=== PATIENT | female | born 1965 | race Caucasian/White ===

== ENCOUNTER → 2019-10-09 08:44 | Outpatient (BNVA) | payer MEDICAID, SELFPAY | PROVIDERS: PCP Family Medicine; Referring Provider Internal Medicine Rheumatology; Visit Provider Internal Medicine Rheumatology | DX: M05.9 Rheumatoid arthritis with rheumatoid factor, unspecified (principal); Z79.899 Other long term (current) drug therapy; Z11.59 Encounter for screening for other viral diseases; M81.0 Age-related osteoporosis without current pathological fracture; D49.519 Neoplasm of unspecified behavior of unspecified kidney; Z79.52 Long term (current) use of systemic steroids; Z72.89 Other problems related to lifestyle | CPT/HCPCS: 36415; 80076; 82306; 82565; 85651; 86140; 86704; 99214 ==

== ENCOUNTER → 2019-10-09 09:50 | Outpatient (BNVA) | payer MEDICAID, SELFPAY | PROVIDERS: PCP Family Medicine; Referring Provider Internal Medicine Rheumatology; Visit Provider Internal Medicine Rheumatology | DX: M05.9 Rheumatoid arthritis with rheumatoid factor, unspecified (principal); Z79.899 Other long term (current) drug therapy; Z11.59 Encounter for screening for other viral diseases; M81.0 Age-related osteoporosis without current pathological fracture; D49.519 Neoplasm of unspecified behavior of unspecified kidney; Z79.52 Long term (current) use of systemic steroids | CPT/HCPCS: 85025 ==

== ENCOUNTER → 2020-01-01 10:32 | Outpatient (BNVA) | payer MEDICAID, SELFPAY | PROVIDERS: PCP Family Medicine; Visit Provider Family Medicine | DX: Z90.5 Acquired absence of kidney (principal); M19.90 Unspecified osteoarthritis, unspecified site | CPT/HCPCS: 80053; 81000; 85025 ==

== ENCOUNTER → 2020-03-19 08:44 | Outpatient (BNVA) | payer MEDICAID, SELFPAY | PROVIDERS: PCP Family Medicine; Visit Provider Internal Medicine Rheumatology | DX: M05.79 Rheumatoid arthritis with rheumatoid factor of multiple sites without organ or systems involvement (principal); Z79.899 Other long term (current) drug therapy; R79.89 Other specified abnormal findings of blood chemistry; Z79.52 Long term (current) use of systemic steroids; Z85.528 Personal history of other malignant neoplasm of kidney; Z90.5 Acquired absence of kidney; Z87.891 Personal history of nicotine dependence | CPT/HCPCS: 36415; 82565; 84520; 99214 ==

== ENCOUNTER 2020-06-06 10:34 | Emergency (ER) | payer MEDICAID, SELFPAY ==
[2020-06-06 10:55] VITALS: BP 134/83; PULSE 78; RESP 18; TEMP 36.8; O2SAT 99; BMI 27.1
--- NOTE | 2020-06-06 11:09 | W.ED.NEUROSD ---
HPI - Neuro Symptoms/Deficit General: Chief Complaint: Neuro Symptoms/Deficit Stated Complaint: pain on the left side of head Time Seen by Provider: 06/06/20 11:04 Source: patient Mode of arrival: ambulatory Limitations: no limitations History of Present Illness: HPI Narrative: 54-year-old female who has a history of trigeminal neuralgia. Patient states she is scheduled for surgery next week for trigeminal neuralgia but is had a flare this week. She is unable to take carbamazepine due to allergic reactions to it. She is only been taken Tylenol. States pain is sharp in nature and rates it a 8 out of 10. Denies any fevers. Has no rash. Associated symptoms: Deny chest pain, headache(s), nausea or vomiting Review of Systems Const: Denies: fever(s), chills, body aches or change in appetite Eyes: Denies: blurry vision or eye discomfort ENMT: Reports: sinus pain Card: Denies: chest pain Resp: Denies: dyspnea GI: Denies: abdominal pain, nausea, vomiting or diarrhea : Denies: dysuria Musc: Denies: neck pain or back pain Skin/Breast: Denies: rash Neuro: Denies: headache(s) Psych: Denies: depression Luigi/Lymph: Denies: easy bruising All/Imm: Denies: urticaria PFSH ED PFSH: Medical History Current chronic use of systemic steroids GERD (gastroesophageal reflux disease) High risk medication use History of kidney cancer Immunization counseling Neoplasm of kidney Osteoporosis 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 Single kidney Surgical History Hx of tonsillectomy Family History Mother Cancer Diabetes Hypertension CAD (coronary artery disease) Rheumatoid arthritis Father Hypertension CAD (coronary artery disease) Myocardial infarction Other Heart disease Lupus Denies family history of Chronic kidney disease (CKD) Systemic lupus erythematosus (SLE) in adult Stroke Social History Smoking and tobacco status: former smoker Quit status (tobacco): has quit using tobacco Alcohol intake: never Desire information about alcohol rehabilitation?: No Desire information about substance/drug rehabilitation?: No History of recent travel: No Current gender identity: Female Physical Exam Const: COMMON NORMALS: no acute distress, patient oriented x3 and healthy appearing HENMT: COMMON NORMALS: normocephalic and atraumatic HEAD & SCALP: normocephalic and atraumatic Eye: COMMON NORMALS: Equal, round and reactive pupils present and EOMs intact bilaterally PUPIL: Yes Equal, round and reactive pupils present Neck/C-Spine: COMMON NORMALS: full ROM and supple Chest: COMMONS NORMALS: normal inspection of the chest and normal palpation of entire chest wall Resp: COMMON NORMALS: normal respiratory effort, No retractions, No use of accessory muscles and clear to auscultation bilaterally AUSCULTATION: clear to auscultation bilaterally Cardio: COMMON NORMALS: regular rate, regular rhythm and No murmurs present (Cardio) RATE: regular rate RHYTHM: regular rhythm GI: COMMON NORMALS: Normal to inspection, nondistended, normoactive bowel sounds present, Soft to palpation, non-tender and no masses PALPATION: Yes Soft to palpation Extremity: COMMON NORMALS: normal to inspection and full ROM Neuro: COMMON NORMALS: patient oriented x3, moves all extremities and no focal motor deficits Psych: COMMON NORMALS: mental status grossly normal, Normal thought process present and cooperative THOUGHT PROCESS: Normal thought process present Skin: COMMON NORMALS: no rashes or lesions noted and no wounds GENERAL SKIN EXAM: no rashes or lesions noted Course Vital Signs: Vital signs: Vital Signs Temperature 98.2 F 06/06/20 10:55 Pulse Rate 78 06/06/20 10:55 Respiratory Rate 18 06/06/20 10:55 Blood Pressure 134/83 06/06/20 10:55 Pulse Oximetry 99 06/06/20 10:55 MDM - Neuro Symptoms/Deficit MDM Narrative: Medical decision making narrative: Patient presents here with pain from trigeminal neuralgia. We will place her on hydrocodone at this time and she is to follow-up with her surgeon. She is to return if worsening. She has no signs of shingles or any other infection. Discharge Plan Discharge Patient Disposition: Home Clinical Impression: Trigeminal neuralgia Condition: Stable Prescriptions: [place] 5-325 mg tablet 1 tab PO Q6H PRN (Reason: pain) Qty: 14 RF: 0 No Action albuterol sulfate [Ventolin HFA] 90 mcg/actuation HFA aerosol inhaler 1 inh INHALATION QID PRN (Reason: shortness of breath or wheezing) Qty: 6.7 RF: 1 aspirin [Adult Low Dose Aspirin] 81 mg tablet,delayed release (DR/EC) 81 mg PO DAILY RF: 0 verapamil 40 mg tablet 40 mg PO DAILY RF: 0 omeprazole 40 mg capsule,delayed release(DR/EC) 40 mg PO DAILY Qty: 30 RF: 3 prednisone 2.5 mg tablet See Rx Instructions PO .COMPLEX Qty: 60 RF: 3 folic acid 1 mg tablet 1 mg PO DAILY Qty: 90 RF: 3 tizanidine 2 mg tablet See Rx Instructions .ROUTE .COMPLEX Qty: 30 RF: 2 bupropion HCl 150 mg tablet extended release 24 hr See Rx Instructions .ROUTE .COMPLEX Qty: 90 RF: 0 gabapentin 600 mg tablet See Rx Instructions .ROUTE .COMPLEX Qty: 90 RF: 3 diclofenac sodium 1 % gel See Rx Instructions .ROUTE .COMPLEX Qty: 100 RF: 1 lidocaine 5 % ointment See Rx Instructions .ROUTE .COMPLEX Qty: 35.44 RF: 1 Discharge Orders: Discharge Order (Routine); Ordered 06/06/20 Ordered By: Sabina Morris Referrals: Jesenia Guardado MD [Primary Care Provider] - 1-3 days Discharge Diet: Advance as tolerated Discharge Activity: Resume usual activity Patient Instructions: Trigeminal Neuralgia (ED) Coding Level of Care Code ED Educational Diagnostician for Celine Tompkins
== END 2020-06-06 11:18 | disposition home or self-care (01) ==
PROVIDERS: Emergency Provider Emergency Medicine; PCP Family Medicine
DX: G50.0 Trigeminal neuralgia (principal); Z79.82 Long term (current) use of aspirin; Z85.528 Personal history of other malignant neoplasm of kidney; Z90.5 Acquired absence of kidney; Z87.891 Personal history of nicotine dependence
CPT/HCPCS: 12345; 99281; 99282

== ENCOUNTER → 2020-07-15 14:34 | Outpatient (BNVA) | payer MEDICAID, SELFPAY | PROVIDERS: PCP Family Medicine; Visit Provider Internal Medicine Rheumatology | DX: M05.79 Rheumatoid arthritis with rheumatoid factor of multiple sites without organ or systems involvement (principal); L40.9 Psoriasis, unspecified; Z85.528 Personal history of other malignant neoplasm of kidney; Z87.891 Personal history of nicotine dependence; Z79.899 Other long term (current) drug therapy; Z79.52 Long term (current) use of systemic steroids | CPT/HCPCS: 36415; 80076; 82306; 82565; 85025; 85651; 86140; 99213 ==

== ENCOUNTER → 2020-08-05 16:46 | Outpatient (BNVA) | payer MEDICAID, SELFPAY | PROVIDERS: PCP Family Medicine; Visit Provider Family Medicine | DX: J02.9 Acute pharyngitis, unspecified (principal) | CPT/HCPCS: 87071; 87880 ==

== ENCOUNTER 2020-10-21 12:34 | Emergency (ER) | payer MEDICAID, SELFPAY ==
[2020-10-21 12:56] VITALS: BP 114/76; PULSE 79; RESP 14; TEMP 36.8; O2SAT 98; BMI 27.4
--- NOTE | 2020-10-21 13:47 | ECG_ITS ---
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 Measurements Intervals [place] Rate: 74 P: 66 MT: 186 QRS: 53 QRSD: 98 T: 59 QT: 396 QTc: 440 Interpretive Statements SINUS RHYTHM Compared to ECG 07/13/2019 00:54:57 No significant changes Electronically Signed On 10-22-2020 5:57:31 FILM NUMBERER by Bonnie Hanks M.D. [email or web address]
[2020-10-21 13:53] LABS: Basophils # 0.1 10^3/uL (0.0-0.1); Basophils % 0.6 %; Eosinophils % 0.4 %; Hematocrit 41.8 % (37.0-47.0); Hemoglobin 13.2 g/dL (11.5-15.3); Lymphocytes # 1.8 10^3/uL (0.8-4.8); Lymphocytes % 19.6 %; Mean Corpuscular HGB Conc 31.6 g/dL (30.0-36.0); Mean Corpuscular Hemoglobin 26.6 pg (28.0-34.0); Mean Corpuscular Volume 84.3 fL (81-99); Mean Platelet Volume 9.4 fL (7.4-10.4); Monocytes # 0.6 10^3/uL (0.2-0.9); Monocytes % 6.7 %; Neutrophils # 6.55 10^3/uL (1.8-7.7); Nucleated Red Blood Cells % 0 %; Platelet Count 302 10^3/cmm (130-400); Red Blood Count 4.96 10^6/uL (4.1-5.3); White Blood Count 9.1 10^3/uL (4.0-10.0)
--- NOTE | 2020-10-21 14:20 | ED_ITS ---
HPI - Abdominal Pain General: Chief Complaint: Abdominal Pain Stated Complaint: Bad lower abdominal pain Time Seen by Provider: 10/21/20 13:22 History of Present Illness: HPI narrative: 55-year-old female presents to the emergency room with complaints of abdominal pain she localizes it to the left lower quadrant radiating from the flank down into her groin. Pain is worse with movement better with rest is very positional. Is also exacerbated by palpation. She is not have any rash. Denies dysuria urgency or frequency she is previously had a nephrectomy on that left side. In addition she has had a previous salpingectomy but the ovary is intact on the left side. MD elicited complaint: abdominal pain Pertinent past history: none Onset (ago): day(s) Pain Consistency: constant Location: L flank Severity: moderate Quality: sharp Radiation: other (Left groin) Exacerbating factors: movement Relieving factors: rest Associated Symptoms: Denies anorexia, belching, bloating, change in bowel habits, change in stool character, chills, coffee ground emesis, constipation, GI cramping, diarrhea, dyspepsia, dysuria, excessive flatus, fever(s), heartburn, hematochezia, hematuria, hematemesis, fecal incontinence, loose stools, melena, nausea, poor appetite, syncope and vomiting Review of Systems Const: Denies: fever(s) or chills ENMT: Denies: throat pain, ear or mastoid pain, nasal discharge or nasal congestion Card: Denies: syncope Resp: Denies: dyspnea, productive cough or non-productive cough GI: Denies: nausea, vomiting, hematemesis, coffee ground emesis, heartburn, diarrhea, constipation, GI cramping, belching, excessive flatus, fecal incontinence, change in bowel habits, change in stool character, hematochezia or melena : Denies: dysuria Skin/Breast: Denies: rash or pruritus PFSH ED PFSH: Medical History Current chronic use of systemic steroids GERD (gastroesophageal reflux disease) High risk medication use History of kidney cancer Immunization counseling Neoplasm of kidney Osteoporosis 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 Single kidney Surgical History Hx of tonsillectomy Family History Mother Cancer Diabetes Hypertension CAD (coronary artery disease) Rheumatoid arthritis Father Hypertension CAD (coronary artery disease) Myocardial infarction Other Heart disease Lupus Denies family history of Chronic kidney disease (CKD) Systemic lupus erythematosus (SLE) in adult Stroke Social History Smoking and tobacco status: former smoker Quit status (tobacco): has quit using tobacco Alcohol intake: never Desire information about alcohol rehabilitation?: No Desire information about substance/drug rehabilitation?: No History of recent travel: No Current gender identity: Female Physical Exam Const: COMMON NORMALS: no acute distress GENERAL APPEARANCE: cooperative and comfortable ORIENTATION/CONSCIOUSNESS: Yes awake, Yes oriented to person, Yes oriented to place and Yes oriented to time HENMT: COMMON NORMALS: normocephalic, atraumatic and hearing grossly normal bilaterally HEAD & SCALP: normocephalic and atraumatic Neck/C-Spine: COMMON NORMALS: no JVD Resp: COMMON NORMALS: normal respiratory effort, No retractions, No use of accessory muscles and clear to auscultation bilaterally AUSCULTATION: clear to auscultation bilaterally Cardio: COMMON NORMALS: no JVD, regular rate, regular rhythm and No murmurs present (Cardio) RATE: regular rate RHYTHM: regular rhythm GI: COMMON NORMALS: Soft to palpation and No hepatosplenomegaly present AUSCULTATION: Yes normoactive bowel sounds PALPATION: Yes Soft to palpation, No Tenderness to palpation present (GI), No Guarding due to palpation present (GI) and Yes No hepatosplenomegaly present Extremity: COMMON NORMALS: normal to inspection, capillary refill normal, no clubbing, cyanosis or edema, no calf tenderness and no pedal edema Neuro: SENSORIUM/ORIENTATION: Yes oriented to person, Yes oriented to place and Yes oriented to time Skin: COMMON NORMALS: no rashes or lesions noted GENERAL SKIN EXAM: no rashes or lesions noted Course Vital Signs: Vital signs: Vital Signs Temperature 98.2 F 10/21/20 12:56 Pulse Rate 72 10/21/20 16:21 Respiratory Rate 20 H 10/21/20 16:21 Blood Pressure 112/79 10/21/20 16:21 Pulse Oximetry 98 10/21/20 16:21 MDM - Abdominal Pain MDM Narrative: Medical decision making narrative: Pain reproducible with movement and palpation in the paraspinal muscles at the level of the lumbar spine. Labs reviewed. She has no trauma history. We will discharge her home on diclofenac tizanidine if worsens or change recheck. She did improve with m edications given in the ER. Lab Data: Labs: Lab Results 10/21/20 10/21/20 10/21/20 Range/Units 13:39 13:39 14:10 WBC 9.1 (4.0-10.0) 10^3/ uL RBC 4.96 (4.1-5.3) 10^6/u L Hgb 13.2 (11.5-15.3) g/dL Hct 41.8 (37.0-47.0) % MCV 84.3 (81-99) fL MCH 26.6 L (28.0-34.0) pg MCHC 31.6 (30.0-36.0) g/dL RDW 15.0 (12.1-15.1) % Plt Count 302 (130-400) 10^3/c mm MPV 9.4 (7.4-10.4) fL Neut % (Auto) 72.0 % Lymph % (Auto) 19.6 % Esmeralda % (Auto) 6.7 % Eos % (Auto) 0.4 % Baso % (Auto) 0.6 % Neut # (Auto) 6.55 (1.8-7.7) 10^3/u L Lymph # (Auto) 1.8 (0.8-4.8) 10^3/u L Esmeralda # (Auto) 0.6 (0.2-0.9) 10^3/u L Eos # (Auto) 0.0 (0.0-0.8) 10^3/u L Baso # (Auto) 0.1 (0.0-0.1) 10^3/u L Nucleated RBC % (a uto) 0 % Nucleated RBCs # 0.0 /100WBC Sodium Cancelled Potassium Cancelled Chloride Cancelled Carbon Dioxide Cancelled Anion Gap Cancelled BUN Cancelled Creatinine Cancelled GFR Calculation Cancelled Glucose Cancelled Calculated Osmolal ity Cancelled Calcium Cancelled Total Bilirubin Cancelled AST Cancelled ALT Cancelled Alkaline Phosphata se Cancelled Total Protein Cancelled Albumin Cancelled Globulin Cancelled Urine Color Straw (Yellow) Urine Appearance Clear (CLEAR) Urine pH 6 (5-7) Ur Specific Gravit y 1.015 (1.005-1.030) Urine Protein Neg (Negative) Urine Glucose (UA) Norm (Normal) Urine Ketones Negative (Negative) Urine Blood 2+ H (Negative) Urine Nitrate Negative (Negative) Urine Bilirubin Neg (Negative) Urine Urobilinogen Norm (Negative) mg/dL Ur Leukocyte Jacqui ase Negative (Negative) Urine RBC 0-4 H (0-2) /hpf Urine WBC None (0-5) /hpf Ur Squamous Epith Cells 0-4 H (0-5) /hpf Amorphous Sediment Not Reportable Urine Bacteria Trace (NONE) /hpf 10/21/20 Range/Units 14:12 WBC (4.0-10.0) 10^3/ uL RBC (4.1-5.3) 10^6/u L Hgb (11.5-15.3) g/dL Hct (37.0-47.0) % MCV (81-99) fL MCH (28.0-34.0) pg MCHC (30.0-36.0) g/dL RDW (12.1-15.1) % Plt Count (130-400) 10^3/c mm MPV (7.4-10.4) fL Neut % (Auto) % Lymph % (Auto) % Esmeralda % (Auto) % Eos % (Auto) % Baso % (Auto) % Neut # (Auto) (1.8-7.7) 10^3/u L Lymph # (Auto) (0.8-4.8) 10^3/u L Esmeralda # (Auto) (0.2-0.9) 10^3/u L Eos # (Auto) (0.0-0.8) 10^3/u L Baso # (Auto) (0.0-0.1) 10^3/u L Nucleated RBC % (a uto) % Nucleated RBCs # /100WBC Sodium 138 Potassium 4.2 Chloride 102 Carbon Dioxide 27 Anion Gap 13.2 BUN 13 Creatinine 1.3 H GFR Calculation 42.2 L Glucose 99 Calculated Osmolal ity 286 Calcium 9.2 Total Bilirubin 0.2 AST 14 ALT 7 Alkaline Phosphata se 91 Total Protein 7.3 Albumin 4.5 Globulin 2.8 Urine Color (Yellow) Urine Appearance (CLEAR) Urine pH (5-7) Ur Specific Gravit y (1.005-1.030) Urine Protein (Negative) Urine Glucose (UA) (Normal) Urine Ketones (Negative) Urine Blood (Negative) Urine Nitrate (Negative) Urine Bilirubin (Negative) Urine Urobilinogen (Negative) mg/dL Ur Leukocyte Jacqui ase (Negative) Urine RBC (0-2) /hpf Urine WBC (0-5) /hpf Ur Squamous Epith Cells (0-5) /hpf Amorphous Sediment Urine Bacteria (NONE) /hpf Discharge Plan Discharge Patient Disposition: Home Clinical Impression: Acute lumbar myofascial strain Condition: Stable Prescriptions: New diclofenac sodium 75 mg tablet,delayed release (DR/EC) 75 mg PO Q12H PRN (Reason: pain) Qty: 20 RF: 0 tizanidine 4 mg capsule 4 mg PO Q6H PRN (Reason: muscle spasticity) Qty: 30 RF: 0 Held diclofenac sodium 1 % gel See Rx Instructions .ROUTE .COMPLEX Qty: 100 RF: 1 Hold Instructions: Resume on 10/31/20. No Action albuterol sulfate [Ventolin HFA] 90 mcg/actuation HFA aerosol inhaler 1 inh INHALATION QID PRN (Reason: shortness of breath or wheezing) Qty: 6.7 RF: 1 lidocaine 5 % ointment See Rx Instructions .ROUTE .COMPLEX Qty: 35.44 RF: 2 gabapentin 600 mg tablet 600 mg PO TID@,, RF: 0 tizanidine 2 mg tablet 2 mg PO BEDTIME@1999 RF: 0 verapamil 40 mg tablet 40 mg PO DAILY@08 RF: 0 omeprazole 40 mg capsule,delayed release(DR/EC) 40 mg PO DAILY@08 RF: 0 prednisone 2.5 mg tablet 2.5 mg PO DAILY@08 RF: 0 dexamethasone 0.1 % drops,suspension 1 drp ophthalmic (eye) BID@, RF: 0 folic acid 1 mg tablet 1 mg PO DAILY@08 RF: 0 bupropion HCl 150 mg tablet extended release 24 hr 150 mg PO DAILY@08 RF: 0 Discharge Orders: Discharge ED (Routine); Ordered 10/21/20 Ordered By: Royer Hernadez Referrals: Jesenia Guardado MD [Primary Care Provider] - Discharge Diet: Usual diet Discharge Activity: Increase activity as tolerated Patient Instructions: Opioid Safety Coding Level of Care Code ED Cornice Maker for Celine Tompkins
[2020-10-21 14:31] LABS: Glucose Urine UA Norm (Normal); Ketones Urine Negative (Negative); Protein Urine Neg (Negative); Specific Gravity, Urine 1.015 (1.005-1.030); Urine Appearance Clear (CLEAR); Urine Color Straw (Yellow); pH Urine 6 (5-7)
[2020-10-21 14:32] LABS: Add Urine Culture? No; Add Urine Microscopic? YES; Bacteria Urine TRACE /hpf; Bilirubin Urine Neg (Negative); Blood Urine 2+ (Negative); Leukocyte Esterase Urine Negative (Negative); Nitrate Urine Negative (Negative); RBC Urine 0-4 /hpf (0-2); Squamous Epithelial Cell Urine 0-4 /hpf (0-5); Urobilinogen Urine Norm (Negative)
[2020-10-21 14:42] LABS: Alanine Aminotransferase 7 U/L (0-33); Albumin Level 4.5 g/dL (3.5-5.2); Alkaline Phosphatase 91 IU/L (35-105); Anion Gap 13.2 (5-19); Aspartate Amino Transferase 14 U/L (0-32); Blood Urea Nitrogen 13 mg/dL (6-20); Calcium 9.2 mg/dL (8.5-10.5); Carbon Dioxide 27 mmol/L (22-29); Chloride 102 mmol/L (98-107); Globulin 2.8 g/dL (1.3-4.6); Glomerular Filtration Rate 42.2 mL/min (90-130); Glucose 99 mg/dL (65-115); Osmolality Calculated 286 mOsm/kg (285-295); Potassium 4.2 mmol/L (3.5-5.1); Sodium 138 mmol/L (136-145); Total Bilirubin 0.2 mg/dL (0.15-1.2); Total Protein 7.3 g/dL (6.6-8.7)
[2020-10-21] MEDS: ketorolac 30 mg/mL INJ IM (15:56)
[2020-10-21] MEDS: orphenadrine 30 mg/mL Inj 2 mL 60 MG IM (15:57)
[2020-10-21 16:21] VITALS: BP 112/79; PULSE 72; RESP 20; O2SAT 98
== END 2020-10-21 16:15 | disposition home or self-care (01) ==
PROVIDERS: Physician Assistant; Emergency Provider Family Medicine; PCP Family Medicine
DX: S39.012A Strain of muscle, fascia and tendon of lower back, initial encounter (principal); Z85.528 Personal history of other malignant neoplasm of kidney; Z90.5 Acquired absence of kidney; Z87.891 Personal history of nicotine dependence; X58.XXXA Exposure to other specified factors, initial encounter
CPT/HCPCS: 36415; 80053; 81001; 85025; 93005; 96372; 99283; J1885; J2360

== ENCOUNTER 2020-11-05 08:00 | Outpatient (CLI) | payer MEDICAID, SELFPAY ==
[2020-11-05] MEDS: iodixanol 320 mg/mL 100mL Btl IV (09:05)
--- NOTE | 2020-11-05 09:30 | CT_ITS ---
WS: [id number] CT ABDOMEN AND PELVIS WITH CONTRAST HISTORY: R10.9 - Unspecified abdominal pain TECHNIQUE: Imaging performed of the abdomen and pelvis with IV contrast. Single phase imaging of the abdomen. Coronal and sagittal reformats are submitted. All CT scans at [facility] use at least one of these dose optimization techniques: automated exposure control; mA and/or kV adjustment per patient size (includes targeted exams where dose is matched to clinical indication); or iterativ e reconstruction. IV CONTRAST: Visipaque 320; 95 mL IV. Oral contrast: Yes. DLP: 1061.85 mGycm COMPARISON: 07/13/2019 Lower thorax: Benign stable granulomatous and subcentimeter nodules at the lung bases. Heart is oneida l size. Small hiatal hernia. Liver/biliary system: Liver is normal size. There are numerous low-attenuation lesions throughout the liver consistent with cysts. The largest subhepatic at the junction between the RIGHT and LEFT hepat ic lobes measures 3.2 x 3.6 cm. There are numerous additional cysts. Some of these are too small to c ompletely characterize. No bile duct dilatation. Gallbladder: Slightly contracted gallbladder. Numerous stones are present without evidence for acute cholecystitis. Pancreas: Normal. Spleen: Normal. Adrenal glands: Normal. Right kidney: Normal size RIGHT kidney. Focal cortical defect containing a cyst and calcification in the upper pole. There is new mild dilatation of the central pelvis. This is new pelvic dilatation. Ur eter tapers normally. No obstruction is identified. Left kidney: Prior nephrectomy. No recurrent mass at the renal bed. Aorta: Mild atherosclerosis with no aneurysm. Lymphadenopathy: None. Free fluid: None. GI tract: The appendix is not definitely identified but there are no inflammatory changes. Mild const ipation throughout the colon. No GI tract obstruction. Abdominal wall: Unremarkable abdominal wall. No hernia. Area of palpable nodularity along the LEFT ab domen is negative for underlying mass or adenopathy. Pelvis: Urinary bladder is normally distended. Normal size anteverted uterus. Bones: No osteoblastic or osteolytic bone disease. Sclerosis involving the superior RIGHT femoral hea d is probably an area of developing osteonecrosis. Also noted on the prior study. No significant prog ression. CT/CT abdomen pelvis w con* [id number] IMPRESSION: 1. Status post LEFT nephrectomy. No recurrent mass or adenopathy in the renal bed. 2. Very minimal dilatation of the central RIGHT renal pelvis is new. This may be a small extrarenal pelvis. At this time there is no calyceal dilatation. 3. Cholelithiasis without acute cholecystitis. 4. Numerous hepatic cysts. 5. No adenopathy or acute abdominal or pelvic findings are identified. No abno rmality seen along the LEFT abdominal wall.
== END 2020-11-05 08:01 | disposition home or self-care (01) ==
LOC: RADWPI 08:02
PROVIDERS: PCP Family Medicine; Visit Provider Nurse Practitioner Family
DX: R10.9 Unspecified abdominal pain (principal); Z90.5 Acquired absence of kidney; K80.20 Calculus of gallbladder without cholecystitis without obstruction; K76.89 Other specified diseases of liver
CPT/HCPCS: 74177; Q9967

== ENCOUNTER 2020-11-13 13:29 | Outpatient (CLI) | payer MEDICAID, SELFPAY ==
--- NOTE | 2020-11-13 13:41 | XR_ITS ---
WS: [id number] Lumbar spine, 3 views, 11/13/2020 Clinical Data: M54.9 - Dorsalgia, unspecified Comparison: Lumbar spine, 08/13/2010. Findings: No compression fractures or subluxation is seen. No disc space narrowing is seen. The transverse proc esses and SI joints are normal. There is a calcification over the upper pole of the right kidney. There are phleboliths in the true p gabino. XR/XR lumbar spine 2-3V* [id number] Impression: Negative lumbar spine.
--- NOTE | 2020-11-13 13:41 | XR_ITS ---
WS: [id number] Thoracic spine, 3 views, 11/13/2020 Clinical Data: M54.9 - Dorsalgia, unspecified Comparison: None. Findings: No compression fractures are seen. The disc heights are normal. The paravertebral regions are normal. Minimal anterior osteoarthritic spurring is seen in the mid tho racic vertebral bodies. XR/XR thoracic spine 3V* [id number] Impression: Minimal anterior osteoarthritic spurs of the mid thoracic vertebral bodies.
== END 2020-11-13 13:30 | disposition home or self-care (01) ==
PROVIDERS: PCP Family Medicine; Visit Provider Nurse Practitioner
DX: M54.5 Low back pain (principal); M54.6 Pain in thoracic spine
CPT/HCPCS: 72072; 72100; 82607

== ENCOUNTER 2021-01-01 07:59 | Outpatient (CLI) | payer MEDICAID, SELFPAY ==
--- NOTE | 2021-01-01 08:00 | MR_ITS ---
WS: [id number] MRI THORACIC SPINE WITHOUT CONTRAST TECHNIQUE: Sagittal T1, T2 and STIR imaging. Axial T2 imaging. Noncontrast imaging obtained. CLINICAL INFORMATION: M47.814 - Spondylosis without myelopathy or radiculopathy, thoracic region COMPARISON: None. FINDINGS: Mild thoracic curve. Mild thoracic kyphosis. No acute compression. Normal bone marrow signal. A few i ncidental hemangiomas. A few tiny foci of T2 hyperintensity in the thoracic cord more prominent at T 10 and T11 likely due to remote inflammatory or ischemic insult. This is of doubtful current clinical significance. Thoracic cord signal is otherwise normal. No high-grade central canal stenosis. Small central disc protrusions more prominent at T7-T8 and T8-T9 with slight effacement of the ventra l thecal sac. Mild facet arthropathy in the lower thoracic spine. No disc extrusions. Normal caliber thoracic aorta. Left nephrectomy. Partially visualized hepatic and renal cysts. MR/MR thoracic spin wo con* [id number] IMPRESSION: 1. Mild thoracic kyphosis. No acute compression. No high-grade central canal n arrowing. 2. Small central protrusions T7-T8 and T8-9 with slight effacement of ventral thecal sac. Spinal canal is patent. 3. A few tiny foci of chronic appearing T2 hyperintensity in the thoracic cord more prominent at T10 and T11 appears chronic and likely incidental. 4. Mild facet arthropathy lower thoracic spine. 5. Prior left nephrectomy.
== END 2021-01-01 08:00 | disposition home or self-care (01) ==
LOC: RADSHAW 08:03
PROVIDERS: PCP Nurse Practitioner; Visit Provider Nurse Practitioner
DX: M47.814 Spondylosis without myelopathy or radiculopathy, thoracic region (principal); M40.204 Unspecified kyphosis, thoracic region; M51.24 Other intervertebral disc displacement, thoracic region; Z90.5 Acquired absence of kidney
CPT/HCPCS: 72146

== ENCOUNTER → 2021-01-06 08:26 | Outpatient (BNVA) | payer MEDICAID, SELFPAY | PROVIDERS: PCP Nurse Practitioner; Visit Provider Internal Medicine Rheumatology | DX: M05.79 Rheumatoid arthritis with rheumatoid factor of multiple sites without organ or systems involvement (principal); Z79.899 Other long term (current) drug therapy; Z79.52 Long term (current) use of systemic steroids; R79.89 Other specified abnormal findings of blood chemistry; L40.9 Psoriasis, unspecified; Z90.5 Acquired absence of kidney; Z87.891 Personal history of nicotine dependence | CPT/HCPCS: 99214 ==

== ENCOUNTER → 2021-06-17 14:46 | Outpatient (BNVA) | payer MEDICAID, SELFPAY | PROVIDERS: PCP Nurse Practitioner; Visit Provider Nurse Practitioner | DX: I10 Essential (primary) hypertension (principal) | CPT/HCPCS: 80053; 80061; 81003; 85025; 86140 ==

== ENCOUNTER → 2021-09-03 08:24 | Outpatient (BNVA) | payer MEDICAID, SELFPAY | PROVIDERS: PCP Nurse Practitioner; Visit Provider Nurse Practitioner | DX: K21.9 Gastro-esophageal reflux disease without esophagitis (principal) | CPT/HCPCS: 80053; 81003; 84443; 85025 ==

== ENCOUNTER → 2021-12-16 11:01 | Outpatient (BNVA) | payer MEDICAID, SELFPAY | PROVIDERS: PCP Nurse Practitioner; Visit Provider Nurse Practitioner | DX: K21.9 Gastro-esophageal reflux disease without esophagitis (principal); H04.122 Dry eye syndrome of left lacrimal gland; G50.0 Trigeminal neuralgia; M05.79 Rheumatoid arthritis with rheumatoid factor of multiple sites without organ or systems involvement; Z12.39 Encounter for other screening for malignant neoplasm of breast; E55.9 Vitamin D deficiency, unspecified; I10 Essential (primary) hypertension | CPT/HCPCS: 80053; 80061; 82306; 82607; 85025 ==

== ENCOUNTER → 2021-12-31 15:24 | Outpatient (BNVA) | payer MEDICAID, SELFPAY | PROVIDERS: PCP Nurse Practitioner; Visit Provider Internal Medicine | DX: R00.2 Palpitations (principal); Z87.891 Personal history of nicotine dependence | CPT/HCPCS: 99213 ==

== ENCOUNTER 2022-01-01 15:15 | Outpatient (CLI) | payer MEDICAID, SELFPAY ==
--- NOTE | 2022-01-01 15:21 | US_ITS ---
WS: [id number] THYROID ULTRASOUND HISTORY: NONTOXIC GOITER COMPARISON: None available. Right lobe: 1.3 cm x 1.7 cm x 4.6 cm (w x ap x l). Volume: 5.4 cm3. Normal size gland. There is a very mildly hypoechoic nodule in the superior pole measuring 0.9 x 0.7 x 1.1 cm. Mild increased vascularity. No echogenic foci or calcifications. The remaining gland is selvin y mildly heterogeneous. There is probably an additional nodule in the posterior mid to superior gland which is smaller. Left lobe: 1.3 cm x 1.0 cm x 4.2 cm (w x ap x l). Volume: 3.0 cm3. Normal size and echotexture. No significant or dominant nodules are present. Isthmus: 0.6 cm. US/US thyroid [id number] IMPRESSION: 1. There are 2 nodules in the RIGHT thyroid which contains benign features. Th ere are no suspicious masses. Yearly thyroid evaluation could be obtained to do cument stability. 2. No increased vascularity.
== END 2022-01-01 15:16 | disposition home or self-care (01) ==
LOC: RAD 15:17
PROVIDERS: PCP Nurse Practitioner; Visit Provider Nurse Practitioner
DX: E04.9 Nontoxic goiter, unspecified (principal); E04.1 Nontoxic single thyroid nodule
CPT/HCPCS: 76536

== ENCOUNTER 2022-01-29 08:30 | Outpatient (CLI) | payer MEDICAID, SELFPAY ==
--- NOTE | 2022-01-29 08:39 | MM_ITS ---
WS: [id number] BILATERAL 3D TOMOSYNTHESIS DIGITAL SCREENING MAMMOGRAPHY WITH CAD CLINICAL INFORMATION: Z12.39 - Encounter for other screening for malignant neop... HISTORY: Screening mammogram. No current complaints. COMPARISON: [id number] TECHNIQUE: Bilateral CC and MLO views. FINDINGS: The breasts are composed of heterogeneous fibroglandular density tissue, which can limit the detectio n of small underlying mass lesions. Stable intramammary lymph nodes upper outer RIGHT breast. A few i ncidental punctate calcifications. No suspicious mass, asymmetry, calcifications, or architectural di stortion. No evidence of malignancy. MM/[place] [id number] IMPRESSION: BI-RADS: 2-Benign FOLLOW UP: 1 Year Follow-up Recommend return to annual screening mammography.
== END 2022-01-29 08:31 | disposition home or self-care (01) ==
LOC: RAD 08:32
PROVIDERS: PCP Nurse Practitioner; Visit Provider Nurse Practitioner
DX: Z12.31 Encounter for screening mammogram for malignant neoplasm of breast (principal)
CPT/HCPCS: 77063; 77067

== ENCOUNTER → 2022-03-20 08:40 | Outpatient (BNVA) | payer MEDICAID, SELFPAY | PROVIDERS: PCP Nurse Practitioner; Visit Provider Nurse Practitioner | DX: E55.9 Vitamin D deficiency, unspecified (principal); R06.02 Shortness of breath; H04.122 Dry eye syndrome of left lacrimal gland; K21.9 Gastro-esophageal reflux disease without esophagitis; G50.0 Trigeminal neuralgia; M05.79 Rheumatoid arthritis with rheumatoid factor of multiple sites without organ or systems involvement; E78.2 Mixed hyperlipidemia; E04.1 Nontoxic single thyroid nodule; Z78.0 Asymptomatic menopausal state | CPT/HCPCS: 80053; 85025 ==

== ENCOUNTER → 2022-04-17 10:08 | Outpatient (BNVA) | payer MEDICAID, SELFPAY | PROVIDERS: PCP Nurse Practitioner; Visit Provider Internal Medicine | DX: R00.2 Palpitations (principal); R06.02 Shortness of breath | CPT/HCPCS: 93270; 99214 ==

== ENCOUNTER 2022-05-06 13:32 | Outpatient (CLI) | payer MEDICAID, SELFPAY ==
--- NOTE | 2022-05-06 15:00 | XR_ITS ---
WS: [id number] SCREENING DEXA SCAN [employer] CLINICAL INFORMATION: Z78.0 - Asymptomatic menopausal state COMPARISON: 2019 FINDINGS: The L1-L4 bone mineral density measures 0.964 g/cm2. This corresponds to a T score score of -1.8 and Z score of -0.6. Left femoral neck bone mineral density measures 0.932 g/cm2. This corresponds to a T score of -0.6 an d Z score of 0.3. Right femoral neck bone mineral density measures 0.819 g/cm2. This corresponds to a T score -1.5of an d Z score of -0.5. Mean femoral neck bone mineral density measures 0.876 g/cm2. This corresponds to a T score of -1.0 an d Z score of -0.1. XR/XR DEXA axial skeleton* [id number] IMPRESSION: Osteopenia Patient's FRAX calculated 10 year probability for major osteoporotic fracture i s 10.9 % and osteoporotic hip fracture is 1.3%. Bone mineral density of the lumbar spine has decreased -2.4% since 2019. Bone mineral density femoral necks has decreased -4.1% since 2019.
== END 2022-05-06 13:33 | disposition home or self-care (01) ==
PROVIDERS: PCP Nurse Practitioner; Visit Provider Nurse Practitioner
DX: Z78.0 Asymptomatic menopausal state (principal); M85.80 Other specified disorders of bone density and structure, unspecified site
CPT/HCPCS: 77080

== ENCOUNTER 2022-06-19 14:13 | Outpatient (CLI) | payer MEDICAID, SELFPAY ==
--- NOTE | 2022-06-19 14:18 | US_ITS ---
WS: [id number] THYROID ULTRASOUND HISTORY: E04.1 - Nontoxic single thyroid nodule COMPARISON: 01/01/2022 Right lobe: 1.6 cm x 1.7 cm x 5.1 cm (w x ap x l). Volume: 7.4 cm3. Normal size gland. Hypoechoic nodules within the gland. These are complex cystic nodules with the lar gest in the mid gland measuring 1.2 x 0.6 x 1.4 cm with no increase in size. Smaller nodule in the po sterior gland measures 1.1 x 0.7 x 1.3 cm. No increase in size. No echogenic foci. Left lobe: 1.3 cm x 1.1 cm x 4.4 cm (w x ap x l). Volume: 3.3 cm3. Normal size and echotexture. No significant or dominant nodules are present. Isthmus: 0.3 cm. US/US thyroid [id number] IMPRESSION: 1. Stable RIGHT thyroid nodules. No increase in size since 01/01/2022. Yearly ul trasound evaluation can be obtained to document stability over care home. 2. Negative LEFT thyroid.
--- NOTE | 2022-06-19 14:30 | USCV_ITS ---
Noemi Quick Age: 56 Gender: F : 1965 Exam Date: 06/19/2022 14:28 Ordering Phys: Jarad Jacob M.D ([email or web address]) Technologist: MINDA Exam Location: [facility] [place] Indication: SHORTNESS OF BREATH BP: 120 / 60 HR: 58 Rhythm: Sinus Technical Quality: Good MEASUREMENTS (Male / Female) Normal Values 2D ECHO LVOT Diameter 2.0 cm LV Ejection Fraction MOD 2C 73.0 % LV Ejection Fraction 2C AL 74.8 % LA Diameter 3.0 cm LA Width 3.4 cm LA Height 3.7 cm RA Width 3.3 cm RA Height 3.5 cm Aorta at Sinotubular Diameter 2.1 cm IVC Diameter 1.7 cm M-MODE Aortic Annulus Diameter 2.5 cm LA Ao Ratio MM 1.1 MV E Point Septal Separation 0.4 cm DOPPLER AV Peak Velocity 122.3 cm/s LVOT Peak Velocity 111.0 cm/s AV Area Cont Eq vti 3.1 cm squared AV Area Cont Eq pk 2.8 cm squared MV Peak Velocity 92.0 cm/s MV Area PHT 3.5 cm squared Mitral E to A Ratio 0.9 MV E' Velocity 45.0 cm/s Mitral E to MV E' Ratio 6.6 Mitral E to LV E' Lateral Ratio 7.3 Mitral E to LV E' Septal Ratio 6.0 TR Peak Velocity 221.2 cm/s TR Peak Gradient 19.6 mmHg TR Mean Velocity 184.7 cm/s TR Mean Gradient 14.1 mmHg TR Velocity Time Integral 71.3 cm TV Peak E Velocity 52.0 cm/s Right Atrial Pressure 3.0 mmHg Pulmonary Artery Systolic Pressu 22.6 mmHg PV Peak Velocity 101.0 cm/s RV Acceleration Time 0.1 s RV Ejection Time 0.4 s RV AcT/ET 0.4 FINDINGS Left Ventricle Normal left ventricular size, systolic function and wall thickness, with no regional wall motion abnormalities. Left ventricular ejection fraction is estimated at 70 %. Normal diastolic function. Right Ventricle Normal right ventricular size and systolic function. RVSP could not be calculated due to incomplete tricuspid regurgitation velocity profile. Right Atrium Normal right atrial size. Left Atrium Normal left atrial size. Mitral Valve Structurally normal mitral valve. No mitral valve stenosis. Trace mitral valve regurgitation. Aortic Valve Structurally normal trileaflet aortic valve. No aortic valve stenosis. Trace aortic valve regurgitation. Tricuspid Valve Structurally normal tricuspid valve. No tricuspid valve stenosis. Trace tricuspid valve regurgitation. Pulmonic Valve Pulmonic valve not well visualized. Pericardium No pericardial effusion. Aorta Normal size aortic root and proximal ascending aorta. IVC Normal IVC dimension with >50% respiratory change of the inferior vena cava. CONCLUSIONS 1. Normal left ventricular size, systolic function and wall thickness, with no regional wall motion abnormalities. Left ventricular ejection fraction is estimated at 70 %. Normal diastolic function. 2. Trace aortic valve regurgitation. 3. When compared to study dated 12/21/2013, there has been no significant change. Bonnie Hanks MD (Electronically Signed) Final Date: 24 June 2022 08:44 S
== END 2022-06-19 14:14 | disposition home or self-care (01) ==
LOC: RAD 14:14
PROVIDERS: PCP Nurse Practitioner; Visit Provider Internal Medicine
DX: R06.02 Shortness of breath (principal); E04.2 Nontoxic multinodular goiter; I35.1 Nonrheumatic aortic (valve) insufficiency
CPT/HCPCS: 76536; 93306

== ENCOUNTER → 2022-07-07 08:44 | Outpatient (BNVA) | payer MEDICAID, SELFPAY | PROVIDERS: PCP Nurse Practitioner; Visit Provider Nurse Practitioner | DX: I10 Essential (primary) hypertension (principal); E55.9 Vitamin D deficiency, unspecified | CPT/HCPCS: 80053; 80061; 82306; 84443; 85025 ==

== ENCOUNTER → 2022-09-15 13:50 | Outpatient (BNVA) | payer MEDICAID, SELFPAY | PROVIDERS: PCP Nurse Practitioner; Visit Provider Nurse Practitioner | DX: I10 Essential (primary) hypertension (principal) | CPT/HCPCS: 80053; 81000; 85025 ==

== ENCOUNTER → 2022-12-08 14:01 | Outpatient (BNVA) | payer MEDICAID, SELFPAY | PROVIDERS: PCP Nurse Practitioner; Visit Provider Nurse Practitioner | DX: M05.79 Rheumatoid arthritis with rheumatoid factor of multiple sites without organ or systems involvement (principal) | CPT/HCPCS: 80048; 85025 ==

== ENCOUNTER 2022-12-24 12:50 | Outpatient (CLI) | payer MEDICAID, SELFPAY ==
--- NOTE | 2022-12-24 13:00 | CT_ITS ---
WS: [id number] LDCT LUNG CANCER SCREENING HISTORY: Z87.891 - Personal history of nicotine dependence TECHNIQUE: Axial imaging performed from the apices to 1 cm below the costophrenic angles. Coronal and sagittal reformats are submitted with axial MIP series. All CT scans at [facility] use at least one of these dose optimization techniques: automated exposure control; mA and/or kV adjustment per patient size (includes targeted exams where dose is matched to clinical indication); or iterativ e reconstruction. DLP: 44.89 mGy.cm DIvol: Mean CTDIvol: 0.70 (mGy) COMPARISON: CT abdomen 11/05/2020 and 07/13/2019 Diagnostic quality: Satisfactory Lungs: Nodule LEFT apex measures 1.0 cm. Benign calcified granulomata. Additional noncalcified nodule in the lingula measures 4 mm. This lingular nodule was present in 2019. Heart: Normal size heart with no pericardial effusion.. Other findings: Very mild atherosclerosis aorta. No adenopathy. Normal size pulmonary artery. Multipl e low-attenuation masses within the liver. Hepatic cysts have been previously described by CT. The la rgest cyst towards the anterior superior liver measures 4.2 cm. No adrenal mass. T11 hemangioma. CT/CT lung screening [id number] IMPRESSION: LUNG-RADS: 2-Benign Appearance or Behavior FOLLOW UP: 12 Month: Continue annual screening with LDCT OTHER FINDINGS (S MODIFIER): None.
== END 2022-12-24 12:51 | disposition home or self-care (01) ==
LOC: RAD 12:53
PROVIDERS: PCP Nurse Practitioner; Visit Provider Nurse Practitioner
DX: Z12.2 Encounter for screening for malignant neoplasm of respiratory organs (principal); Z87.891 Personal history of nicotine dependence
CPT/HCPCS: 71271

== ENCOUNTER → 2023-03-12 09:34 | Outpatient (BNVA) | payer MEDICAID, SELFPAY | PROVIDERS: PCP Nurse Practitioner; Visit Provider Nurse Practitioner | DX: E78.2 Mixed hyperlipidemia (principal) | CPT/HCPCS: 80053; 80061; 84443; 85025 ==

== ENCOUNTER → 2023-06-08 11:27 | Outpatient (BNVA) | payer MEDICAID, SELFPAY | PROVIDERS: PCP Nurse Practitioner; Visit Provider Nurse Practitioner | DX: Z85.528 Personal history of other malignant neoplasm of kidney (principal); G50.0 Trigeminal neuralgia; M05.79 Rheumatoid arthritis with rheumatoid factor of multiple sites without organ or systems involvement; R00.2 Palpitations; K21.9 Gastro-esophageal reflux disease without esophagitis | CPT/HCPCS: 80048 ==

== ENCOUNTER 2023-06-18 08:11 | Outpatient (CLI) | payer MEDICAID, SELFPAY ==
--- NOTE | 2023-06-18 08:15 | US_ITS ---
WS: [id number] ULTRASOUND THYROID TECHNIQUE: Ultrasound of the thyroid. CLINICAL INFORMATION: E04.1 - Nontoxic single thyroid nodule COMPARISON: 06/19/2022 and 01/01/2022 FINDINGS: Thyroid: Right and left thyroid lobes are normal in size and echotexture. Right thyroid lobe: 5.2 cm x 1.6 cm x 1.8 cm Isoechoic RIGHT superior thyroid nodule measuring 1.1 x 0.6 x 1.5 cm Isoechoic RIGHT superior posterior thyroid nodule measuring 0.6 0.5 x 1.3 cm Left thyroid lobe: 4.5 cm x 1.3 cm x 1.1 cm. Isthmus: 0.2 mm. Cervical lymphadenopathy: None. IMPRESSION: 1. No significant change compared to previous. 2. Stable RIGHT thyroid nodules unchanged since 06/19/2022. 3. Recommend continued surveillance. 4. No suspicious LEFT thyroid nodules.
== END 2023-06-18 08:12 | disposition home or self-care (01) ==
PROVIDERS: PCP Nurse Practitioner; Visit Provider Nurse Practitioner
DX: E04.1 Nontoxic single thyroid nodule (principal)
CPT/HCPCS: 76536

== ENCOUNTER → 2023-09-01 10:54 | Outpatient (BNVA) | payer MEDICAID, SELFPAY | PROVIDERS: PCP Nurse Practitioner; Visit Provider Nurse Practitioner | DX: K21.9 Gastro-esophageal reflux disease without esophagitis (principal); G50.0 Trigeminal neuralgia; R00.2 Palpitations; M05.79 Rheumatoid arthritis with rheumatoid factor of multiple sites without organ or systems involvement; Z12.83 Encounter for screening for malignant neoplasm of skin; I10 Essential (primary) hypertension; E78.2 Mixed hyperlipidemia | CPT/HCPCS: 80053; 80061; 82607; 85025 ==

== ENCOUNTER 2023-10-25 18:07 | Emergency (ER) | payer MEDICAID, SELFPAY ==
[2023-10-25 18:14] VITALS: BP 163/96; PULSE 83; RESP 18; TEMP 36.7; O2SAT 98; BMI 24.7
--- NOTE | 2023-10-25 18:26 | XRR_ITS ---
PROCEDURE INFORMATION: Exam: XR Left Shoulder Exam date and time: 10/25/2023 6:30 PM Age: 58 years old Clinical indication: Pain; Shoulder; Left; Additional info: Pain with movement TECHNIQUE: Imaging protocol: Radiologic exam of the left shoulder. Views: 2 or more views. COMPARISON: CT lung screening [id number] 12/24/2022 1:00 PM FINDINGS: Bones/joints: No acute fracture or dislocation. No AC joint widening or offset. The acromiohumeral distance is maintained. Mild narrowing of the glenohumeral joint. Soft tissues: Normal. XR/XR shoulder LT min 2V* [id number] IMPRESSION: No acute plain radiographic abnormality.
--- NOTE | 2023-10-25 18:27 | W.ED.EXTPRO ---
HPI - Extremity Problem General: Chief complaint: Extremity Injury, Upper Stated complaint: Left shoulder/Arm pain Time Seen by Provider: 10/25/23 18:17 History of Present Illness: 58yo female with a history of RA And osteoporosis presents with nontraumatic left shoulder pain that started yesterday morning when she woke up. Patient reports that she does not remember any injury to the area nor has she ever had any pain like this previously. States that it is a burning sensation to the front of the shoulder that goes down to her elbow. She states increased pain with movement. Keeping the arm stabilized reduce the pain, but does not make it go away completely. Patient states she has been taking extra strength Tylenol without improvement in her symptoms. She reports she is right-hand dominant. Denies any known previous injury to the left shoulder, fever, chills, body aches, fall/trauma/lifting heavy objects, difficulty moving her left fingers, any other concern at this time. Associated symptoms: Deny chest pain or fever(s) Review of Systems Const: Denies: fever(s), chills or body aches Card: Denies: chest pain Resp: Denies: dyspnea Musc: Reports: joint pain (left shoulder) PFSH ED PFSH: Medical History Noncompliance with medication regimen Seropositive rheumatoid arthritis of multiple sites Palpitations Immunization counseling History of kidney cancer Single kidney S/p nephrectomy GERD (gastroesophageal reflux disease) Osteoporosis High risk medication use Rheumatoid arthritis with rheumatoid factor Current chronic use of systemic steroids Neoplasm of kidney Surgical History Hx of tonsillectomy Family History Mother Cancer Diabetes Hypertension CAD (coronary artery disease) Rheumatoid arthritis Father Hypertension CAD (coronary artery disease) Myocardial infarction Other Heart disease Lupus Denies family history of Chronic kidney disease (CKD) Systemic lupus erythematosus (SLE) in adult Stroke Social History Smoking and tobacco/nicotine status: former use of tobacco/nicotine Quit status (tobacco/nicotine): has quit using Second hand smoke exposure: No Alcohol intake: never Substance/Drug Use: never Adopted: No Caregiver/support person: No Lives independently: Yes Household members: spouse Housing: House Marital status: Number of children: 3 service: No Current occupational status: unemployed Pets and animals: Yes Pets & animals: dog(s) Do you think of yourself as: Straight/Heterosexual Current gender identity: Female Physical Exam Const: COMMON NORMALS: no acute distress, patient oriented x3 and alert GENERAL APPEARANCE: cooperative ORIENTATION/CONSCIOUSNESS: Yes awake OTHER: Patient is sitting upright on the side of the stretcher in no acute distress. She is noted to be holding her left arm as if in pain. She is able to give history with no difficulty. Family is at bedside HENMT: COMMON NORMALS: normocephalic HEAD & SCALP: normocephalic Neck/C-Spine: COMMON NORMALS: full ROM CERVICAL SPINE: No Cervical spine tenderness Chest: CHEST: Yes Symmetrical chest wall rise Resp: COMMON NORMALS: normal respiratory effort Extremity: LEFT UPPER EXTREMITY: Yes shoulder joint Left shoulder joint: No inspection, Yes palpation and Yes ROM (no pain with slight extension/flexion. 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) Neuro: COMMON NORMALS: patient oriented x3 SENSORIUM/ORIENTATION: Yes alert Psych: COMMON NORMALS: cooperative ATTITUDE: Yes calm Skin: COMMON NORMALS: no rashes or lesions noted GENERAL SKIN EXAM: no rashes or lesions noted Course Vital Signs: Vital signs: Vital Signs Temperature 98.0 F 10/25/23 18:14 Pulse Rate 83 10/25/23 18:14 Respiratory Rate 18 10/25/23 18:14 Blood Pressure 163/96 10/25/23 18:14 Pulse Oximetry 98 10/25/23 18:14 Oxygen Delivery Me thod Room Air 10/25/23 18:14 MDM - Extremity (Nontraumatic) Medical Decision Making 58yo female here with family for evaluation of nontraumatic left shoulder pain that she woke up with yesterday morning. Reports increased pain with any abduction, but is able to slightly flex and extend the left shoulder with no pain. She has been using [id number] extra strength Tylenol without improvement. [id number]. Denies fall, trauma, known injury, previous injury, fever, chills, body aches, any other concern at this time. Patient is nontoxic in appearance. Vital signs are stable. Differential dx include but are not limited to: Fracture, subluxation, sprain, rotator cuff injury No acute abnormalities were noted on the left shoulder x-ray today. Discussed these findings with patient. Patient was evaluated approximately 30 minutes after medication administration and reported that the pain had eased some. Discussed with patient that the medication would continue to work and it has just started helping with her pain. Advised patient that we do not have any bony injury and no apparent joint space abnormalities. Advised that we would proceed with a sling to use for the next 1 to 2 days, medications to help with the discomfort, and follow-up with her doctor later this week for recheck. Discussed importance of moving the arm, even a little at a time. Recommend she return to the emergency department if any rapid worsening symptoms, onset of fever associated with worsening, and as needed. Patient and family state understanding and have no further questions or concerns at this time. Medical Records I reviewed the patient's medical records. XR interpretation done by ED provider, pending radiology final review ED provider radiology interpretation(s): No acute bony abnormalities noted Discharge Plan Discharge Patient Disposition: Home Clinical Impression: Acute pain of left shoulder Condition: Stable Prescriptions: New ketorolac 10 mg tablet 10 mg PO Q8H PRN (Reason: pain) 5 Days Qty: 20 0RF tizanidine 2 mg tablet 2 mg PO Q8H PRN (Reason: muscle spasticity) Qty: 20 0RF No Action albuterol sulfate [Ventolin HFA] 90 mcg/actuation HFA aerosol inhaler 1 inh INHALATION QID PRN (Reason: shortness of breath or wheezing) Qty: 6.7 1RF famotidine [Pepcid] 40 mg tablet 40 mg PO DAILY Qty: 30 5RF gabapentin 800 mg tablet 800 mg PO TID Qty: 90 5RF metoprolol succinate 25 mg tablet extended release 24 hr 25 mg PO .at night Qty: 30 5RF prednisone 2.5 mg tablet 2.5 mg PO DAILY@08 Qty: 30 5RF tizanidine 2 mg tablet 2 mg PO Q12H Qty: 60 5RF lidocaine 5 % ointment See Rx Instructions .ROUTE .COMPLEX Qty: 35.44 2RF Dose Instruction: APPLY TOPICALLY THREE TIMES DAILY NEEDED FOR PAIN TO NECK AND HANDS Rx Instructions: APPLY TOPICALLY THREE TIMES DAILY NEEDED FOR PAIN TO NECK AND HANDS Discharge Orders: Discharge ED (Routine); Ordered 10/25/23 Ordered By: Paul Dumont Referrals: Destin Manzano, SOPHIA [Primary Care Provider] - Discharge Diet: Usual diet Discharge Activity: Increase activity as tolerated Patient Instructions: Shoulder Pain (ED), Rotator Cuff Injury Exercises (DC) Activity Restrictions/Additional Instructions: Use the provided sling for 1 to 2 days to support the left shoulder Ketorolac has been sent to your pharmacy to help with inflammation. Increase tizanidine to 3 times a day as needed for discomfort See provided handout with range of motion exercises that you can begin in 2 to 3 days to help with the discomfort Try to avoid heavy lifting for the next several days Follow-up with your doctor, call in the next few days with an update of symptoms and to discuss a recheck Return to the emergency department if any rapid worsening symptoms and as needed Coding Level of Care Code ED Vp Software Support for Celine Tompkins
[2023-10-25] MEDS: tizanidine 4 mg Tablet 2 MG PO (19:34)
[2023-10-25] MEDS: ketorolac 30 mg/mL INJ 15 MG IM (19:35)
[2023-10-25 20:16] VITALS: PULSE 80; RESP 16; O2SAT 96
== END 2023-10-25 20:17 | disposition home or self-care (01) ==
PROVIDERS: Emergency Provider Nurse Practitioner; PCP Nurse Practitioner
DX: M25.512 Pain in left shoulder (principal); Z87.891 Personal history of nicotine dependence; Z85.528 Personal history of other malignant neoplasm of kidney
CPT/HCPCS: 73030; 96372; 99284; J1885

== ENCOUNTER → 2023-11-23 15:33 | Outpatient (BNVA) | payer MEDICAID, SELFPAY | PROVIDERS: PCP Nurse Practitioner; Visit Provider Nurse Practitioner | DX: M05.79 Rheumatoid arthritis with rheumatoid factor of multiple sites without organ or systems involvement (principal) | CPT/HCPCS: 80053; 85025; 85651; 86140 ==

== ENCOUNTER → 2024-02-28 09:50 | Outpatient (BNVA) | payer MEDICAID, SELFPAY | PROVIDERS: PCP Nurse Practitioner; Visit Provider Nurse Practitioner | DX: M05.79 Rheumatoid arthritis with rheumatoid factor of multiple sites without organ or systems involvement (principal); R00.2 Palpitations; E55.9 Vitamin D deficiency, unspecified | CPT/HCPCS: 80053; 82306; 84443; 85025; 85651; 86140 ==

== ENCOUNTER → 2024-04-25 09:37 | Outpatient (BNVA) | payer MEDICAID, SELFPAY | PROVIDERS: PCP Nurse Practitioner; Visit Provider Nurse Practitioner Family | DX: M19.041 Primary osteoarthritis, right hand (principal); M06.9 Rheumatoid arthritis, unspecified; R22.31 Localized swelling, mass and lump, right upper limb | CPT/HCPCS: 73110 ==

== ENCOUNTER → 2024-05-15 09:04 | Outpatient (BNVA) | payer MEDICAID, SELFPAY | PROVIDERS: PCP Nurse Practitioner; Visit Provider Nurse Practitioner | DX: E78.2 Mixed hyperlipidemia (principal); E55.9 Vitamin D deficiency, unspecified | CPT/HCPCS: 80053; 82306; 85025; 85651; 86140 ==

== ENCOUNTER 2024-05-30 14:44 | Outpatient (CLI) | payer MEDICAID, SELFPAY ==
--- NOTE | 2024-05-30 14:46 | CT_ITS ---
WS: [id number] CT ABDOMEN AND PELVIS NONCONTRAST HISTORY: PERSONAL HX OF OTHER MALIGNANT NEOPLASM-RENAL CA TECHNIQUE: Imaging performed through the abdomen and pelvis. Coronal and sagittal reformats are submi tted. All CT scans at [facility] use at least one of these dose optimization techniques: auto mated exposure control; mA and/or kV adjustment per patient size (includes targeted exams where dose is matched to clinical indication); or iterative reconstruction. DLP: 350.57 mGy.cm COMPARISON: 11/05/2020 Lower thorax: Lung bases are clear. Visualized heart is normal. No hiatal hernia. Liver: Liver is slightly enlarged. There may be a Gwendolyn's lobe as the liver extends over the iliac c rest. Multiple scattered low-attenuation masses are reidentified. These have been previously describe d consistent with cysts. The largest is 4.0 x 3.8 cm in the superior liver towards the diaphragm. No bile duct dilatation. Gallbladder: Contracted gallbladder with stones. No adjacent inflammation. Pancreas: Similar configuration as the prior exam. Spleen: Normal. Adrenal glands: Normal. No mass. Right kidney: RIGHT kidney is slightly enlarged measuring 12.1 cm in length. This may be compensatory hypertrophy as there is an absent LEFT kidney. There is no perinephric stranding. Cortical scar with calcification in the superior pole. The kidney appears larger than on 11/05/2020 but without contrast cannot further characterize. No definite mass is identified although there is cortical thickening. No hydronephrosis. Benign nonobstructing calcifications. Left kidney: Absent. Prior nephrectomy. Aorta: Moderate to severe atherosclerosis abdominal aorta. No aneurysm. Atherosclerosis continues int o the common iliac arteries. No free fluid, intraperitoneal air or significant lymphadenopathy. GI tract: Nondistended stomach. No small bowel obstruction. Normal appendix. Mild diffuse constipatio n. Mild diverticular disease. No acute diverticulitis or colitis. Abdominal wall: Negative. No hernia. Pelvis: No free fluid. Uterus and ovaries are both noted and present. Urinary bladder is well distend ed. Osseous structures: Increased sclerosis superior RIGHT humeral head may indicate developing osteonecr osis. CT/CT abdomen pelvis wo con [id number] IMPRESSION: 1. Status post LEFT nephrectomy. No recurrent mass at the renal bed. 2. RIGHT kidney is slightly enlarged as compared to the prior study which may be compensatory hypertrophy. There is focal scarring with calcification. The co rtex appears thickened but there is no discrete mass or perinephric stranding o r obstruction identified. 3. Cholelithiasis without acute cholecystitis. 4. Numerous low-attenuation masses within the liver. Noted to be cysts on the prior CT with contrast from 11/05/2020.
== END 2024-05-30 14:45 | disposition home or self-care (01) ==
LOC: RAD 14:44
PROVIDERS: PCP Nurse Practitioner; Visit Provider Nurse Practitioner
DX: Z85.528 Personal history of other malignant neoplasm of kidney (principal); Q44.6 Cystic disease of liver; N20.0 Calculus of kidney; Z90.5 Acquired absence of kidney; K80.20 Calculus of gallbladder without cholecystitis without obstruction
CPT/HCPCS: 74176; 80053; 82306; 85025; 85651; 86140

== ENCOUNTER 2024-06-08 07:50 | Emergency (ER) | payer MEDICAID, SELFPAY ==
[2024-06-08 07:57] VITALS: BP 139/90; PULSE 73; RESP 16; TEMP 36.9; O2SAT 98; BMI 26.5
[2024-06-08 08:19] LABS: Basophils # 0.1 10^3/uL (0.0-0.1); Basophils % 0.3 %; Eosinophils # 0.1 10^3/uL (0.0-0.8); Eosinophils % 0.3 %; Hematocrit 40.1 % (36-47); Lymphocytes # 1.6 10^3/uL (0.8-4.8); Lymphocytes % 10.6 %; Mean Corpuscular HGB Conc 30.9 g/dL (30-55); Mean Corpuscular Hemoglobin 26.4 pg (27-33); Mean Corpuscular Volume 85.3 fl (85-98); Mean Platelet Volume 8.8 fL (7.4-10.4); Monocytes % 6.4 %; Neutrophils # 12.31 10^3/uL (1.8-7.7); Neutrophils % 80.9 %; Nucleated Red Blood Cells % 0 %; Platelet Count 362 10^3/cmm (157-399); Red Cell Distribution Width 14.9 % (12.1-15.1); White Blood Count 15.23 10^3/uL (3.29-11.43)
[2024-06-08 08:39] LABS: Alanine Aminotransferase 17 U/L (0-33); Albumin Level 3.7 g/dL (3.5-5.2); Alkaline Phosphatase 82 U/L (35-105); Anion Gap 17.8 (5-19); Aspartate Amino Transferase 21 U/L (0-32); Blood Urea Nitrogen 9 mg/dL (8-23); Calcium 8.5 mg/dL (8.5-10.5); Carbon Dioxide 24 mmol/L (22-29); Chloride 102 mmol/L (98-107); Creatinine Clr Calc Pharmacy 61.5522; Globulin 3.3 g/dL (1.3-4.6); Glomerular Filtration Rate 63.9 mL/min (90-130); Glucose 162 mg/dL (65-115); Osmolality Calculated 292 mOsm/kg (285-295); Potassium 3.8 mmol/L (3.5-5.1); Sodium 140 mmol/L (136-145); Total Bilirubin 0.3 mg/dL (0.15-1.2)
[2024-06-08 08:45] LABS: Bilirubin Urine Negative (Negative); Blood Urine 1+ (Negative); Glucose Urine UA Negative (Normal); Ketones Urine Negative (Negative); Leukocyte Esterase Urine Negative (Negative); Nitrate Urine Negative (Negative); Protein Urine Negative (Negative); Specific Gravity, Urine 1.005 (1.005-1.030); Urine Appearance Clear (CLEAR); Urine Color Yellow (Yellow); Urobilinogen Urine 0.2 mg/dL (Negative); pH Urine 6.5 (5-7)
[2024-06-08 08:47] VITALS: BP 130/87; PULSE 106; RESP 16; O2SAT 96
[2024-06-08 08:47] LABS: Add Urine Microscopic? YES; Bacteria Urine None Seen /hpf; Hyaline Casts Urine 0-4 /lpf; RBC Urine 0-2 /hpf (0-2); Squamous Epithelial Cell Urine 0-5 /hpf (0-5); WBC Urine 0-5 /hpf (0-5)
--- NOTE | 2024-06-08 08:52 | ED_ITS ---
HPI - Back Pain/Injury 2 General: Chief Complaint: Back Pain/Injury Stated Complaint: body pains Time Seen by Provider: 06/08/24 07:54 History of Present Illness: 58-year-old female who presents to the e mergency room complaining of generalized bodyaches and pain joint pains. She states she hurts all over. She has a history of rheumatoid arthritis she was seeing To call if she tried several different medications according to his office notes she did not tolerate though had his last office note she was on 2 and half milligrams of prednisone daily. She and her primary care doctor recently and I started her on 10 mg daily said despite that she continues to have aches and pains she is also taking Tylenol with that she reports a low-grade fever at home. No fever on arrival here no chest pain or abdominal pain no dysuria urgency or frequency vomiting or diarrhea Associated symptoms: Deny abdominal pain, chills, dysuria, fever(s) or urinary urgency Related Data Previous Rx's Medication Instructions Recorded albuterol sulfate 90 mcg/actuation 1 inh inhalation QID PRN shortness 01/04/24 aerosol inhaler (Ventolin HFA) of breath or wheezing #6.7 grams cholecalciferol (vitamin D3) 50 50 mcg PO DAILY #30 caps 02/29/24 mcg (2,000 unit) capsule famotidine 40 mg tablet (Pepcid) 40 mg PO DAILY #30 tabs 05/15/24 gabapentin 800 mg tablet 800 mg PO TID #90 tabs 05/15/24 metoprolol succinate 25 mg 25 mg PO .at night #30 tabs 05/15/24 tablet,extended release 24 hr prednisone 10 mg tablet 10 mg PO DAILY@08 #30 tabs 05/15/24 tizanidine 2 mg tablet 2 mg PO Q12H #60 tabs 05/15/24 diclofenac sodium 75 mg 75 mg PO Q12H PRN pain #20 tabs 06/08/24 tablet,delayed release prednisone 20 mg tablet 20 mg PO TID #15 tabs 06/08/24 Allergies Allergy/AdvReac Type Severity Reaction Status Date / Time latex Allergy Mild Rash Verified 06/01/24 10:17 mepivacaine [From Carbocaine] Allergy rash, Verified 06/01/24 10:17 swelling methotrexate Allergy ADR-Diarrhe Verified 06/08/24 08:07 a Sulfa (Sulfonamide Allergy unknown Verified 06/01/24 10:17 Antibiotics) Review of Systems 2 Const: Denies: fever(s) or chills Card: Denies: chest pain Resp: Denies: dyspnea GI: Denies: abdominal pain : Denies: dysuria, urinary frequency or urinary urgency Musc: Reports: joint pain and joint swelling; Denies: neck pain or back pain Skin/Breast: Denies: rash PFSH ED 2 PFSH: Medical History Noncompliance with medication regimen Seropositive rheumatoid arthritis of multiple sites Palpitations Immunization counseling History of kidney cancer Single kidney S/p nephrectomy GERD (gastroesophageal reflux disease) Osteoporosis High risk medication use Rheumatoid arthritis with rheumatoid factor Current chronic use of systemic steroids Neoplasm of kidney Surgical History History of nephrectomy, left Due to renal cancer Hx of tonsillectomy Family History Mother Cancer Diabetes Hypertension CAD (coronary artery disease) Rheumatoid arthritis Father Hypertension CAD (coronary artery disease) Myocardial infarction Other Heart disease Lupus Denies family history of Chronic kidney disease (CKD) Systemic lupus erythematosus (SLE) in adult Stroke Social History Smoking and tobacco/nicotine status: former use of tobacco/nicotine Quit status (tobacco/nicotine): has quit using Second hand smoke exposure: No Alcohol intake: never Substance/Drug Use: never Adopted: No Caregiver/support person: No Lives independently: Yes Household members: spouse Housing: House Marital status: Number of children: 3 service: No Current occupational status: unemployed Pets and animals: Yes Pets & animals: dog(s) Do you think of yourself as: Straight/Heterosexual Current gender identity: Female Physical Exam 2 Const: GENERAL APPEARANCE: cooperative ORIENTATION/CONSCIOUSNESS: Yes awake, Yes oriented to person, Yes oriented to place and Yes oriented to time HENMT: COMMON NORMALS: normocephalic, atraumatic and hearing grossly normal bilaterally HEAD & SCALP: normocephalic and atraumatic Resp: COMMON NORMALS: normal respiratory effort, No retractions, No use of accessory muscles and clear to auscultation bilaterally AUSCULTATION: clear to auscultation bilaterally Cardio: COMMON NORMALS: regular rate, regular rhythm and No murmurs present (Cardio) RATE: regular rate RHYTHM: regular rhythm GI: COMMON NORMALS: Soft to palpation and No hepatosplenomegaly present A USCULTATION: Yes normoactive bowel sounds PALPATION: Yes Soft to palpation, No Tenderness to palpation present (GI), No Guarding due to palpation present (GI) and Yes No hepatosplenomegaly present Extremity: COMMON NORMALS: normal to inspection, capillary refill normal, no clubbing, cyanosis or edema, no calf tenderness and no pedal edema OTHER: Check effusions and interphalangeal joints the MP joints of the carpal joints wrist and elbow. Pain at the elbow with flexion extension as well. No redness no erythema no induration no skin abrasion breakdown ulceration or laceration Neuro: SENSORIUM/ORIENTATION: Yes oriented to person, Yes oriented to place and Yes oriented to time Skin: COMMON NORMALS: no rashes or lesions noted GENERAL SKIN EXAM: no rashes or lesions noted Course 2 Vital Signs: Vital signs: Vital Signs Temperature 98.4 F 06/08/24 07:57 Pulse Rate 71 06/08/24 11:19 Respiratory Rate 16 06/08/24 10:46 Blood Pressure 141/92 06/08/24 11:19 Pulse Oximetry 96 06/08/24 11:19 Oxygen Delivery Me thod Room Air 06/08/24 10:46 MDM - Back Pain/Injury Medical Decision Making Patient has known rheumatoid. Recent flareup sed rate mildly elevated white count elevated I believe that secondary to the steroid she is already on we will put her on a higher dose of steroids and taper then back down to 10 mg daily have her follow-up with her primary care doctor also use diclofenac as needed return if has further problems Labs 06/08/24 08:04 06/08/24 08:04 Laboratory Results WBC 15.23 10^3/uL (3.29-11.43) H 06/08/24 08:04 RBC 4.70 10^6/uL (3.85-5.65) 06/08/24 08:04 Hgb 12.40 g/dL (11.27-16.99) 06/08/24 08:04 Hct 40.1 % (36-47) 06/08/24 08:04 MCV 85.3 fl (85-98) 06/08/24 08:04 MCH 26.4 pg (27-33) L 06/08/24 08:04 MCHC 30.9 g/dL (30-55) 06/08/24 08:04 RDW 14.9 % (12.1-15.1) 06/08/24 08:04 Plt Count 362 10^3/cmm (157-399) 06/08/24 08:04 MPV 8.8 fL (7.4-10.4) 06/08/24 08:04 Neut % (Auto) 80.9 % 06/08/24 08:04 Lymph % (Auto) 10.6 % 06/08/24 08:04 Garland % (Auto) 6.4 % 06/08/24 08:04 Eos % (Auto) 0.3 % 06/08/24 08:04 Baso % (Auto) 0.3 % 06/08/24 08:04 Neut # (Auto) 12.31 10^3/uL (1.8-7.7) H 06/08/24 08:04 Lymph # (Auto) 1.6 10^3/uL (0.8-4.8) 06/08/24 08:04 Garland # (Auto) 1.0 10^3/uL (0.2-0.9) H 06/08/24 08:04 Eos # (Auto) 0.1 10^3/uL (0.0-0.8) 06/08/24 08:04 Baso # (Auto) 0.1 10^3/uL (0.0-0.1) 06/08/24 08:04 Nucleated RBC % (auto) 0 % 06/08/24 08:04 Nucleated RBCs # 0.0 /100WBC 06/08/24 08:04 ESR 59 mm/hr (0-15) H 06/08/24 08:04 Sodium 140 mmol/L (136-145) 06/08/24 08:04 Potassium 3.8 mmol/L (3.5-5.1) 06/08/24 08:04 Chloride 102 mmol/L (98-107) 06/08/24 08:04 Carbon Dioxide 24 mmol/L (22-29) 06/08/24 08:04 Anion Gap 17.8 (5-19) 06/08/24 08:04 BUN 9 mg/dL (8-23) 06/08/24 08:04 Creatinine 0.9 mg/dL (0.5-0.9) 06/08/24 08:04 GFR Calculation 63.9 mL/min (90-130) L 06/08/24 08:04 Glucose 162 mg/dL (65-115) H 06/08/24 08:04 Calculated Osmolality 292 mOsm/kg (285-295) 06/08/24 08:04 Calcium 8.5 mg/dL (8.5-10.5) 06/08/24 08:04 Total Bilirubin 0.3 mg/dL (0.15-1.2) 06/08/24 08:04 AST 21 U/L (0-32) 06/08/24 08:04 ALT 17 U/L (0-33) 06/08/24 08:04 Alkaline Phosphatase 82 U/L (35-105) 06/08/24 08:04 C-Reactive Protein 66.0 mg/L (0.0-4.9) H 06/08/24 08:04 Total Protein 7.0 g/dL (6.6-8.7) 06/08/24 08:04 Albumin 3.7 g/dL (3.5-5.2) 06/08/24 08:04 Globulin 3.3 g/dL (1.3-4.6) 06/08/24 08:04 Urine Color Yellow (Yellow) 06/08/24 08:10 Urine Appearance Clear (CLEAR) 06/08/24 08:10 Urine pH 6.5 (5-7) 06/08/24 08:10 Ur Specific Pinon 1.005 (1.005-1.030) 06/08/24 08:10 Urine Protein Negative (Negative) 06/08/24 08:10 Urine Glucose (UA) Negative (Normal) 06/08/24 08:10 Urine Ketones Negative (Negative) 06/08/24 08:10 Urine Blood 1+ (Negative) A 06/08/24 08:10 Urine Nitrate Negative (Negative) 06/08/24 08:10 Urine Bilirubin Negative (Negative) 06/08/24 08:10 Urine Urobilinogen 0.2 mg/dL (Negative) 06/08/24 08:10 Ur Leukocyte Esterase Negative (Negative) 06/08/24 08:10 Urine RBC 0-2 /hpf (0-2) 06/08/24 08:10 Urine WBC 0-5 /hpf (0-5) 06/08/24 08:10 Ur Squamous Epith Cells 0-5 /hpf (0-5) 06/08/24 08:10 Amorphous Sediment Not Reportable 06/08/24 08:10 Urine Bacteria None seen /hpf (NONE) 06/08/24 08:10 Hyaline Casts 0-4 /lpf H 06/08/24 08:10 No radiology studies performed this visit Discharge Plan Discharge Patient Disposition: Home Clinical Impression: Seropositive rheumatoid arthritis of multiple sites Condition: Stable Prescriptions: New prednisone 20 mg tablet 20 mg PO TID Qty: 15 0RF Rx Instructions: 1 p.o. 3 times daily x3 days, 1 p.o. twice daily x2 days, 1 p.o. daily x2 days diclofenac sodium 75 mg tablet,delayed release (DR/EC) 75 mg PO Q12H PRN (Reason: pain) Qty: 20 0RF No Action albuterol sulfate [Ventolin HFA] 90 mcg/actuation HFA aerosol inhaler 1 inh INHALATION QID PRN (Reason: shortness of breath or wheezing) Qty: 6.7 1RF cholecalciferol (vitamin D3) 50 mcg (2,000 unit) capsule 50 mcg PO DAILY Qty: 30 2RF prednisone 10 mg tablet 10 mg PO DAILY@08 Qty: 30 2RF tizanidine 2 mg tablet 2 mg PO Q12H Qty: 60 5RF metoprolol succinate 25 mg tablet extended release 24 hr 25 mg PO .at night Qty: 30 5RF gabapentin 800 mg tablet 800 mg PO TID Qty: 90 5RF famotidine [Pepcid] 40 mg tablet 40 mg PO DAILY Qty: 30 5RF Discharge Orders: Discharge ED (Routine); Ordered 06/08/24 Ordered By: Royer Hernadez Referrals: Destin Manzano, [employer] [Primary Care Provider] - Discharge Diet: Usual diet Discharge Activity: Increase activity as tolerated Patient Instructions: Opioid Safety, Pain Management Activity Restrictions/Additional Instructions: Thank you for choosing [facility] for your healthcare needs today. It is very important that you follow up as instructed or that you return to the Emergency Department should you have concerns or if your condition changes or worsens in any way. You were seen today for complaints of generalized aches and pains in joints. Laboratory test showed a mild elevation in your white count which is likely due to the steroid you are currently taking. Sed rate is also elevated at the believe this is due to your rheumatoid arthritis. Strongly recommend you follow-up with rheumatology as soon as you are able. For your immediate symptoms you were given a prednisone burst and taper recommend holding the prednisone you were previously given use of prednisone taper given today when you reach the end of the taper resume the 10 mg daily of prednisone. Additionally he can use diclofenac 1 every 12 hours as needed. Coding Level of Care Code ED Aerodynamics Teacher for Celine Tompkins
[2024-06-08 09:14] LABS: Add Urine Culture? No
[2024-06-08 09:27] LABS: Erythrocyte Sedimentation Rate 59 mm/hr (0-15)
[2024-06-08 10:09] VITALS: BP 130/75; PULSE 64; RESP 16; O2SAT 98
[2024-06-08 10:46] VITALS: BP 153/91; PULSE 69; RESP 16; O2SAT 96
[2024-06-08] MEDS: dexamethasone 10 mg/mL INJ IVP (10:47)
[2024-06-08 11:19] VITALS: BP 141/92; PULSE 71; O2SAT 96
== END 2024-06-08 11:22 | disposition home or self-care (01) ==
PROVIDERS: Emergency Provider Family Medicine; PCP Nurse Practitioner
DX: M05.9 Rheumatoid arthritis with rheumatoid factor, unspecified (principal); Z87.891 Personal history of nicotine dependence; Z85.528 Personal history of other malignant neoplasm of kidney; Z79.52 Long term (current) use of systemic steroids
CPT/HCPCS: 36415; 80053; 81001; 85025; 85651; 86140; 96374; 99284; J1100

== ENCOUNTER → 2024-06-29 13:32 | Outpatient (BNVA) | payer MEDICAID, SELFPAY | PROVIDERS: PCP Nurse Practitioner; Visit Provider Nurse Practitioner | DX: M05.79 Rheumatoid arthritis with rheumatoid factor of multiple sites without organ or systems involvement (principal); Q25.46 Tortuous aortic arch; I70.90 Unspecified atherosclerosis; J98.4 Other disorders of lung | CPT/HCPCS: 71046 ==

== ENCOUNTER 2024-06-30 12:45 | Outpatient (CLI) | payer MEDICAID, SELFPAY ==
[2024-06-30 13:26] LABS: Basophils # 0.1 10^3/uL (0.0-0.1); Basophils % 0.5 %; Eosinophils % 0.2 %; Hematocrit 38.3 % (36-47); Lymphocytes # 1.6 10^3/uL (0.8-4.8); Lymphocytes % 15.4 %; Mean Corpuscular HGB Conc 30.3 g/dL (30-55); Mean Corpuscular Hemoglobin 26.3 pg (27-33); Mean Corpuscular Volume 86.8 fl (85-98); Mean Platelet Volume 9.2 fL (7.4-10.4); Monocytes # 0.8 10^3/uL (0.2-0.9); Monocytes % 7.9 %; Neutrophils # 7.62 10^3/uL (1.8-7.7); Neutrophils % 74.7 %; Nucleated Red Blood Cells % 0 %; Platelet Count 360 10^3/cmm (157-399); Red Blood Count 4.41 10^6/uL (3.85-5.65); Red Cell Distribution Width 14.7 % (12.1-15.1); White Blood Count 10.19 10^3/uL (3.29-11.43)
--- NOTE | 2024-06-30 13:30 | USCV_ITS ---
Noemi Quick Age: 58 Gender: F : 1965 Exam Date: 06/30/2024 13:32 Ordering Phys: Destin Manzano Technologist: Dustin Moseley Exam Location: [facility] [place] Indication: athersclerosis BP: 120 / 80 HR: 58 Rhythm: Sinus Technical Quality: Adequate MEASUREMENTS (Male / Female) Normal Values 2D ECHO LV Diastolic Diameter PLAX 4.7 cm 4.2 - 5.9 / 3.9 - 5.3 cm IVS Diastolic Thickness 1.3 cm 0.6 - 1.0 / 0.6 - 0.9 cm IVS Systolic Thickness 1.7 cm LVPW Diastolic Thickness 1.7 cm 0.6 - 1.0 / 0.6 - 0.9 cm LVPW Systolic Thickness 2.1 cm LVOT Diameter 2.0 cm LV Ejection Fraction 2D Teich 71.6 % LV Ejection Fraction MOD 4C 65.0 % LV Ejection Fraction MOD 2C 63.3 % LV Ejection Fraction 2C AL 63.3 % LA Diameter 3.1 cm RA Systolic Volume 4C AL 31.7 ml RA Systolic Volume 4C MOD 31.7 ml LA Sys Volume AL 34.6 cm cubed LA Sys Volume Index AL 19.1 cm cubed/m squared Aorta at Sinotubular Diameter 2.5 cm IVC Diameter 1.7 cm M-MODE LA Ao Ratio MM 1.4 AV Cusp Separation MM 1.8 cm DOPPLER AV Peak Velocity 116.3 cm/s LVOT Peak Velocity 101.0 cm/s AV Area Cont Eq vti 2.3 cm squared AV Area Cont Eq pk 2.8 cm squared MV Area PHT 4.7 cm squared Mitral E to A Ratio 1.3 TV Peak Velocity 267.3 cm/s TR Peak Velocity 371.0 cm/s TR Peak Gradient 55.1 mmHg TR Mean Velocity 286.0 cm/s TR Mean Gradient 35.7 mmHg TR Velocity Time Integral 115.4 cm PV Peak Velocity 87.0 cm/s RV Ejection Time 0.4 s FINDINGS Left Ventricle Normal left ventricular size, systolic function and wall thickness, with no regional wall motion abnormalities. Estimated LVEF normal 65%. Right Ventricle Normal right ventricular size and systolic function. Right Atrium Normal right atrial size. Left Atrium Normal left atrial size. Mitral Valve Structurally normal mitral valve. Mild mitral valve regurgitation. Aortic Valve Structurally normal trileaflet aortic valve. No aortic valve stenosis. Tricuspid Valve Structurally normal tricuspid valve. Mild tricuspid valve regurgitation. Pulmonic Valve Structurally normal pulmonic valve. Trace pulmonary valve regurgitation. Pericardium No pericardial effusion. Aorta Normal size aortic root and proximal ascending aorta. IVC Normal inferior vena cava. CONCLUSIONS Normal LV systolic function. LVEF normal 65%. Normal chamber sizes. Mild mitral and tricuspid regurgitation. Right heart and pulmonary pressure could not be assessed accurately. However pulmonary artery systolic pressure appears to be normal. Toan Tom MD (Electronically Signed) Final Date: 30 June 2024 15:48 S
[2024-06-30 13:50] LABS: HIV 1 & 2 Antibody Non-Reactive (Non-Reactiv); HIV 1 & 2 Antigen Non-Reactive (Non-Reactiv)
[2024-06-30 14:14] LABS: Hepatitis A Antibody IgM Non-Reactive (Nonreactive); Hepatitis B Core AB, Total Non-Reactive (Nonreactive); Hepatitis B Surface AB < 3.5 (11.5-1000); Hepatitis B Surface Antigen Non-Reactive (Nonreactive); Hepatitis C Virus Antibody Non-Reactive (Nonreactive)
== END 2024-06-30 12:46 | disposition home or self-care (01) ==
LOC: RAD 12:46
PROVIDERS: PCP Nurse Practitioner; Visit Provider Nurse Practitioner
DX: I70.90 Unspecified atherosclerosis (principal); R00.2 Palpitations; M05.79 Rheumatoid arthritis with rheumatoid factor of multiple sites without organ or systems involvement; Z11.59 Encounter for screening for other viral diseases; Z11.4 Encounter for screening for human immunodeficiency virus [HIV]
CPT/HCPCS: 36415; 85025; 86480; 86705; 86706; 86709; 86803; 87340; 87806; 93306

== ENCOUNTER 2024-07-26 13:13 | Outpatient (CLI) | payer MEDICAID, SELFPAY ==
--- NOTE | 2024-07-26 15:45 | USCV_ITS ---
Noemi Quick Age: 58 Gender: F : 1965 Exam Date: 07/26/2024 13:28 Ordering Phys: Destin Manzano Technologist: [place] [facility] [place]: lt leg pain and swelling PROCEDURES: Venous duplex imaging was performed in only the left lower extremity. The following venous structures were evaluated: common femoral vein, profunda vein, proximal portion of the greater saphenous vein, superficial femoral vein, and the popliteal vein. In addition, the posterior tibial and peroneal trunk were evaluated. FINDINGS: Normal 2-D Doppler and augmentation and compressibility throughout the lower extremity venous structures. Additional imaging through the proximal calf veins also reveals no thrombus. Limited evaluation of the greater saphenous vein is patent with no thrombus. CONCLUSIONS No evidence of left lower extremity DVT. Left popliteal cyst 4.5 x 1.4 x 2.3cm Kayden Yanez MD (Electronically Signed) Final Date: 26 July 2024 15:53 S
== END 2024-07-26 13:14 | disposition home or self-care (01) ==
LOC: RAD 13:14
PROVIDERS: PCP Nurse Practitioner; Visit Provider Nurse Practitioner
DX: M71.22 Synovial cyst of popliteal space [Baker], left knee (principal)
CPT/HCPCS: 93971

== ENCOUNTER 2024-10-09 09:02 | Emergency (ER) | payer MEDICAID, SELFPAY ==
[2024-10-09 09:04] VITALS: BP 155/98; PULSE 98; RESP 17; O2SAT 96; BMI 25.7
--- NOTE | 2024-10-09 09:05 | XR_ITS ---
WS: [id number] XR chest 1V portable [id number] REASON FOR EXAM: dyspnea/cough FINDINGS: Mild tortuosity and ectasia of the thoracic aorta. Normal heart size. Calcified granulomas disease in both hemithoraces. No acute pulmonary parenchymal or pleural abnormality. Moderate degenerative spondylosis in the thoracic spine. Chest is unchanged compared to 06/29/2024. XR/XR chest 1V portable [id number] IMPRESSION: Stable chest without acute abnormality.
--- NOTE | 2024-10-09 09:05 | ECG_ITS ---
[facility] Test Date: 2024-10-09 Pat Name: Noemi Quick Department: Room: Gender: Female Sales Support Coordinator: : 1965 Requested By: Royer Nice Order Number: [id number] Austin MD: Deon Davis M.D. Measurements Intervals [place] Rate: 92 P: 73 OR: 159 QRS: 67 QRSD: 86 T: 52 QT: 344 QTc: 427 Interpretive Statements SINUS RHYTHM POSSIBLE ANTERIOR MYOCARDIAL INFARCTION , OF INDETERMINATE AGE [30 ms Q WAVE IN V3/V4, OR R < 0.2 mV IN V4] Compared to ECG 10/21/2020 14:05:20 Myocardial infarct finding now present Electronically Signed On 10-11-2024 17:21:41 SIGNALS INTELLIGENCE ANALYSIS MANAGER by Deon Davis M.D. [email or web address]
--- NOTE | 2024-10-09 09:19 | ED_ITS ---
HPI - Weakness 2 General: Chief complaint: Weakness Stated complaint: weakness Time Seen by Provider: 10/09/24 09:05 History of Present Illness: 59-year-old female who presents to the e mergency room with complaints of generalized weakness nausea diarrhea. Her symptoms initially began Wednesday. No hematochezia or melena. Patient has a history of a solitary kidney previously had a nephrectomy for colon cancer. She received a liter of fluids and route from the EMS service. She denies any dysuria urgency or frequency or hematuria. Generalized myalgias and headache. Associated symptoms: Denies chest pain, chills, dysuria or fever(s) Review of Systems 2 Const: Denies: fever(s) or chills Card: Denies: chest pain Resp: Denies: dyspnea GI: Denies: abdominal pain : Denies: dysuria, urinary frequency or urinary urgency Musc: Denies: neck pain or back pain Skin/Breast: Denies: rash PFSH ED 2 PFSH: Medical History Noncompliance with medication regimen Seropositive rheumatoid arthritis of multiple sites Palpitations Immunization counseling History of kidney cancer Single kidney S/p nephrectomy GERD (gastroesophageal reflux disease) Osteoporosis High risk medication use Rheumatoid arthritis with rheumatoid factor Current chronic use of systemic steroids Neoplasm of kidney Surgical History History of nephrectomy, left Due to renal cancer Hx of tonsillectomy Family History Mother Cancer Diabetes Hypertension CAD (coronary artery disease) Rheumatoid arthritis Father Hypertension CAD (coronary artery disease) Myocardial infarction Other Heart disease Lupus Denies family history of Chronic kidney disease (CKD) Systemic lupus erythematosus (SLE) in adult Stroke Social History Smoking and tobacco/nicotine status: former use of tobacco/nicotine Quit status (tobacco/nicotine): has quit using Second hand smoke exposure: No Alcohol intake: never Substance/Drug Use: never Adopted: No Caregiver/support person: No Lives independently: Yes Household members: spouse Housing: House Marital status: Number of children: 3 service: No Current occupational status: unemployed Pets and animals: Yes Pets & animals: dog(s) Do you think of yourself as: Straight/Heterosexual Current gender identity: Female Physical Exam 2 Const: GENERAL APPEARANCE: cooperative ORIENTATION/CONSCIOUSNESS: Yes awake, Yes oriented to person, Yes oriented to place and Yes oriented to time HENMT: COMMON NORMALS: normocephalic, atraumatic and hearing grossly normal bilaterally HEAD & SCALP: normocephalic and atraumatic Resp: COMMON NORMALS: normal respiratory effort, No retractions, No use of accessory muscles and clear to auscultation bilaterally AUSCULTATION: clear to auscultation bilaterally Cardio: COMMON NORMALS: regular rate, regular rhythm and No murmurs present (Cardio) RATE: regular rate RHYTHM: regular rhythm GI: COMMON NORMALS: Soft to palpation and No hepatosplenomegaly present A USCULTATION: Yes normoactive bowel sounds PALPATION: Yes Soft to palpation, No Tenderness to palpation present (GI), No Guarding due to palpation present (GI) and Yes No hepatosplenomegaly present Extremity: COMMON NORMALS: normal to inspection, capillary refill normal, no clubbing, cyanosis or edema, no calf tenderness and no pedal edema Neuro: SENSORIUM/ORIENTATION: Yes oriented to person, Yes oriented to place and Yes oriented to time Skin: COMMON NORMALS: no rashes or lesions noted GENERAL SKIN EXAM: no rashes or lesions noted Course 2 Vital Signs: Vital signs: Vital Signs Temperature 99.2 F 10/09/24 09:29 Pulse Rate 101 H 10/09/24 10:54 Respiratory Rate 17 10/09/24 09:04 Blood Pressure 125/87 10/09/24 10:54 Pulse Oximetry 96 10/09/24 10:54 Oxygen Delivery Me thod Room Air 10/09/24 09:04 MDM - Weakness Medical Decision Making Influenza A on lab testing today. Discharge home she is outside the window of opportunity for treatment with antivirals. Antiemetics as needed liquid diet advance as tolerated Medical Records I reviewed the patient's medical records. Lab Data I reviewed the patient's lab results. 10/09/24 09:43 10/09/24 09:43 Radiology Impressions Chest X-Ray 10/09/24 09:05 IMPRESSION: Stable chest without acute abnormality. Laboratory Results WBC 8.07 10^3/uL (3.29-11.43) 10/09/24 09:43 RBC 5.03 10^6/uL (3.85-5.65) 10/09/24 09:43 Hgb 13.70 g/dL (11.27-16.99) 10/09/24 09:43 Hct 44.2 % (36-47) 10/09/24 09:43 MCV 87.9 fl (85-98) 10/09/24 09:43 MCH 27.2 pg (27-33) 10/09/24 09:43 MCHC 31.0 g/dL (30-55) 10/09/24 09:43 RDW 17.6 % (12.1-15.1) H 10/09/24 09:43 Plt Count 183 10^3/cmm (157-399) 10/09/24 09:43 MPV 9.6 fL (7.4-10.4) 10/09/24 09:43 Neut % (Auto) 57.4 % 10/09/24 09:43 Lymph % (Auto) 30.6 % 10/09/24 09:43 [place] % (Auto) 8.1 % 10/09/24 09:43 Eos % (Auto) 0.0 % 10/09/24 09:43 Baso % (Auto) 0.4 % 10/09/24 09:43 Neut # (Auto) 4.64 10^3/uL (1.8-7.7) 10/09/24 09:43 Lymph # (Auto) 2.5 10^3/uL (0.8-4.8) 10/09/24 09:43 [place] # (Auto) 0.7 10^3/uL (0.2-0.9) 10/09/24 09:43 Eos # (Auto) 0.0 10^3/uL (0.0-0.8) 10/09/24 09:43 Baso # (Auto) 0.0 10^3/uL (0.0-0.1) 10/09/24 09:43 Nucleated RBC % (auto) 0 % 10/09/24 09:43 Nucleated RBCs # 0.0 /100WBC 10/09/24 09:43 Sodium 135 mmol/L (136-145) L 10/09/24 09:43 Potassium 3.2 mmol/L (3.5-5.1) L 10/09/24 09:43 Chloride 98 mmol/L (98-107) 10/09/24 09:43 Carbon Dioxide 22 mmol/L (22-29) 10/09/24 09:43 Anion Gap 18.2 (5-19) 10/09/24 09:43 BUN 6 mg/dL (8-23) L 10/09/24 09:43 Creatinine 1.0 mg/dL (0.5-0.9) H 10/09/24 09:43 GFR Calculation 56.4 mL/min (90-130) L 10/09/24 09:43 Glucose 86 mg/dL (65-115) 10/09/24 09:43 Calculated Osmolality 277 mOsm/kg (285-295) L 10/09/24 09:43 Calcium 7.8 mg/dL (8.5-10.5) L 10/09/24 09:43 Total Bilirubin 0.2 mg/dL (0.15-1.2) 10/09/24 09:43 AST 39 U/L (0-32) H 10/09/24 09:43 ALT 22 U/L (0-33) 10/09/24 09:43 Alkaline Phosphatase 50 U/L (35-105) 10/09/24 09:43 Total Protein 6.1 g/dL (6.6-8.7) L 10/09/24 09:43 Albumin 3.2 g/dL (3.5-5.2) L 10/09/24 09:43 Globulin 2.9 g/dL (1.3-4.6) 10/09/24 09:43 Urine Color Yellow (Yellow) 10/09/24 10:18 Urine Appearance Clear (CLEAR) 10/09/24 10:18 Urine pH 6.5 (5-7) 10/09/24 10:18 Ur Specific [place] 1.009 (1.005-1.030) 10/09/24 10:18 Urine Protein Negative (Negative) 10/09/24 10:18 Urine Glucose (UA) Negative (Normal) 10/09/24 10:18 Urine Ketones Trace (Negative) 10/09/24 10:18 Urine Blood 2+ (Negative) A 10/09/24 10:18 Urine Nitrate Negative (Negative) 10/09/24 10:18 Urine Bilirubin Negative (Negative) 10/09/24 10:18 Urine Urobilinogen 0.2 mg/dL (Negative) 10/09/24 10:18 Ur Leukocyte Esterase Negative (Negative) 10/09/24 10:18 Urine RBC 6-10 /hpf (0-2) 10/09/24 10:18 Urine WBC 0-5 /hpf (0-5) 10/09/24 10:18 Ur Squamous Epith Cells 0-5 /hpf (0-5) 10/09/24 10:18 Amorphous Sediment Not Reportable 10/09/24 10:18 Urine Bacteria None seen /hpf (NONE) 10/09/24 10:18 Hyaline Casts 0-4 /lpf H 10/09/24 10:18 Coronavirus (PCR) Negative (Negative) 10/09/24 09:29 Influenza A (PCR) Positive (Negative) 10/09/24 09:29 Influenza Type B (PCR) Negative (Negative) 10/09/24 09:29 RSV (PCR) Negative (Negative) 10/09/24 09:29 All radiology interpretation(s) finalized by discharge Discharge Plan Discharge Patient Disposition: Home Clinical Impression: Influenza A, Single kidney, Nausea & vomiting Condition: Stable Prescriptions: New ondansetron HCl 4 mg tablet 4 mg PO Q6H PRN (Reason: nausea and vomiting) Qty: 20 0RF No Action albuterol sulfate [Ventolin HFA] 90 mcg/actuation HFA aerosol inhaler 1 inh INHALATION QID PRN (Reason: shortness of breath or wheezing) Qty: 6.7 1RF gabapentin 800 mg tablet 800 mg PO TID Qty: 90 5RF famotidine [Pepcid] 40 mg tablet 40 mg PO DAILY Qty: 30 5RF cholecalciferol (vitamin D3) 50 mcg (2,000 unit) capsule 50 mcg PO DAILY Qty: 30 2RF prednisone 10 mg tablet 10 mg PO DAILY tizanidine 2 mg tablet 2 mg PO Q12H PRN (Reason: muscle spasms) metoprolol succinate 25 mg tablet extended release 24 hr 25 mg PO QPM Discharge Orders: Discharge ED (Routine); Ordered 10/09/24 Ordered By: Royer Hernadez Referrals: Destin Manzano, ASSISTANT PROFESSOR OF GERMAN-C [Primary Care Provider] - Discharge Diet: Full LIquid Discharge Activity: Increase activity as tolerated Patient Instructions: Influenza (ED), Opioid Safety, Pain Management Activity Restrictions/Additional Instructions: Thank you for choosing [facility] for your healthcare needs today. It is very important that you follow up as instructed or that you return to the Emergency Department should you have concerns or if your condition changes or worsens in any way. Print Language: Gabonese Coding Level of Care Code ED Loss Prevention Specialist for Chg Fwd Related Data Home Medications ?Medication ?Instructions ?Recorded ?Confirmed metoprolol succinate 25 mg 25 mg PO QPM 10/09/2410/09 tablet,extended release 24 hr prednisone 10 mg tablet 10 mg PO DAILY 10/09/2409/30 tizanidine 2 mg tablet 2 mg PO Q12H PRN muscle spas ms 10/09/24 10/09/24 Previous Rx's ?Medication ?Instructions ?Recorded albuterol sulfate 90 mcg/actuation 1 inh inhalation QI D PRN shortness 01/04/24 aerosol inhaler (Ventolin HFA) of breath or wheezing # 6.7 grams famotidine 40 mg tablet (Pepcid) 40 mg PO DAILY #30 ta bs 05/15/24 gabapentin 800 mg tablet 800 mg PO TID #90 tabs 05/15 cholecalciferol (vitamin D3) 50 50 mcg PO DAILY #30 ca ps 07/26/24 mcg (2,000 unit) capsule ondansetron HCl 4 mg tablet 4 mg PO Q6H PRN nausea and 10/09/24 vomiting #20 tabs Allergies Allergy/AdvReac Type Severity Reaction Status Date / Time latex Allergy Mild Rash Verified 07/31/24 10:16 mepivacaine (From Carbocaine) Allergy rash, Verified 07/31/24 10:16 swelling methotrexate Allergy ADR-Diarrhe Verified 07/31/24 10:16 a Sulfa (Sulfonamide Allergy unknown Verified 07/31/24 10:16 Antibiotics)
[2024-10-09 09:29] VITALS: TEMP 37.3
[2024-10-09 09:59] LABS: Basophils % 0.4 %; Hematocrit 44.2 % (36-47); Lymphocytes # 2.5 10^3/uL (0.8-4.8); Lymphocytes % 30.6 %; Mean Corpuscular Hemoglobin 27.2 pg (27-33); Mean Corpuscular Volume 87.9 fl (85-98); Mean Platelet Volume 9.6 fL (7.4-10.4); Monocytes # 0.7 10^3/uL (0.2-0.9); Monocytes % 8.1 %; Neutrophils # 4.64 10^3/uL (1.8-7.7); Neutrophils % 57.4 %; Nucleated Red Blood Cells % 0 %; Platelet Count 183 10^3/cmm (157-399); Red Blood Count 5.03 10^6/uL (3.85-5.65); Red Cell Distribution Width 17.6 % (12.1-15.1); White Blood Count 8.07 10^3/uL (3.29-11.43)
[2024-10-09 10:09] LABS: Covid PCR NEGATIVE (Negative); Influenza A POSITIVE (Negative); Influenza B NEGATIVE (Negative); Respiratory Syncytial Virus Ce NEGATIVE (Negative)
[2024-10-09 10:22] LABS: Alanine Aminotransferase 22 U/L (0-33); Albumin Level 3.2 g/dL (3.5-5.2); Alkaline Phosphatase 50 U/L (35-105); Anion Gap 18.2 (5-19); Aspartate Amino Transferase 39 U/L (0-32); Blood Urea Nitrogen 6 mg/dL (8-23); Calcium 7.8 mg/dL (8.5-10.5); Carbon Dioxide 22 mmol/L (22-29); Chloride 98 mmol/L (98-107); Creatinine Clr Calc Pharmacy 53.8584; Globulin 2.9 g/dL (1.3-4.6); Glomerular Filtration Rate 56.4 mL/min (90-130); Glucose 86 mg/dL (65-115); Osmolality Calculated 277 mOsm/kg (285-295); Potassium 3.2 mmol/L (3.5-5.1); Sodium 135 mmol/L (136-145); Total Bilirubin 0.2 mg/dL (0.15-1.2); Total Protein 6.1 g/dL (6.6-8.7)
[2024-10-09 10:25] LABS: Bilirubin Urine Negative (Negative); Blood Urine 2+ (Negative); Glucose Urine UA Negative (Normal); Ketones Urine Trace (Negative); Leukocyte Esterase Urine Negative (Negative); Nitrate Urine Negative (Negative); Protein Urine Negative (Negative); Specific Gravity, Urine 1.009 (1.005-1.030); Urine Appearance Clear (CLEAR); Urine Color Yellow (Yellow); Urobilinogen Urine 0.2 mg/dL (Negative); pH Urine 6.5 (5-7)
[2024-10-09 10:29] LABS: Add Urine Microscopic? YES; Bacteria Urine None Seen /hpf; Hyaline Casts Urine 0-4 /lpf; Squamous Epithelial Cell Urine 0-5 /hpf (0-5); WBC Urine 0-5 /hpf (0-5)
[2024-10-09 10:54] VITALS: BP 125/87; PULSE 101; O2SAT 96
== END 2024-10-09 10:57 | disposition home or self-care (01) ==
PROVIDERS: Emergency Provider Family Medicine; PCP Nurse Practitioner
DX: J10.1 Influenza due to other identified influenza virus with other respiratory manifestations (principal); R11.2 Nausea with vomiting, unspecified; Z90.5 Acquired absence of kidney; Z11.52 Encounter for screening for COVID-19; Z87.891 Personal history of nicotine dependence
CPT/HCPCS: 36415; 71045; 80053; 81001; 85025; 87637; 93005; 99285

== ENCOUNTER → 2024-10-16 14:09 | Outpatient (BNVA) | payer MEDICAID, SELFPAY | PROVIDERS: PCP Nurse Practitioner; Visit Provider Nurse Practitioner | DX: E87.1 Hypo-osmolality and hyponatremia (principal) | CPT/HCPCS: 80053 ==

== ENCOUNTER → 2024-11-13 11:44 | Outpatient (BNVA) | payer MEDICAID, SELFPAY | PROVIDERS: PCP Nurse Practitioner; Visit Provider Nurse Practitioner | DX: E04.1 Nontoxic single thyroid nodule (principal) | CPT/HCPCS: 80053; 84439; 84443; 84481 ==

== ENCOUNTER 2024-11-22 07:04 | Outpatient (CLI) | payer MEDICAID, SELFPAY ==
--- NOTE | 2024-11-22 07:00 | US_ITS ---
WS: [id number] RIGHT UPPER QUADRANT ULTRASOUND HISTORY: E04.1 - Nontoxic single thyroid nodule COMPARISON: None available. Liver: 11.2 cm in length. Normal size liver. Numerous low-attenuation masses noted on the prior CT from 05/30/2024 are not visualized or identified by ultrasound. There is a small cyst in the central liver measuring 1.1 cm. The larger more peripheral cysts are not visualized. No intrahepatic duct dilata tion. Portal Vein: Normal hepatopetal flow with monophasic waveform. Gallbladder: Normally distended gallbladder with several stones. Largest stone measuring 1.8 cm in diameter. CBD: 0.3 cm Pancreas: Normal size and echogenicity. Right kidney: 11.3 cm in length. Normal size and echogenicity. No hydronephrosis or mass. Aorta and IVC: Unremarkable abdominal aorta and IVC. No ascites. US/US liver [id number] IMPRESSION: 1. Cholelithiasis without acute cholecystitis. 2. No intrahepatic duct dilatation. 3. Small central hepatic cyst. The larger previously noted low-attenuation mas ses on CT are not evident. These may have resolved. No solid mass identified.
--- NOTE | 2024-11-22 07:30 | USR_ITS ---
PROCEDURE INFORMATION: Exam: US Soft Tissue Head and Neck, TI-RADS Exam date and time: 11/22/2024 7:26 AM Age: 59 years old Clinical indication: Condition or disease; Thyroid disorder; Other: Nodule; Additional info: E04.1 - nontoxic single thyroid nodule TECHNIQUE: Imaging protocol: Real-time ultrasound scan of the neck with image documentation. Exam focused on the thyroid. COMPARISON: US thyroid [id number] 18/06/2023 08:30 FINDINGS: Right thyroid lobe: Not enlarged. Left thyroid lobe: Not enlarged. 0.4 cm cyst noted. Isthmus: Not thickened. Thyroid nodule 1 Size: 1.9 cm Thyroid nodule 1 Location: Anteromedial right thyroid lobe Thyroid nodule 1 Composition: Mixed cystic and solid Thyroid nodule 1 Echogenicity: Isoechoic Thyroid nodule 1 Shape: Wider than taller Thyroid nodule 1 Margins: Smooth Thyroid nodule 1 Echogenic foci: No Thyroid nodule 1 Points: 2 Thyroid nodule 2 Size: 1.1 cm Thyroid nodule 2 Location: Mid posterior right thyroid lobe Thyroid nodule 2 Composition: Mixed cystic and solid Thyroid nodule 2 Echogenicity: Hypoechoic Thyroid nodule 2 Shape: Wider than taller Thyroid nodule 2 Margins: Smooth Thyroid nodule 2 Echogenic foci: No Thyroid nodule 2 Points: 3 Lymph nodes: No enlarged nodes. US/US thyroid [id number] IMPRESSION: 1. Anterior medial right thyroid lobe nodule measuring 1.9 cm, with TI-RADS 2 imaging characteristics. No FNA or follow-up recommended. 2. Mid posterior right thyroid lobe nodule measuring 1.1 cm, with TI-RADS 3 imaging characteristics. No FNA or follow-up recommended.
== END 2024-11-22 07:05 | disposition home or self-care (01) ==
PROVIDERS: PCP Nurse Practitioner; Visit Provider Nurse Practitioner
DX: E04.2 Nontoxic multinodular goiter (principal); R10.811 Right upper quadrant abdominal tenderness; K80.20 Calculus of gallbladder without cholecystitis without obstruction; K76.89 Other specified diseases of liver
CPT/HCPCS: 76536; 76705

== ENCOUNTER → 2024-12-13 10:08 | Outpatient (BNVA) | payer MEDICAID, SELFPAY | PROVIDERS: PCP Nurse Practitioner; Visit Provider Nurse Practitioner Family | DX: Z12.83 Encounter for screening for malignant neoplasm of skin (principal) | CPT/HCPCS: 17000; 17110; 99203 ==

== ENCOUNTER → 2025-02-26 13:44 | Outpatient (BNVA) | payer MEDICAID, SELFPAY | PROVIDERS: PCP Nurse Practitioner; Visit Provider Nurse Practitioner | DX: E04.1 Nontoxic single thyroid nodule (principal); Z79.899 Other long term (current) drug therapy; R73.9 Hyperglycemia, unspecified | CPT/HCPCS: 80053; 83036; 84443; 85025 ==

== ENCOUNTER 2025-03-19 07:02 | Emergency (ER) | payer MEDICAID, SELFPAY ==
--- OUTSIDE RECORDS SUMMARY | 2018-11-04 04:53 | XMS_ITS | Continuity of Care Document ---
Author Organization [facility] Address [address] [facility] [place] [address] Phone Care Team Providers Care Counter Help Name Role Phone Jose L Rooney DO [...] take with food as directed - Active sertraline 50 mg tablet take 1 tablet by oral route every day 50 MG - Active Vascepa 1 gram capsule take 2 capsule by oral route 2 times every day with food swallowing whole. Do not chew, open, dissolve and/or crush. 2 G - Active Victoza 3-Mart 0.6 mg/0.1 mL (18 mg/3 mL) subcutaneous pen injector inject (1.2MG) by subcutaneous route every day 1.2 MG - Active Vitamin D3 5,000 unit tablet take 1 tablet by oral route every day 1 tablet - Active Procedures Procedure Date OFFICE/OUTPATIENT VISIT EST Advance Directives Directive Yes / No Effective Date File Name No Information Encounters Encounter Description Practice Location Reason(s) For Visit Diagnoses Date Provider Providers Copied on Encounter [facility], [address] [facility] [address] , [place], [place], [id number], tel:[phone] [facility] No Information 9 Nevin Domingo. [address], [place], [place], [address], [place]. tel:[phone] [facility], [address] [facility] , [place], [place], [address], [place] tel:[phone] [facility] No Information 8 Nevin Domingo. [address], [place], [place], [address], [place]. tel:[phone] OFFICE/OUTPA TIENT VISIT EST [facility], [address] [facility] [place], [place], [address], tel:[phone] [facility] cough (chief complaint) dyspnea (chief complaint) diabetes (chief complaint) hyperlipid emia (chief complaint) Body mass index (BMI) 32.0-32.9, adultAcute bronchitisFatigue Type 2 diabetes mellitus without complicationsVita min D deficiency, unspecifiedHyperl ipidemia, unspecified 8 Alonzo Janey. [address] [place] [address], [id number], . tel:[phone] [facility], [address] [facility] [address] [place], [place], [address], tel:[phone] [facility] No Information 8 Alonzo Janey. [address] [place] [address], [id number], [place]. tel:[phone] Family History Family Member Type Diagnosis Age At Onset No Information Payers Payer name Insurance type Covered republican ID Authoriza tion(s) [facility] [id number] Social History Type Description Quantity Date Captured Comments Alcohol Use Details Unknown Caffeine Use Details Unknown Tobacco Use Status Smoking Status No Information Sex Female Sexual Orientation Straight or heterosexual Gender Identity Female Chief Complaint And Reason [...] Pneumococcal vac cine. Due on due Goal Dilated eye exam. Due on Oct due Goal GFR. Due on due Goal Foot exam. Due on 9 due Goal Dental exam. Due on 019 due Goal Urine microalbumin. Due on due Goal Influenza vaccine. Due [...] Goal Influenza vaccine. Due on due Goal Mammogram. Due on 8 due Goal Td vaccine. Due on 18 due Goal Lipid panel. Due on due Goal Depression scree anabel. Due on due Goal FOBT. Due on due Goal Tdap. Due on due Goal Sigmoidoscopy. Due on due Goal Colonoscopy. Due on due Goal Pap/HPV testing. Due on due Goal Dietary manageme nt education, guidance, and counseling completed Future Order: Lab Order CBC (INC LUDES DIFF/PLT) ([id number]), Scheduled for: Ordered Future Order: Lab Order COMPREHE NSIVE METABOLIC PANEL ([id number]), Scheduled for: Ordered Future Order: Lab Order HEMOGLOB IN A1C (496), Scheduled for: Ordered Future Order: Lab Order LIPID PA BRIJESH ([id number]), Scheduled for: Ordered Future Order: Lab Order TSH, 3RD GENERATION ([id number]), Scheduled for: Ordered Future Order: Lab Order VITAMIN D,25-OH,TOTAL,IA ([id number]), Scheduled for: Ordered History Of Present Illness Encounter Date Complaint History Of Prese nt Illness diabetes The problem is s table. Risk [...] getting worse and her chest feels tight. cough Onset: 5 days ag o. The patient describes the cough as productive (of yellow sputum). There are no aggravating factors. Relieving factors include air borne and hot tea. Associated symptoms include chills, cough, fatigue, fever, nasal congestion, post-nasal drainage and sinus pressure. Additional information: Pt had some left over albuterol nebulizer solution and this did help pt get up and around today. Functional Status Date Functional Assessmen t No Information Instructions Date Instruction Additional Infor mation Get labs in 1 month and f/u in 1 week after. Related to Type 2 diabetes mellitus without complications Maintain adequate rest. Related to Fatigue Maintain adequate cl ear fluid intake. Consider use of witm-jdo-prradpi mucolytic such as guaifenesin. Will give Symbicort [...]
--- OUTSIDE RECORDS SUMMARY | 2019-02-21 09:23 | XMS_ITS | Continuity of Care Document ---
Author Organization [facility] Address [address] [place] [address] Phone Care Team Providers Care Penology Teacher Name Role Phone Greg HAN, Flash Unavailable Unavailabl e Advance Directives Directive Yes / No Effective Date File Name No Information Encounters Encounter Description Practice Location Reason(s) For Visit Diagnoses Date Provider Providers Copied on Encounter [facility], [address], [place], [place], [address], [place] tel:[phone] [facility] No Information Greg Vidales. [address], [place], [place], [address], [place]. tel:[phone] Family History Family Member Type Diagnosis Age At Onset No Information Payers Payer name Insurance type Covered green party ID Authoriza tion(s) No Information Social History Type Description Quantity Date Captured Comments Sex Female Smoking Status No Information Chief Complaint And Reason For Visit No Information Reason For Referral Reason For Referral No Information History Of Present Illness Encounter Date Complaint History Of Prese nt Illness No Information Functional Status Date Functional Assessmen t No Information Instructions Date Instruction Additional Infor mation No Information Assessments Type Assessment Date No Information Patient Care Teams Name Effective Dates (start - stop) Status Members No Information
[2025-03-19] VITALS (38 sets, daily range): BP systolic 124–165; BP diastolic 81–115; PULSE 60–95; RESP 10–29; TEMP 36.4; O2SAT 94–100
--- NOTE | 2025-03-19 07:07 | ECG_ITS ---
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 Measurements Intervals [place] Rate: 71 P: 66 AL: 179 QRS: 66 QRSD: 90 T: 58 QT: 429 QTc: 469 Interpretive Statements SINUS RHYTHM INTERPRETATION BASED ON A DEFAULT AGE OF 40 YEARS Poor R wave progression Compared to ECG 10/09/2024 09:24:32 Myocardial infarct finding no longer present Electronically Signed On 03-19-2025 17:00:33 CDT by Deon Davis M.D. [email or web address]
--- NOTE | 2025-03-19 07:09 | XRR_ITS ---
PROCEDURE INFORMATION: Exam: XR Chest Exam date and time: 03/19/2025 7:38 AM Age: 59 years old Clinical indication: Pain; Angina pectoris; Additional info: Chest pain TECHNIQUE: Imaging protocol: Radiologic exam of the chest. Views: 1 view. COMPARISON: CR XR chest 1V portable [id number] 10/09/2024 9:13 AM FINDINGS: Lungs: No focal consolidation. Small calcified granulomas in the right lower lung. Pleural spaces: No pleural effusion. No pneumothorax. Heart/Mediastinum: No cardiomegaly. Bones/joints: No acute abnormality. XR/XR chest 1V portable [id number] IMPRESSION: No acute pulmonary process.
--- NOTE | 2025-03-19 07:09 | ED_ITS ---
HPI - Chest Pain 2 General: Chief Complaint: Chest Pain Stated Complaint: cp Time Seen by Provider: 03/19/25 07:03 History of Present Illness: 59-year-old female presents emergency ro om complaining of chest pain she has had for the last 3 days she describes it as a pressure on the right side of her upper chest she does not notice anything that aggravates or relieves it. She denies any history of DVT or heart disease or pulmonary embolism. She has not had any fever sweats chills or productive cough. She has not noticed anything that exacerbates or relieves that she has had palpitations at times as her blood pressures been running high. She states that many years ago she had a stress test that was negative. She is not diabetic and she does not smoke. Associated symptoms: Reports palpitations; Deny abdominal pain, dyspnea or fever(s) Related Data Home Medications ?Medication ?Instructions ?Recorded ?Confirmed abatacept 125 mg/mL subcutaneous 125 mg SUBCUT .week 0 10/12/24 03/19/25 syringe (Orencia) leflunomide 20 mg tablet 20 mg PO QDAY 01/08/2503/19 prednisone 10 mg tablet 5 mg PO DAILY 03/19/2503/19 triamcinolone acetonide 0.1 % See Rx Instructions .Rou te .COMPLEX 03/19/25 03/19/25 topical cream Previous Rx's ?Medication ?Instructions ?Recorded albuterol sulfate 90 mcg/actuation 1 inh inhalation QI D PRN shortness 01/08/25 aerosol inhaler (Ventolin HFA) of breath or wheezing # 6.7 grams famotidine 40 mg tablet (Pepcid) 40 mg PO DAILY #30 ta bs 01/08/25 gabapentin 800 mg tablet 800 mg PO TID #90 tabs 01/08 metoprolol succinate 25 mg 25 mg PO QPM #30 tabs 01/08 tablet,extended release 24 hr tizanidine 2 mg tablet 2 mg PO Q12H PRN muscle spas ms #60 01/08/25 tabs umeclidinium 62.5 mcg-vilanterol 1 inh inhalation ALEKS Y #60 ea 01/08/25 25 mcg/actuation powdr for inhalation (Anoro Ellipta) levothyroxine 25 mcg tablet 12.5 mcg (1/2 x 25 mcg) PO DAILY 02/28/25 (Levo-T) #30 tabs loperamide 2 mg capsule (Imodium 2 mg PO Q6H PRN loose stool #8 caps 02/28/25 A-D) Allergies Allergy/AdvReac Type Severity Reaction Status Date / Time latex Allergy Mild Rash Verified 02/28/25 13:01 adalimumab (From Humira) Allergy Unknown Verified 03/19/25 07:11 mepivacaine (From Carbocaine) Allergy rash, Verified 02/28/25 13:01 swelling methotrexate Allergy ADR-Diarrhe Verified 02/28/25 13:01 a Sulfa (Sulfonamide Allergy unknown Verified 02/28/25 13:01 Antibiotics) Review of Systems 2 Const: Denies: fever(s) or chills Card: Reports: chest pain and palpitations; Denies: edema, dyspnea on exertion or orthopnea Resp: Denies: dyspnea GI: Denies: abdominal pain : Denies: dysuria, urinary frequency or urinary urgency Musc: Denies: neck pain or back pain Skin/Breast: Denies: rash PFSH ED 2 PFSH: Medical History Chronic bronchitis Noncompliance with medication regimen Seropositive rheumatoid arthritis of multiple sites Palpitations Immunization counseling History of kidney cancer Single kidney S/p nephrectomy GERD (gastroesophageal reflux disease) Osteoporosis High risk medication use Rheumatoid arthritis with rheumatoid factor Current chronic use of systemic steroids Neoplasm of kidney Surgical History History of nephrectomy, left Due to renal cancer Hx of tonsillectomy Family History Mother Cancer Diabetes Hypertension CAD (coronary artery disease) Rheumatoid arthritis Father Hypertension CAD (coronary artery disease) Myocardial infarction Other Heart disease Lupus Denies family history of Chronic kidney disease (CKD) Systemic lupus erythematosus (SLE) in adult Stroke Social History Smoking and tobacco/nicotine status: former use of tobacco/nicotine Quit status (tobacco/nicotine): has quit using Second hand smoke exposure: No Alcohol intake: never Substance/Drug Use: never Adopted: No Caregiver/support person: No Lives independently: Yes Household members: spouse Housing: House Marital status: Number of children: 3 service: No Current occupational status: unemployed Pets and animals: Yes Pets & animals: dog(s) Do you think of yourself as: Straight/Heterosexual Current gender identity: Female Physical Exam 2 Const: COMMON NORMALS: no acute distress GENERAL APPEARANCE: cooperative and comfortable ORIENTATION/CONSCIOUSNESS: Yes awake, Yes oriented to person, Yes oriented to place and Yes oriented to time HENMT: COMMON NORMALS: normocephalic, atraumatic and hearing grossly normal bilaterally HEAD & SCALP: normocephalic and atraumatic Resp: COMMON NORMALS: normal respiratory effort, No retractions, No use of accessory muscles and clear to auscultation bilaterally AUSCULTATION: clear to auscultation bilaterally Cardio: COMMON NORMALS: regular rate, regular rhythm and No murmurs present (Cardio) RATE: regular rate RHYTHM: regular rhythm GI: COMMON NORMALS: Soft to palpation and No hepatosplenomegaly present A USCULTATION: Yes normoactive bowel sounds PALPATION: Yes Soft to palpation, No Tenderness to palpation present (GI), No Guarding due to palpation present (GI) and Yes No hepatosplenomegaly present Extremity: COMMON NORMALS: normal to inspection, capillary refill normal, no clubbing, cyanosis or edema, no calf tenderness and no pedal edema Neuro: SENSORIUM/ORIENTATION: Yes oriented to person, Yes oriented to place and Yes oriented to time Skin: COMMON NORMALS: no rashes or lesions noted GENERAL SKIN EXAM: no rashes or lesions noted Course 2 Vital Signs: Vital signs: Vital Signs Temperature 97.5 F L 03/19/25 07:11 Pulse Rate 68 03/19/25 11:07 Respiratory Rate 29 H 03/19/25 10:40 Blood Pressure 142/94 03/19/25 11:07 Pulse Oximetry 100 03/19/25 11:07 Oxygen Delivery Me thod Room Air 03/19/25 07:49 MDM - Chest Pain Medical Decision Making Patient has a history of A-fib is in normal sinus rhythm now. She had some atypical chest discomfort earlier but has no further symptoms at this time. She is feeling much better will discharge home have her follow-up with her primary care doctor. Lab Data 03/19/25 07:39 03/19/25 07:39 Radiology Impressions Chest X-Ray 03/19/25 07:09 IMPRESSION: No acute pulmonary process. Laboratory Results WBC 6.22 10^3/uL (3.29-11.43) 03/19/25 07:39 RBC 5.38 10^6/uL (3.85-5.65) 03/19/25 07:39 Hgb 14.10 g/dL (11.27-16.99) 03/19/25 07:39 Hct 45.3 % (36-47) 03/19/25 07:39 MCV 84.2 fl (85-98) L 03/19/25 07:39 MCH 26.2 pg (27-33) L 03/19/25 07:39 MCHC 31.1 g/dL (30-55) 03/19/25 07:39 RDW 16.4 % (12.1-15.1) H 03/19/25 07:39 Plt Count 197 10^3/cmm (157-399) 03/19/25 07:39 MPV 10.8 fL (7.4-10.4) H 03/19/25 07:39 Neut % (Auto) 33.7 % 03/19/25 07:39 Lymph % (Auto) 50.5 % 03/19/25 07:39 [place] % (Auto) 14.1 % 03/19/25 07:39 Eos % (Auto) 0.8 % 03/19/25 07:39 Baso % (Auto) 0.6 % 03/19/25 07:39 Neut # (Auto) 2.09 10^3/uL (1.8-7.7) 03/19/25 07:39 Lymph # (Auto) 3.1 10^3/uL (0.8-4.8) 03/19/25 07:39 [place] # (Auto) 0.9 10^3/uL (0.2-0.9) 03/19/25 07:39 Eos # (Auto) 0.1 10^3/uL (0.0-0.8) 03/19/25 07:39 Baso # (Auto) 0.0 10^3/uL (0.0-0.1) 03/19/25 07:39 Nucleated RBC % (auto) 0 % 03/19/25 07:39 Nucleated RBCs # 0.0 /100WBC 03/19/25 07:39 Sodium 142 mmol/L (136-145) 03/19/25 07:39 Potassium 3.0 mmol/L (3.5-5.1) L 03/19/25 07:39 Chloride 102 mmol/L (98-107) 03/19/25 07:39 Carbon Dioxide 23 mmol/L (22-29) 03/19/25 07:39 Anion Gap 20.0 (5-19) H 03/19/25 07:39 BUN 6 mg/dL (8-23) L 03/19/25 07:39 Creatinine 1.0 mg/dL (0.5-0.9) H 03/19/25 07:39 GFR Calculation 56.4 mL/min (90-130) L 03/19/25 07:39 Glucose 93 mg/dL (65-115) 03/19/25 07:39 Calculated Osmolality 291 mOsm/kg (285-295) 03/19/25 07:39 Calcium 9.3 mg/dL (8.5-10.5) 03/19/25 07:39 Total Bilirubin 0.5 mg/dL (0.15-1.2) 03/19/25 07:39 AST 32 U/L (0-32) 03/19/25 07:39 ALT 17 U/L (0-33) 03/19/25 07:39 Alkaline Phosphatase 94 U/L (35-105) 03/19/25 07:39 Troponin T Baseline 13 ng/L (0-10) H 03/19/25 07:39 Troponin T 120 Minute 9.52 ng/L (0-10) 03/19/25 09:27 Delta Troponin T -3.48 ABS# (0-10) L 03/19/25 09:27 Total Protein 7.1 g/dL (6.6-8.7) 03/19/25 07:39 Albumin 4.4 g/dL (3.5-5.2) 03/19/25 07:39 Globulin 2.7 g/dL (1.3-4.6) 03/19/25 07:39 All radiology interpretation(s) finalized by discharge EKG Data EKG 1: Interpretation: EKG March 19, 2025 7:07 AM normal sinus rhythm with a rate of 71 NV interval 179 [address]Tc [address] acute [address] changes noted. No significant changes from October 09, 2024 EKG 2: Interpretation: EKG 03/19/2025 sinus rhythm rate of 60 parable 186 QTc [address] changes noted compared to her EKG done earlier same day no changes Discharge Plan Discharge Patient Disposition: Home Clinical Impression: Atrial fibrillation with controlled ventricular response, Atypical chest pain Condition: Stable Prescriptions: No Action Orencia 125 mg/mL syringe 125 mg SUBCUT .week leflunomide 20 mg tablet 20 mg PO QDAY Anoro Ellipta 62.5-25 mcg/actuation blister with device 1 inh inhalation DAILY Qty: 60 5RF gabapentin 800 mg tablet 800 mg PO TID Qty: 90 5RF famotidine [Pepcid] 40 mg tablet 40 mg PO DAILY Qty: 30 5RF albuterol sulfate [Ventolin HFA] 90 mcg/actuation HFA aerosol inhaler 1 inh INHALATION QID PRN (Reason: shortness of breath or wheezing) Qty: 6.7 1RF metoprolol succinate 25 mg tablet extended release 24 hr 25 mg PO QPM Qty: 30 5RF tizanidine 2 mg tablet 2 mg PO Q12H PRN (Reason: muscle spasms) Qty: 60 2RF loperamide [Imodium A-D] 2 mg capsule 2 mg PO Q6H PRN (Reason: loose stool) Qty: 8 0RF levothyroxine [Levo-T] 25 mcg tablet 12.5 mcg PO DAILY Qty: 30 2RF prednisone 10 mg tablet 5 mg PO DAILY triamcinolone acetonide 0.1 % cream See Rx Instructions .ROUTE .COMPLEX Rx Instructions: Apply to bilateral legs twice daily as needed for rash. Discharge Orders: Discharge ED (Routine); Ordered 03/19/25 Ordered By: Royer Hernadez Referrals: Destin Manzano, MIXER FOAM RUBBER-C [Primary Care Provider, Family Practice] Patient Instructions: Opioid Safety, Pain Management, Patient Portal & Jensen Instructions Activity Restrictions/Additional Instructions: Thank you for choosing [facility] for your healthcare needs today. It is very important that you follow up as instructed or that you return to the Emergency Department should you have concerns or if your condition changes or worsens in any way. You are seen in the emergency room with complaint of right-sided chest pain your cardiac enzymes and EKG did not show any acute changes. There is no sign of pneumonia pneumothorax or other critical causes of chest pain at this time. Print Language: Albanian Coding Level of Care Code ED [employer] Transactions Attorney for Celine Tompkins
--- OUTSIDE RECORDS SUMMARY | 2025-03-19 07:09 | XMS_ITS | Encounter Summary ---
Author Organization [facility] Address [address] [place] [address] Care Team Providers Care Display Coordinator Name Role Phone Inga Sullivan SENIOR MEDICAL WRITER Primary Care Provider [phone] Encounter Details Date Type Department Care Team (Late st Contact Info) Description 04/14/2002 Outpatient Historical [facility] Imaging Services-Janusz [place] [address] [place] [id number] Randy Díaz, DO [address] [facility] [address] [place] [id number] RHEUMATOID ARTHRITIS (CMS/[facility]) (Primary Dx) Social History Tobacco Use Types Packs/Day Years Used Date Smoking Tobacco: Never Assessed Comments Unknown Sex and Gender Information Value Date Recorded Sex Assigned at Not on file Legal Sex Female 5:44 AM MINING ENGINEERING TECHNOLOGIST Gender Identity Not on file Sexual Orientation Not on file documented as of this encounter Plan of Treatment Not on file documented as of this encounter Visit Diagnoses Diagnosis Rheumatoid arthritis(714.0) (CMS/HCC)- Primary Rheumatoid arthritis documented in this encounter Care Teams Display Coordinator Relationship Specialty Start Date End Date Inga Sullivan NP [address] [place] [id number] PCP - General 09/20/08 documented as of this encounter
--- OUTSIDE RECORDS SUMMARY | 2025-03-19 07:09 | XMS_ITS | Encounter Summary ---
Author Organization [facility] Address [address] [place] [address] Care Team Providers Care Silk Soaker Name Role Phone Inga Sullivan PULVERIZING AND SIFTING OPERATOR Primary Care Provider [phone] Encounter Details Date Type Department Care Team (Late st Contact Info) Description 04/14/2002 Outpatient Historical [facility] Rheumatology- [place] Ravindra [place] [address] [place] [phone] Randy Díaz, DO [address] [facility] [address] [place] [address] RHEUMATOID ARTHRITIS (CMS/[facility]) (Primary Dx) Social History Tobacco Use Types Packs/Day Years Used Date Smoking Tobacco: Never Assessed Comments Unknown Sex and Gender Information Value Date Recorded Sex Assigned at Not on file Legal Sex Female 5:44 AM THREAD ROLLER Gender Identity Not on file Sexual Orientation Not on file documented as of this encounter Plan of Treatment Not on file documented as of this encounter Visit Diagnoses Diagnosis Rheumatoid arthritis(714.0) (CMS/HCC)- Primary Rheumatoid arthritis documented in this encounter Care Teams Silk Soaker Relationship Specialty Start Date End Date Inga Sullivan NP [address] [place] [address] PCP - General 09/20/08 documented as of this encounter
--- OUTSIDE RECORDS SUMMARY | 2025-03-19 07:09 | XMS_ITS | Encounter Summary ---
Author Organization [facility] Address [address] [place] [address] Care Team Providers Care Supervisor Pipe Finishing Name Role Phone Inga Sullivan TICKETING AGENT Primary Care Provider [phone] Encounter Details Date Type Department Care Team (Late st Contact Info) Description 09/06/2002 Outpatient Historical [facility] Rheumatology- [place] Ravindra [place] [address] [place] [address] Randy Díaz, DO [address] [facility] [address] [place] [address] RHEUMATOID ARTHRITIS (CMS/[facility]) (Primary Dx); JOINT PAIN-L/LEG; JOINT EFFUSION-L/LEG; AFTERCARE RESIDENTIAL USE MEDICATN Social History Tobacco Use Types Packs/Day Years Used Date Smoking Tobacco: Never Assessed Comments Unknown Sex and Gender Information Value Date Recorded Sex Assigned at Not on file Legal Sex Female 5:44 AM WIRE INSULATOR Gender Identity Not on file Sexual Orientation Not on file documented as of this encounter Plan of Treatment Not on file documented as of this encounter Visit Diagnoses Diagnosis Rheumatoid arthritis(714.0) (CMS/HCC)- Primary Rheumatoid arthritis Pain in joint, lower leg Effusion of lower leg joint Encounter for long-term (current) use of other medications documented in this encounter Care Teams Supervisor Pipe Finishing Relationship Specialty Start Date End Date Inga Sullivan, [place] [address] [place] [address] PCP - General 09/20/08 documented as of this encounter
--- OUTSIDE RECORDS SUMMARY | 2025-03-19 07:09 | XMS_ITS | Encounter Summary ---
Author Organization [facility] Address [address] [place] [address] Care Team Providers Care Finishing Room Supervisor Name Role Phone Inga Sullivan READING RECOVERY TEACHER Primary Care Provider [phone] Encounter Details Date Type Department Care Team (Late st Contact Info) Description 05/14/2003 Outpatient Historical [facility] Rheumatology- [place] Ravindra [place] [address] [place] [address] Randy Díaz, [address] [facility] [address] [place] [phone] RHEUMATOID ARTHRITIS (CMS/[facility]) (Primary Dx); AFTERCARE REMOTE BROADCAST TECHNICIAN USE MEDICATN Social History Tobacco Use Types Packs/Day Years Used Date Smoking Tobacco: Never Assessed Comments Unknown Sex and Gender Information Value Date Recorded Sex Assigned at Not on file Legal Sex Female 5:44 AM STRATEGIC ACCOUNT DIRECTOR Gender Identity Not on file Sexual Orientation Not on file documented as of this encounter Plan of Treatment Not on file documented as of this encounter Visit Diagnoses Diagnosis Rheumatoid arthritis(714.0) (CMS/HCC)- Primary Rheumatoid arthritis Encounter for long-term (current) use of other medications documented in this encounter Care Teams Finishing Room Supervisor Relationship Specialty Start Date End Date Inga Sullivan NP [address] [place] [address] PCP - General 09/20/08 documented as of this encounter
--- OUTSIDE RECORDS SUMMARY | 2025-03-19 07:09 | XMS_ITS | Encounter Summary ---
Author Organization [facility] Address [address] [place] [address] Care Team Providers Care Political Advisor Name Role Phone Inga Sullivan MOBILE HEALTH VEHICLE OPERATOR Primary Care Provider [phone] Encounter Details Date Type Department Care Team (Late st Contact Info) Description 03/15/2003 Outpatient Historical [facility] Rheumatology- [place] Ravindra [place] [address] [place] [address] Randy Díaz, [address] [facility] [address] [place] [phone] RHEUMATOID ARTHRITIS (CMS/[facility]) (Primary Dx); AFTERCARE DEPLOYMENT ENGINEER USE MEDICATN Social History Tobacco Use Types Packs/Day Years Used Date Smoking Tobacco: Never Assessed Comments Unknown Sex and Gender Information Value Date Recorded Sex Assigned at Not on file Legal Sex Female 5:44 AM DOCK GUARD Gender Identity Not on file Sexual Orientation Not on file documented as of this encounter Plan of Treatment Not on file documented as of this encounter Visit Diagnoses Diagnosis Rheumatoid arthritis(714.0) (CMS/HCC)- Primary Rheumatoid arthritis Encounter for long-term (current) use of other medications documented in this encounter Care Teams Political Advisor Relationship Specialty Start Date End Date Inga Sullivan NP [address] [place] [id number] PCP - General 09/20/08 documented as of this encounter
--- OUTSIDE RECORDS SUMMARY | 2025-03-19 07:09 | XMS_ITS | Encounter Summary ---
Author Organization [facility] Address [address] [place] [address] Care Team Providers Care Wool Washer Feeder Name Role Phone Inga Sullivan THEATRICAL SCENIC DESIGNER Primary Care Provider [phone] Encounter Details Date Type Department Care Team (Late st Contact Info) Description 10/31/2003 Outpatient Historical [facility] Rheumatology- [place] Ravindra Malone [address] [place] [address] Randy Díaz, [address] [facility] [address] [place] [phone] RHEUMATOID ARTHRITIS (CMS/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
--- OUTSIDE RECORDS SUMMARY | 2025-03-19 07:09 | XMS_ITS | Encounter Summary ---
Author Organization [facility] Address [address] [place] [address] Care Team Providers Care Foundry Hand Name Role Phone Inga Sullivan IN HOME SALES CONSULTANT Primary Care Provider [phone] Encounter Details Date Type Department Care Team (Late st Contact Info) Description 12/07/2002 Outpatient Historical [facility] Rheumatology- [place] Ravindra Lamont [address] [place] [address] Randy Díaz, [address] [facility] [address] [place] [phone] RHEUMATOID ARTHRITIS (CMS/[facility]) (Primary Dx); AFTERCARE MEDIATOR USE MEDICATN Social History Tobacco Use Types Packs/Day Years Used Date Smoking Tobacco: Never Assessed Comments Unknown Sex and Gender Information Value Date Recorded Sex Assigned at Not on file Legal Sex Female 5:44 AM RED MUD THICKENER OPERATOR Gender Identity Not on file Sexual Orientation Not on file documented as of this encounter Plan of Treatment Not on file documented as of this encounter Visit Diagnoses Diagnosis Rheumatoid arthritis(714.0) (CMS/HCC)- Primary Rheumatoid arthritis Encounter for long-term (current) use of other medications documented in this encounter Care Teams Foundry Hand Relationship Specialty Start Date End Date Inga Sullivan NP [address] [place] [address] PCP - General 09/20/08 documented as of this encounter
--- OUTSIDE RECORDS SUMMARY | 2025-03-19 07:09 | XMS_ITS | Encounter Summary ---
Author Organization [facility] Address [address] [place] [address] Care Team Providers Care Coverstitch Elastic Attacher Name Role Phone Inga Sullivan KITCHEN WORKER Primary Care Provider [phone] Encounter Details Date Type Department Care Team (Late st Contact Info) Description 11/07/2002 Outpatient Historical [facility] Rheumatology- [place] Ravindra [place] [address] [place] [address] Randy Díaz, [address] [facility] [address] [place] [phone] RHEUMATOID ARTHRITIS (CMS/[facility]) (Primary Dx); AFTERCARE NEEDLE STRAIGHTENER USE MEDICATN Social History Tobacco Use Types Packs/Day Years Used Date Smoking Tobacco: Never Assessed Comments Unknown Sex and Gender Information Value Date Recorded Sex Assigned at Not on file Legal Sex Female 5:44 AM CATERING BARISTA Gender Identity Not on file Sexual Orientation Not on file documented as of this encounter Plan of Treatment Not on file documented as of this encounter Visit Diagnoses Diagnosis Rheumatoid arthritis(714.0) (CMS/HCC)- Primary Rheumatoid arthritis Encounter for long-term (current) use of other medications documented in this encounter Care Teams Coverstitch Elastic Attacher Relationship Specialty Start Date End Date Inga Sullivan NP [address] [place] [address] PCP - General 09/20/08 documented as of this encounter
--- OUTSIDE RECORDS SUMMARY | 2025-03-19 07:09 | XMS_ITS | Encounter Summary ---
Author Organization [facility] Address [address] [place] [address] Care Team Providers Care Washer Off Name Role Phone Inga Sullivan SENIOR TALENT ACQUISITION SPECIALIST Primary Care Provider [phone] Encounter Details Date Type Department Care Team (Late st Contact Info) Description 07/05/2003 Outpatient Historical [facility] Rheumatology- [place] Ravindra [place] [address] [place] [address] Randy Díaz, [address] [facility] [address] [place] [phone] RHEUMATOID ARTHRITIS (CMS/[facility]) (Primary Dx); AFTERCARE COMMERCIAL PLUMBER USE MEDICATN Social History Tobacco Use Types Packs/Day Years Used Date Smoking Tobacco: Never Assessed Comments Unknown Sex and Gender Information Value Date Recorded Sex Assigned at Not on file Legal Sex Female 5:44 AM ASSISTANT AUDITOR Gender Identity Not on file Sexual Orientation Not on file documented as of this encounter Plan of Treatment Not on file documented as of this encounter Visit Diagnoses Diagnosis Rheumatoid arthritis(714.0) (CMS/HCC)- Primary Rheumatoid arthritis Encounter for long-term (current) use of other medications documented in this encounter Care Teams Washer Off Relationship Specialty Start Date End Date Inga Sullivan NP [address] [place] [id number] PCP - General 09/20/08 documented as of this encounter
--- OUTSIDE RECORDS SUMMARY | 2025-03-19 07:09 | XMS_ITS | Encounter Summary ---
Author Organization [facility] Address [address] [place] [address] Care Team Providers Care Chemist Organic Name Role Phone Inga Sullivan LIBRARY MEDIA ASSISTANT Primary Care Provider [phone] Encounter Details Date Type Department Care Team (Late st Contact Info) Description 03/15/2003 Outpatient Historical [facility] Rheumatology- [place] [facility] [address] [place] [address] Randy Díaz, [address] [facility] [address] [place] [address] RHEUMATOID ARTHRITIS (CMS/[facility]) (Primary Dx); ALOPECIA NEC; AFTERCARE SPEECH AND HEARING CLINIC DIRECTOR USE MEDICATN Social History Tobacco Use Types Packs/Day Years Used Date Smoking Tobacco: Never Assessed Comments Unknown Sex and Gender Information Value Date Recorded Sex Assigned at Not on file Legal Sex Female 5:44 AM METAL BONDER Gender Identity Not on file Sexual Orientation Not on file documented as of this encounter Plan of Treatment Not on file documented as of this encounter Visit Diagnoses Diagnosis Rheumatoid arthritis(714.0) (CMS/HCC)- Primary Rheumatoid arthritis Other alopecia Encounter for long-term (current) use of other medications documented in this encounter Care Teams Chemist Organic Relationship Specialty Start Date End Date Inga Sullivan, [place] [address] [place] [address] PCP - General 09/20/08 documented as of this encounter
--- OUTSIDE RECORDS SUMMARY | 2025-03-19 07:09 | XMS_ITS | Encounter Summary ---
Author Organization [facility] Address [address] [place] [address] Care Team Providers Care Jewelsmith Name Role Phone Inga Sullivan FIRE SYSTEMS INSPECTOR Primary Care Provider [phone] Encounter Details Date Type Department Care Team (Late st Contact Info) Description 10/12/2002 Outpatient Historical [facility] Rheumatology- [place] Ravindra [place] [address] [place] [address] Randy Díaz, [address] [facility] [address] [place] [phone] RHEUMATOID ARTHRITIS (CMS/[facility]) (Primary Dx); AFTERCARE INTERACTIVE PRODUCER USE MEDICATN Social History Tobacco Use Types Packs/Day Years Used Date Smoking Tobacco: Never Assessed Comments Unknown Sex and Gender Information Value Date Recorded Sex Assigned at Not on file Legal Sex Female 5:44 AM PHOTOVOLTAIC SOLAR CELL DESIGNER Gender Identity Not on file Sexual Orientation Not on file documented as of this encounter Plan of Treatment Not on file documented as of this encounter Visit Diagnoses Diagnosis Rheumatoid arthritis(714.0) (CMS/HCC)- Primary Rheumatoid arthritis Encounter for long-term (current) use of other medications documented in this encounter Care Teams Jewelsmith Relationship Specialty Start Date End Date Inga Sullivan NP [address] [place] [address] PCP - General 09/20/08 documented as of this encounter
--- OUTSIDE RECORDS SUMMARY | 2025-03-19 07:09 | XMS_ITS | Encounter Summary ---
Author Organization [facility] Address [address] [place] [address] Care Team Providers Care Residential Real Estate Agent Name Role Phone Inga Sullivan REVIEW COORDINATOR Primary Care Provider [phone] Encounter Details Date Type Department Care Team (Late st Contact Info) Description 09/04/2003 Outpatient Historical [facility] Rheumatology- [place] [address] [place] [address] Randy Díaz, [address] [facility] [address] [place] [phone] RHEUMATOID ARTHRITIS (CMS/[facility]) (Primary Dx); DEPRESSIVE DISORDER NEC; AFTERCARE FDC USE MEDICATN Social History Tobacco Use Types Packs/Day Years Used Date Smoking Tobacco: Never Assessed Comments Unknown Sex and Gender Information Value Date Recorded Sex Assigned at Not on file Legal Sex Female 5:44 AM TITLE CAMERA OPERATOR Gender Identity Not on file Sexual Orientation Not on file documented as of this encounter Plan of Treatment Not on file documented as of this encounter Visit Diagnoses Diagnosis Rheumatoid arthritis(714.0) (CMS/HCC)- Primary Rheumatoid arthritis Depressive disorder, not elsewhere classified Encounter for long-term (current) use of other medications documented in this encounter Care Teams Residential Real Estate Agent Relationship Specialty Start Date End Date Inga Sullivan, REVIEW COORDINATOR [address] [place] [address] PCP - General 09/20/08 documented as of this encounter
--- OUTSIDE RECORDS SUMMARY | 2025-03-19 07:09 | XMS_ITS | Encounter Summary ---
Author Organization [facility] Address [address] [place] [address] Care Team Providers Care Rn Cardiac Name Role Phone Inga Sullivan LODE MINER BLASTING Primary Care Provider [phone] Encounter Details Date Type Department Care Team (Late st Contact Info) Description 09/04/2003 Outpatient Historical [facility] Rheumatology- [place] Ravindra [place] [address] [place] [address] Randy Díaz, [address] [facility] [address] [place] [phone] RHEUMATOID ARTHRITIS (CMS/[facility]) (Primary Dx); AFTERCARE INTERNETWORKING TECHNICIAN USE MEDICATN Social History Tobacco Use Types Packs/Day Years Used Date Smoking Tobacco: Never Assessed Comments Unknown Sex and Gender Information Value Date Recorded Sex Assigned at Not on file Legal Sex Female 5:44 AM VENTILATION MECHANIC Gender Identity Not on file Sexual Orientation Not on file documented as of this encounter Plan of Treatment Not on file documented as of this encounter Visit Diagnoses Diagnosis Rheumatoid arthritis(714.0) (CMS/HCC)- Primary Rheumatoid arthritis Encounter for long-term (current) use of other medications documented in this encounter Care Teams Rn Cardiac Relationship Specialty Start Date End Date Inga Sullivan NP [address] [place] [id number] PCP - General 09/20/08 documented as of this encounter
--- OUTSIDE RECORDS SUMMARY | 2025-03-19 07:09 | XMS_ITS | Encounter Summary ---
Author Organization [facility] Address [address] [place] [address] Care Team Providers Care Onsite Health Coach Name Role Phone Inga Sullivan PEANUT BLANCHER Primary Care Provider [phone] Encounter Details Date Type Department Care Team (Late st Contact Info) Description 12/14/[address] [facility] Rheumatology- [place] Ravindra [place] [address] [place] [address] Randy Díaz, [address] [facility] [address] [place] [phone] RHEUMATOID ARTHRITIS (CMS/[facility]) (Primary Dx); AFTERCARE BAKERY PRODUCTS CHECKER USE MEDICATN Social History Tobacco Use Types Packs/Day Years Used Date Smoking Tobacco: Never Assessed Comments Unknown Sex and Gender Information Value Date Recorded Sex Assigned at Not on file Legal Sex Female 5:44 AM EPILEPSY PHYSICIAN Gender Identity Not on file Sexual Orientation Not on file documented as of this encounter Plan of Treatment Not on file documented as of this encounter Visit Diagnoses Diagnosis Rheumatoid arthritis(714.0) (CMS/HCC)- Primary Rheumatoid arthritis Encounter for long-term (current) use of other medications documented in this encounter Care Teams Onsite Health Coach Relationship Specialty Start Date End Date Inga Sullivan NP [address] [place] [address] PCP - General 09/20/08 documented as of this encounter
--- OUTSIDE RECORDS SUMMARY | 2025-03-19 07:09 | XMS_ITS | Encounter Summary ---
Author Organization [facility] Address [address] [place] [address] Care Team Providers Care Store Operations Specialist Name Role Phone Inga Sullivan ENAMEL APPLIER Primary Care Provider [phone] Encounter Details Date Type Department Care Team (Late st Contact Info) Description 01/01/2004 Outpatient Historical [facility] Rheumatology- [place] Ravindra [place] [address] [place] [address] Randy Díaz, [address] [facility] [address] [place] [phone] RHEUMATOID ARTHRITIS (CMS/[facility]) (Primary Dx); AFTERCARE BURIAL NEEDS SALESPERSON USE MEDICATN Social History Tobacco Use Types Packs/Day Years Used Date Smoking Tobacco: Never Assessed Comments Unknown Sex and Gender Information Value Date Recorded Sex Assigned at Not on file Legal Sex Female 5:44 AM CUSTOMER SUCCESS MANAGER Gender Identity Not on file Sexual Orientation Not on file documented as of this encounter Plan of Treatment Not on file documented as of this encounter Visit Diagnoses Diagnosis Rheumatoid arthritis(714.0) (CMS/HCC)- Primary Rheumatoid arthritis Encounter for long-term (current) use of other medications documented in this encounter Care Teams Store Operations Specialist Relationship Specialty Start Date End Date Inga Sullivan NP [address] [place] [id number] PCP - General 09/20/08 documented as of this encounter
--- OUTSIDE RECORDS SUMMARY | 2025-03-19 07:09 | XMS_ITS | Encounter Summary ---
Author Organization [facility] Address [address] [place] [address] Care Team Providers Care Hospice Aide Name Role Phone Inga Sullivan OPTIMIZATION CONSULTANT Primary Care Provider [phone] Encounter Details Date Type Department Care Team (Late st Contact Info) Description 07/05/2003 Outpatient Historical [facility] Rheumatology- [place] Ravindra [place] [address] [place] [address] Randy Díaz, [address] [facility] [address] [place] [address] JOINT PAIN-MULT JTS (Primary Dx); RHEUMATOID ARTHRITIS (CMS/HCC); DEPRESSIVE DISORDER NEC; AFTERCARE SENIOR LIVING USE MEDICATN Social History Tobacco Use Types Packs/Day Years Used Date Smoking Tobacco: Never Assessed Comments Unknown Sex and Gender Information Value Date Recorded Sex Assigned at Not on file Legal Sex Female 5:44 AM DISTRICT EXTENSION SERVICE AGENT Gender Identity Not on file Sexual Orientation Not on file documented as of this encounter Plan of Treatment Not on file documented as of this encounter Visit Diagnoses Diagnosis Pain in joint, multiple sites- Primary Rheumatoid arthritis(714.0) (CMS/HCC) Rheumatoid arthritis Depressive disorder, not elsewhere classified Encounter for long-term (current) use of other medications documented in this encounter Care Teams Hospice Aide Relationship Specialty Start Date End Date Inga Sullivan, [place] [address] [place] [address] PCP - General 09/20/08 documented as of this encounter
--- OUTSIDE RECORDS SUMMARY | 2025-03-19 07:09 | XMS_ITS | Encounter Summary ---
Author Organization [facility] Address [address] [place] [address] Care Team Providers Care Residential Worker Name Role Phone Inga Sullivan ONCOLOGY PATIENT NAVIGATOR Primary Care Provider [phone] Encounter Details Date Type Department Care Team (Late st Contact Info) Description 09/29/2002 Outpatient Historical [facility] Rheumatology- [place] Ravindra [place] [address] [place] [address] Randy Díaz, [address] [facility] [address] [place] [address] RHEUMATOID ARTHRITIS (CMS/[facility]) (Primary Dx); JOINT PAIN-MULT JTS; SYNOVITIS NOS Social History Tobacco Use Types Packs/Day Years Used Date Smoking Tobacco: Never Assessed Comments Unknown Sex and Gender Information Value Date Recorded Sex Assigned at Not on file Legal Sex Female 5:44 AM UNDER BASTER Gender Identity Not on file Sexual Orientation Not on file documented as of this encounter Plan of Treatment Not on file documented as of this encounter Visit Diagnoses Diagnosis Rheumatoid arthritis(714.0) (CMS/HCC)- Primary Rheumatoid arthritis Pain in joint, multiple sites Synovitis and tenosynovitis, unspecified documented in this encounter Care Teams Residential Worker Relationship Specialty Start Date End Date Inga Sullivan, AL[place] [address] [place] [address] PCP - General 09/20/08 documented as of this encounter
--- OUTSIDE RECORDS SUMMARY | 2025-03-19 07:10 | XMS_ITS | Encounter Summary ---
Author Organization [facility] Address [address] [place] [address] Care Team Providers Care Hand Collator Name Role Phone Inga Sullivan ROLL EDGE STITCHER HAND Primary Care Provider [phone] Encounter Details Date Type Department Care Team (Late st Contact Info) Description 06/07/2006 Outpatient Historical [facility] Rheumatology- [place] [facility] [place] [address] [place] [address] Randy Díaz, [address] [facility] [address] [place] [phone] Rheumatoid Arthritis (CMS/[facility]) (Primary Dx); Encounter for Long-Term (Current) Use of Other Medications Social History Tobacco Use Types Packs/Day Years Used Date Smoking Tobacco: Never Assessed Comments Unknown Sex and Gender Information Value Date Recorded Sex Assigned at Not on file Legal Sex Female 5:44 AM AQUATIC HABITAT BIOLOGIST Gender Identity Not on file Sexual Orientation Not on file documented as of this encounter Plan of Treatment Not on file documented as of this encounter Visit Diagnoses Diagnosis Rheumatoid arthritis(714.0) (CMS/HCC)- Primary Rheumatoid arthritis Encounter for long-term (current) use of other medications documented in this encounter Care Teams Hand Collator Relationship Specialty Start Date End Date Inga Sullivan, AL[place] [address] [place] [id number] PCP - General 09/20/08 documented as of this encounter
--- OUTSIDE RECORDS SUMMARY | 2025-03-19 07:10 | XMS_ITS | Clinical Summary ---
Author Organization [facility] Janusz daley Echo Address [address] [place] [address] Phone Care Team Providers Care Photo Technician Name Role Phone Inga Sullivan BRAZER INDUCTION Primary Care Provider [phone] Allergies No known active allergies Medications citalopram (CELEXA) 20 mg Oral tablet Take 10 mg by mouth daily at bedtime. Active folic acid (FOLVITE) 1 mg Oral tabletIndicatio ns:Encounter for long-term (current) use of high-risk medication Take 3 Tabs by mouth daily. To reduce potential for methotrexate related side effects. 90 Tab 11 3 Active predniSONE (DELTASONE) 5 mg Oral tabletIndicatio ns:Rheumatoid arthritis(714.0 ) ([facility]) Take 1 Tab by mouth daily with breakfast. For Rheumatoid Arthritis 30 Tab 11 3 Active methotrexate sodium 25 mg/mL Injection SolnIndications :Rheumatoid arthritis(714.0 ) ([facility]) Inject 0.5 mL by subcutaneous injection every 7 days. For Rheumatoid Arthritis. Replaces use of oral methotrexate effective 04/11/2013 4 mL 2 3 Active abatacept (ORENCIA) 125 mg/mL Syringe Inject 125 mg by subcutaneous injection every 7 days. For rheumatoid arthritis 4 mL 4 4 Active HYDROcodone-bella taminophen (NORCO) 10-325 mg Tablet Take 0.5-1 Tabs by mouth every 4 hours as needed for Pain, Severe. Arthritis pain 90 Tab 0 4 Active folic acid (FOLVITE) 1 mg tablet Take 3 Tabs by mouth daily. For rheumatoid arthritis 90 Tab 11 4 Active Active Problems Problem Noted Date Diagnosed Date Encounter for current use of high-risk medication (Methotrexate/Orencia) 12/11/2010 Rheumatoid Arthritis RF+ on MTX/Orencia 10/16/19 11 Personal history of kidney stones 09/11/2010 Overview (09/11/2010): No prior symptoms but reports some hematuria in the urine per PCP evaluation and stones identified on a spinal xray series. Resolved Problems Problem Noted Date Diagnosed Date Resolved Date Rheumatoid Arthritis RF+ 07/31/2010 Overview (09/11/2010): Remains poorly controlled with active synovitis of the PIPs, MCPs, left wrist and continued need for prednisone daily. Lack of improvement following a full 12 week Rx with Enbrel. Will discontinue Enbrel and begin Orencia. Long-Term (Current) Use of MTX/Enbrel 07/31/2010 09/11/2010 Rheumatoid Arthritis RF+ on MTX/Remicade/pred 08/09/20 08 06/19/2010 Overview (08/09/2008): Active synovitis despite high dose injectable methotrexate and high drake Remicade and still requiring low dose prednisone. Long-Term (Current) Use of MTX/Remicade 08/09/2008 07/31/2010 Rheumatoid arthritis(714.0) 08/09/2008 Encounter for long-term (cur rent) use of other medications 08/09/2008 Immunizations Immunization Administration Dates Next Due (PNEUMOVAX 23)(50 YRS UP) PN EUMOCOCCAL POLYSACCHARIDE (PPV23) 0.5 ML, IM 08/09/2008 Influenza Vaccine Split 3+ Yrs IM 06/19/2010,08/2008,08/09/2008 Family History Medical History Relation Name Comments Healthy Brother Shimon Heart Disease Father Gurpreet Arthritis-osteo Sister Mildred Healthy Sister Mildred Healthy Son 1 Nicolas Healthy Son 2 Daniel Healthy Son 3 Marvin Relation Name Status Comments Brother Shimon Alive Father Gurpreet Alive Mother Milagro Alive early stsage al zheimer's Sister Mildred Alive Son 1 Nicolas Alive Son 2 Daniel Alive Son 3 Marvin Alive Social History Tobacco Use Types Packs/Day Years Used Date Smoking Tobacco: Every Day Cigarettes Comments:pt is quiting again Alcohol Use Standard Drinks/Week Comments Yes 0 (1 standard drink = 0.6 oz pur e alcohol) once a year glass of wine Comments No Sex and Gender Information Value Date Recorded Sex Assigned at Not on file Legal Sex Female 5:44 AM GRAPHIC SPECIALIST Gender Identity Not on file Sexual Orientation Not on file Occupation Industry Job Start Date Job End Date Not on file Not on file Not on file Not on file Last Filed Vital Signs Vital Sign Reading Time Taken Comments Blood Pressure 118/72 04/11/2013 11:43 AM CDT Pulse 61 04/12/2012 11:45 AM CDT Temperature 36.6 C (97.8 F) 04/11/2013 11:43 AM CDT Respiratory Rate - - Oxygen Saturation - - Inhaled Oxygen Concentration - - Weight 66.2 kg (146 lb) 04/11/2013 11:43 AM CDT Height 160 cm (5' 3 ) 04/11/2013 11:43 AM CDT Body Mass Index 25.86 04/11/2013 11:43 AM CDT Plan of Treatment Health Maintenance Due Date Last Done Comments DTAP/TDAP/TD VACCINES (1 - Tdap) 1982 HPV/Cotest (21-29) 1984 CERVICAL CANCER SCREENING 1993 HPV/Cotest (30-65) 1993 PAP SMEAR 1993 BREAST CANCER SCREENING 2003 COLORECTAL SCREENING 2008 Colorectal Cancer Screening 2008 FIT-DNA Q 3 years 2008 FIT/FOBT Q 1 year 2008 Flex Sig/CT Colonography Q 5 years 2008 ZOSTER VACCINE (1 of 2) 2013 INFLUENZA VACCINE (#1) 2025 0, 05/30/2009, 08/09/2008 RSV VACCINE (60+ or ) (1 - 1-dose 75+ series) 2038 Insurance MEDICAID [place] Care Teams Photo Technician Relationship Specialty Start Date End Date Inga Sullivan NP [facility] [place] [address] PCP - General 09/20/08
--- OUTSIDE RECORDS SUMMARY | 2025-03-19 07:10 | XMS_ITS | Encounter Summary ---
Author Organization [facility] Address [address] [place] [address] Care Team Providers Care Still Operator Name Role Phone Inga Sullivan SPINE NURSE Primary Care Provider [phone] Encounter Details Date Type Department Care Team (Late st Contact Info) Description 01/26/2003 Outpatient Historical [facility] Rheumatology- [place] Ravindra [place] [address] [place] [address] Randy Díaz, [address] [facility] [address] [place] [address] RHEUMATOID ARTHRITIS (CMS/[facility]) (Primary Dx); AFTERCARE SUPERVISOR COMMUNICATIONS AND SIGNALS USE MEDICATN Social History Tobacco Use Types Packs/Day Years Used Date Smoking Tobacco: Never Assessed Comments Unknown Sex and Gender Information Value Date Recorded Sex Assigned at Not on file Legal Sex Female 5:44 AM RAG CUTTING MACHINE TENDER Gender Identity Not on file Sexual Orientation Not on file documented as of this encounter Plan of Treatment Not on file documented as of this encounter Visit Diagnoses Diagnosis Rheumatoid arthritis(714.0) (CMS/HCC)- Primary Rheumatoid arthritis Encounter for long-term (current) use of other medications documented in this encounter Care Teams Still Operator Relationship Specialty Start Date End Date Inga Sullivan NP [address] [place] [id number] PCP - General 09/20/08 documented as of this encounter
--- OUTSIDE RECORDS SUMMARY | 2025-03-19 07:10 | XMS_ITS | Encounter Summary ---
Author Organization [facility] Address [address] [place] [address] Care Team Providers Care Electric Motor Tester Assembler Name Role Phone Inga Sullivan MATERIAL SCHEDULER Primary Care Provider [phone] Encounter Details Date Type Department Care Team (Late st Contact Info) Description 02/15/2006 Outpatient Historical [facility] Rheumatology- [facility] [place] [address] [place] [address] Randy Díaz, [address] [facility] [address] [place] [address] Rheumatoid Arthritis (CMS/[facility]) (Primary Dx); Encounter for Long-Term (Current) Use of Other Medications Social History Tobacco Use Types Packs/Day Years Used Date Smoking Tobacco: Never Assessed Comments Unknown Sex and Gender Information Value Date Recorded Sex Assigned at Not on file Legal Sex Female 5:44 AM GRAPHIC USER INTERFACE DESIGNER Gender Identity Not on file Sexual Orientation Not on file documented as of this encounter Plan of Treatment Not on file documented as of this encounter Visit Diagnoses Diagnosis Rheumatoid arthritis(714.0) (CMS/HCC)- Primary Rheumatoid arthritis Encounter for long-term (current) use of other medications documented in this encounter Care Teams Electric Motor Tester Assembler Relationship Specialty Start Date End Date Inga Sullivan, AL[place] [address] [place] [address] PCP - General 09/20/08 documented as of this encounter
--- OUTSIDE RECORDS SUMMARY | 2025-03-19 07:10 | XMS_ITS | Encounter Summary ---
Author Organization [facility] Address [address] [place] [address] Care Team Providers Care Refiner Operator Name Role Phone Inga Sullivan CUSTOM CAR BUILDER Primary Care Provider [phone] Encounter Details Date Type Department Care Team (Late st Contact Info) Description 08/02/2006 Outpatient Historical [facility] Rheumatology- [facility] [place] [address] [place] [address] Randy Díaz, [address] [facility] [address] [place] [address] Rheumatoid Arthritis (CMS/[facility]) (Primary Dx); Encounter for Long-Term (Current) Use of Other Medications Social History Tobacco Use Types Packs/Day Years Used Date Smoking Tobacco: Never Assessed Comments Unknown Sex and Gender Information Value Date Recorded Sex Assigned at Not on file Legal Sex Female 5:44 AM FAST FOOD FRY COOK Gender Identity Not on file Sexual Orientation Not on file documented as of this encounter Plan of Treatment Not on file documented as of this encounter Visit Diagnoses Diagnosis Rheumatoid arthritis(714.0) (CMS/HCC)- Primary Rheumatoid arthritis Encounter for long-term (current) use of other medications documented in this encounter Care Teams Refiner Operator Relationship Specialty Start Date End Date Inga Sullivan, AL[place] [address] [place] [id number] PCP - General 09/20/08 documented as of this encounter
--- OUTSIDE RECORDS SUMMARY | 2025-03-19 07:10 | XMS_ITS | Encounter Summary ---
Author Organization [facility] Address [address] [place] [address] Care Team Providers Care Transmission Worker Name Role Phone Inga Sullivan BAD CREDIT COLLECTOR Primary Care Provider [phone] Encounter Details Date Type Department Care Team (Late st Contact Info) Description 05/09/2007 Outpatient Historical [facility] Rheumatology- [facility] [place] [address] [place] [address] Randy Díaz, [address] [facility] [address] [place] [address] Rheumatoid Arthritis (CMS/[facility]) (Primary Dx); Encounter for Long-Term (Current) Use of Other Medications Social History Tobacco Use Types Packs/Day Years Used Date Smoking Tobacco: Never Assessed Comments Unknown Sex and Gender Information Value Date Recorded Sex Assigned at Not on file Legal Sex Female 5:44 AM BRIGHT CUTTER Gender Identity Not on file Sexual Orientation Not on file documented as of this encounter Plan of Treatment Not on file documented as of this encounter Visit Diagnoses Diagnosis Rheumatoid arthritis(714.0) (CMS/HCC)- Primary Rheumatoid arthritis Encounter for long-term (current) use of other medications documented in this encounter Care Teams Transmission Worker Relationship Specialty Start Date End Date Inga Sullivan, AL[place] [address] [place] [address] PCP - General 09/20/08 documented as of this encounter
--- OUTSIDE RECORDS SUMMARY | 2025-03-19 07:10 | XMS_ITS | Encounter Summary ---
Author Organization [facility] Address [address] [place] [address] Care Team Providers Care Metal Pattern Maker Name Role Phone Inga Sullivan SENIOR SALESFORCE DEVELOPER Primary Care Provider [phone] Encounter Details Date Type Department Care Team (Late st Contact Info) Description 12/21/2005 Outpatient Historical [facility] Rheumatology- [facility] [place] [address] [place] [address] Randy Díaz, [address] [facility] [address] [place] [address] Rheumatoid Arthritis (CMS/[facility]) (Primary Dx); Encounter for Long-Term (Current) Use of Other Medications Social History Tobacco Use Types Packs/Day Years Used Date Smoking Tobacco: Never Assessed Comments Unknown Sex and Gender Information Value Date Recorded Sex Assigned at Not on file Legal Sex Female 5:44 AM SENIOR DB2 SYSTEMS PROGRAMMER Gender Identity Not on file Sexual Orientation Not on file documented as of this encounter Plan of Treatment Not on file documented as of this encounter Visit Diagnoses Diagnosis Rheumatoid arthritis(714.0) (CMS/HCC)- Primary Rheumatoid arthritis Encounter for long-term (current) use of other medications documented in this encounter Care Teams Metal Pattern Maker Relationship Specialty Start Date End Date Inga Sullivan, AL[place] [address] [place] [id number] PCP - General 09/20/08 documented as of this encounter
--- OUTSIDE RECORDS SUMMARY | 2025-03-19 07:10 | XMS_ITS | Encounter Summary ---
Author Organization [facility] Address [address] [place] [address] Care Team Providers Care Insulation Hoseman Name Role Phone Inga Sullivan FILLER PICKER Primary Care Provider [phone] Encounter Details Date Type Department Care Team (Late st Contact Info) Description 09/01/2005 Outpatient Historical [facility] Rheumatology- [place] Ravindra [place] [address] [place] [address] Randy Díaz, [address] [facility] [address] [place] [address] RHEUMATOID ARTHRITIS (CMS/[facility]) (Primary Dx); AFTERCARE CHLORINATOR OPERATOR USE MEDICATN Social History Tobacco Use Types Packs/Day Years Used Date Smoking Tobacco: Never Assessed Comments Unknown Sex and Gender Information Value Date Recorded Sex Assigned at Not on file Legal Sex Female 5:44 AM MARINE CARGO SPECIALIST Gender Identity Not on file Sexual Orientation Not on file documented as of this encounter Plan of Treatment Not on file documented as of this encounter Visit Diagnoses Diagnosis Rheumatoid arthritis(714.0) (CMS/HCC)- Primary Rheumatoid arthritis Encounter for long-term (current) use of other medications documented in this encounter Care Teams Insulation Hoseman Relationship Specialty Start Date End Date Inga Sullivan NP [address] [place] [address] PCP - General 09/20/08 documented as of this encounter
--- OUTSIDE RECORDS SUMMARY | 2025-03-19 07:10 | XMS_ITS | Encounter Summary ---
Author Organization [facility] Address [address] [place] [address] Care Team Providers Care Network Cabler Name Role Phone Inga Sullivan MARINE SURVEYOR Primary Care Provider [phone] Encounter Details Date Type Department Care Team (Late st Contact Info) Description 10/26/2005 Outpatient Historical [facility] Rheumatology- [place] Ravindra [place] [address] [place] [address] Randy Díaz, [address] [facility] [address] [place] [address] RHEUMATOID ARTHRITIS (CMS/[facility]) (Primary Dx); AFTERCARE ELECTRIC DETECTOR OPERATOR USE MEDICATN Social History Tobacco Use Types Packs/Day Years Used Date Smoking Tobacco: Never Assessed Comments Unknown Sex and Gender Information Value Date Recorded Sex Assigned at Not on file Legal Sex Female 5:44 AM PARTS PROFESSIONAL Gender Identity Not on file Sexual Orientation Not on file documented as of this encounter Plan of Treatment Not on file documented as of this encounter Visit Diagnoses Diagnosis Rheumatoid arthritis(714.0) (CMS/HCC)- Primary Rheumatoid arthritis Encounter for long-term (current) use of other medications documented in this encounter Care Teams Network Cabler Relationship Specialty Start Date End Date Inga Sullivan NP [address] [place] [id number] PCP - General 09/20/08 documented as of this encounter
--- OUTSIDE RECORDS SUMMARY | 2025-03-19 07:10 | XMS_ITS | Encounter Summary ---
Author Organization [facility] Address [address] [place] [address] Care Team Providers Care Admissions Nurse Name Role Phone Inga Sullivan GROUND INTELLIGENCE OFFICER Primary Care Provider [phone] Encounter Details Date Type Department Care Team (Late st Contact Info) Description 04/12/2006 Outpatient Historical [facility] Rheumatology- [facility] [place] [address] [place] [address] Randy Díaz, [address] [facility] [address] [place] [address] Rheumatoid Arthritis (CMS/[facility]) (Primary Dx); Encounter for Long-Term (Current) Use of Other Medications Social History Tobacco Use Types Packs/Day Years Used Date Smoking Tobacco: Never Assessed Comments Unknown Sex and Gender Information Value Date Recorded Sex Assigned at Not on file Legal Sex Female 5:44 AM FREIGHT TRUCKER Gender Identity Not on file Sexual Orientation Not on file documented as of this encounter Plan of Treatment Not on file documented as of this encounter Visit Diagnoses Diagnosis Rheumatoid arthritis(714.0) (CMS/HCC)- Primary Rheumatoid arthritis Encounter for long-term (current) use of other medications documented in this encounter Care Teams Admissions Nurse Relationship Specialty Start Date End Date Inga Sullivan, AL[place] [address] [place] [address] PCP - General 09/20/08 documented as of this encounter
--- OUTSIDE RECORDS SUMMARY | 2025-03-19 07:10 | XMS_ITS | Encounter Summary ---
Author Organization [facility] Address [address] [place] [address] Care Team Providers Care Molding Room Supervisor Name Role Phone Inga Sullivan YARD DRIVER Primary Care Provider [phone] Encounter Details Date Type Department Care Team (Late st Contact Info) Description 03/12/2005 Outpatient Historical [facility] Rheumatology- [place] Ravindra [place] [address] [place] [address] Randy Díaz, [address] [facility] [address] [place] [address] RHEUMATOID ARTHRITIS (CMS/[facility]) (Primary Dx); AFTERCARE YEAST DISTILLER USE MEDICATN Social History Tobacco Use Types Packs/Day Years Used Date Smoking Tobacco: Never Assessed Comments Unknown Sex and Gender Information Value Date Recorded Sex Assigned at Not on file Legal Sex Female 5:44 AM CUSTOMER SUPPORT EXECUTIVE Gender Identity Not on file Sexual Orientation Not on file documented as of this encounter Plan of Treatment Not on file documented as of this encounter Visit Diagnoses Diagnosis Rheumatoid arthritis(714.0) (CMS/HCC)- Primary Rheumatoid arthritis Encounter for long-term (current) use of other medications documented in this encounter Care Teams Molding Room Supervisor Relationship Specialty Start Date End Date Inga Sullivan NP [address] [place] [address] PCP - General 09/20/08 documented as of this encounter
--- OUTSIDE RECORDS SUMMARY | 2025-03-19 07:10 | XMS_ITS | Encounter Summary ---
Author Organization [facility] Address [address] [place] [address] Care Team Providers Care Rn Rehabilitation Name Role Phone Inga Sullivan MANUFACTURING OPERATOR Primary Care Provider [phone] Encounter Details Date Type Department Care Team (Late st Contact Info) Description 05/11/[address] [facility] Rheumatology- [place] Ravindra [place] [address] [place] [address] Randy Díaz, [address] [facility] [address] [place] [address] RHEUMATOID ARTHRITIS (CMS/[facility]) (Primary Dx); AFTERCARE MECHANICAL SOUND TECHNICIAN USE MEDICATN Social History Tobacco Use Types Packs/Day Years Used Date Smoking Tobacco: Never Assessed Comments Unknown Sex and Gender Information Value Date Recorded Sex Assigned at Not on file Legal Sex Female 5:44 AM GASTROENTEROLOGY TECHNICIAN Gender Identity Not on file Sexual Orientation Not on file documented as of this encounter Plan of Treatment Not on file documented as of this encounter Visit Diagnoses Diagnosis Rheumatoid arthritis(714.0) (CMS/HCC)- Primary Rheumatoid arthritis Encounter for long-term (current) use of other medications documented in this encounter Care Teams Rn Rehabilitation Relationship Specialty Start Date End Date Inga Sullivan NP [address] [place] [address] PCP - General 09/20/08 documented as of this encounter
--- OUTSIDE RECORDS SUMMARY | 2025-03-19 07:10 | XMS_ITS | Encounter Summary ---
Author Organization [facility] Address [address] [place] [address] Care Team Providers Care Stretcher Leveler Operator Helper Name Role Phone Inga Sullivan TRANSITION NURSE Primary Care Provider [phone] Encounter Details Date Type Department Care Team (Late st Contact Info) Description 10/26/[address] [facility] Rheumatology- [facility] [place] [address] [place] [address] Randy Díaz, DO [address] [facility] [address] [place] [address] RHEUMATOID ARTHRITIS (CMS/HCC) (Primary Dx); MALAISE AND FATIGUE NEC; AFTERCARE [facility] USE MEDICATN Social History Tobacco Use Types Packs/Day Years Used Date Smoking Tobacco: Never Assessed Comments Unknown Sex and Gender Information Value Date Recorded Sex Assigned at Not on file Legal Sex Female 5:44 AM GRAVEL HAULER Gender Identity Not on file Sexual Orientation Not on file documented as of this encounter Plan of Treatment Not on file documented as of this encounter Visit Diagnoses Diagnosis Rheumatoid arthritis(714.0) (CMS/HCC)- Primary Rheumatoid arthritis Other malaise and fatigue Encounter for long-term (current) use of other medications documented in this encounter Care Teams Stretcher Leveler Operator Helper Relationship Specialty Start Date End Date Inga Sullivan, TRANSITION NURSE [address] [place] [address] PCP - General 09/20/08 documented as of this encounter
--- OUTSIDE RECORDS SUMMARY | 2025-03-19 07:10 | XMS_ITS | Encounter Summary ---
Author Organization [facility] Address [address] [place] [address] Care Team Providers Care Fashion Marketer Name Role Phone Inga Sullivan FLASK FITTER Primary Care Provider [phone] Encounter Details Date Type Department Care Team (Late st Contact Info) Description 03/12/2005 Outpatient Historical [facility] Rheumatology- [place] Ravindra [place] [address] [place] [address] Randy Díaz, DO [address] [facility] [address] [place] [address] JOINT PAIN-MULT JTS (Primary Dx); RHEUMATOID ARTHRITIS (CMS/HCC); AFTERCARE GROUP HOME USE MEDICATN Social History Tobacco Use Types Packs/Day Years Used Date Smoking Tobacco: Never Assessed Comments Unknown Sex and Gender Information Value Date Recorded Sex Assigned at Not on file Legal Sex Female 5:44 AM CHAINSTITCH FELLED SEAM OPERATOR Gender Identity Not on file Sexual Orientation Not on file documented as of this encounter Plan of Treatment Not on file documented as of this encounter Visit Diagnoses Diagnosis Pain in joint, multiple sites- Primary Rheumatoid arthritis(714.0) (CMS/HCC) Rheumatoid arthritis Encounter for long-term (current) use of other medications documented in this encounter Care Teams Fashion Marketer Relationship Specialty Start Date End Date Inga Sullivan, FLASK FITTER [address] [place] [address] PCP - General 09/20/08 documented as of this encounter
--- OUTSIDE RECORDS SUMMARY | 2025-03-19 07:10 | XMS_ITS | Encounter Summary ---
Author Organization [facility] Address [address] [place] [address] Care Team Providers Care Splitting Machine Operator Helper Name Role Phone Inga Sullivan CLAY PLANT TREATER Primary Care Provider [phone] Encounter Details Date Type Department Care Team (Late st Contact Info) Description 01/17/2007 Outpatient Historical [facility] Rheumatology- [facility] [place] [address] [place] [address] Randy Díaz, [address] [facility] [address] [place] [address] Rheumatoid Arthritis (CMS/[facility]) (Primary Dx); Encounter for Long-Term (Current) Use of Other Medications Social History Tobacco Use Types Packs/Day Years Used Date Smoking Tobacco: Never Assessed Comments Unknown Sex and Gender Information Value Date Recorded Sex Assigned at Not on file Legal Sex Female 5:44 AM RUG FRAME MOUNTER Gender Identity Not on file Sexual Orientation Not on file documented as of this encounter Plan of Treatment Not on file documented as of this encounter Visit Diagnoses Diagnosis Rheumatoid arthritis(714.0) (CMS/HCC)- Primary Rheumatoid arthritis Encounter for long-term (current) use of other medications documented in this encounter Care Teams Splitting Machine Operator Helper Relationship Specialty Start Date End Date Inga Sullivan, AL[place] [address] [place] [address] PCP - General 09/20/08 documented as of this encounter
--- OUTSIDE RECORDS SUMMARY | 2025-03-19 07:10 | XMS_ITS | Encounter Summary ---
Author Organization [facility] Address [address] [place] [address] Care Team Providers Care Information Security Associate Name Role Phone Inga Sullivan SUPERVISOR TRAVEL TRAILER Primary Care Provider [phone] Encounter Details Date Type Department Care Team (Latest Contact Info) Description 03/14/2007 Outpatient Historical [facility] Rheumatology- [place] Ravindra [place] [address] [place] [address] Randy Díaz, DO [address] [facility] [address] [place] [address] Rheumatoid Arthritis (CMS/[facility]) (Primary Dx); Encounter for Long-Term (Current) Use of Other Medications; Screening Examination for Pulmonary Tuberculosis Social History Tobacco Use Types Packs/Day Years Used Date Smoking Tobacco: Never Assessed Comments Unknown Sex and Gender Information Value Date Recorded Sex Assigned at Not on file Legal Sex Female 5:44 AM ORNAMENTAL IRONWORKING SUPERVISOR Gender Identity Not on file Sexual Orientation Not on file documented as of this encounter Plan of Treatment Not on file documented as of this encounter Visit Diagnoses Diagnosis Rheumatoid arthritis(714.0) (CMS/HCC)- Primary Rheumatoid arthritis Encounter for long-term (current) use of other medications Screening examination for pulmonary tuberculosis documented in this encounter Care Teams Information Security Associate Relationship Specialty Start Date End Date Inga Sullivan, ALCON [facility] [place] [address] PCP - General 09/20/08 documented as of this encounter
--- OUTSIDE RECORDS SUMMARY | 2025-03-19 07:10 | XMS_ITS | Encounter Summary ---
Author Organization [facility] Address [address] [place] [address] Care Team Providers Care Hotel Server Name Role Phone Inga Sullivan TEST PULLER Primary Care Provider [phone] Encounter Details Date Type Department Care Team (Latest Contact Info) Description 04/12/2006 Outpatient Historical [facility] Rheumatology- [place] Rav[facility] [address] [place] [address] Randy Díaz, DO [address] [facility] [address] [place] [address] Rheumatoid Arthritis (CMS/[facility]) (Primary Dx); Nausea with Vomiting; Encounter for Long-Term (Current) Use of Other Medications; Screening Examination for Pulmonary Tuberculosis Social History Tobacco Use Types Packs/Day Years Used Date Smoking Tobacco: Never Assessed Comments Unknown Sex and Gender Information Value Date Recorded Sex Assigned at Not on file Legal Sex Female 5:44 AM HAIR PREPARER Gender Identity Not on file Sexual Orientation Not on file documented as of this encounter Plan of Treatment Not on file documented as of this encounter Visit Diagnoses Diagnosis Rheumatoid arthritis(714.0) (CMS/HCC)- Primary Rheumatoid arthritis Nausea with vomiting Encounter for long-term (current) use of other medications Screening examination for pulmonary tuberculosis documented in this encounter Care Teams Hotel Server Relationship Specialty Start Date End Date Inga Sullivan, TEST PULLER [address] [place] [address] PCP - General 09/20/08 documented as of this encounter
--- OUTSIDE RECORDS SUMMARY | 2025-03-19 07:10 | XMS_ITS | Encounter Summary ---
Author Organization [facility] Address [address] [place] [address] Care Team Providers Care Engineering Test Mechanic Name Role Phone Inga Sullivan TRANSPORT AIDE Primary Care Provider [phone] Encounter Details Date Type Department Care Team (Late st Contact Info) Description 07/14/2005 Outpatient Historical [facility] Rheumatology- [facility] [place] [address] [place] [address] Randy Díaz, [address] [facility] [address] [place] [address] RHEUMATOID ARTHRITIS (CMS/[facility]) (Primary Dx); AFTERCARE ELECTRONIC DIE MAKER USE MEDICATN Social History Tobacco Use Types Packs/Day Years Used Date Smoking Tobacco: Never Assessed Comments Unknown Sex and Gender Information Value Date Recorded Sex Assigned at Not on file Legal Sex Female 5:44 AM GAS APPLIANCE MECHANIC Gender Identity Not on file Sexual Orientation Not on file documented as of this encounter Plan of Treatment Not on file documented as of this encounter Visit Diagnoses Diagnosis Rheumatoid arthritis(714.0) (CMS/HCC)- Primary Rheumatoid arthritis Encounter for long-term (current) use of other medications documented in this encounter Care Teams Engineering Test Mechanic Relationship Specialty Start Date End Date Inga Sullivan NP [address] [place] [address] PCP - General 09/20/08 documented as of this encounter
--- OUTSIDE RECORDS SUMMARY | 2025-03-19 07:10 | XMS_ITS | Encounter Summary ---
Author Organization [facility] Address [address] [place] [address] Care Team Providers Care Packaging Line Operator Name Role Phone Inga Sullivan IGNITION SPECIALIST Primary Care Provider [phone] Encounter Details Date Type Department Care Team (Late st Contact Info) Description 09/07/2007 Outpatient Historical [facility] Rheumatology- [facility] [place] [address] [place] [address] Randy Díaz, DO [address] [facility] [address] [place] [address] Social History Tobacco Use Types Packs/Day Years Used Date Smoking Tobacco: Never Assessed Comments Unknown Sex and Gender Information Value Date Recorded Sex Assigned at Not on file Legal Sex Female 5:44 AM HEAVY COIL WINDER Gender Identity Not on file Sexual Orientation Not on file documented as of this encounter Plan of Treatment Not on file documented as of this encounter Visit Diagnoses Not on filedocumented in this encounter Care Teams Packaging Line Operator Relationship Specialty Start Date End Date Inga Sullivan NP [address] [place] [address] PCP - General 09/20/08 documented as of this encounter
--- OUTSIDE RECORDS SUMMARY | 2025-03-19 07:10 | XMS_ITS | Encounter Summary ---
Author Organization [facility] Address [address] [place] [address] Care Team Providers Care Community Midwife Name Role Phone Inga Sullivan REGIONAL TRUCK DRIVER Primary Care Provider [phone] Encounter Details Date Type Department Care Team (Late st Contact Info) Description 09/27/2006 Outpatient Historical [facility] Rheumatology- [facility] [place] [address] [place] [address] Randy Díaz, [address] [facility] [address] [place] [address] Rheumatoid Arthritis (CMS/[facility]) (Primary Dx); Encounter for Long-Term (Current) Use of Other Medications Social History Tobacco Use Types Packs/Day Years Used Date Smoking Tobacco: Never Assessed Comments Unknown Sex and Gender Information Value Date Recorded Sex Assigned at Not on file Legal Sex Female 5:44 AM ASSISTANT CORPORATE SECRETARY Gender Identity Not on file Sexual Orientation Not on file documented as of this encounter Plan of Treatment Not on file documented as of this encounter Visit Diagnoses Diagnosis Rheumatoid arthritis(714.0) (CMS/HCC)- Primary Rheumatoid arthritis Encounter for long-term (current) use of other medications documented in this encounter Care Teams Community Midwife Relationship Specialty Start Date End Date Inga Sullivan, ALCON [address] [place] [address] PCP - General 09/20/08 documented as of this encounter
--- OUTSIDE RECORDS SUMMARY | 2025-03-19 07:10 | XMS_ITS | Encounter Summary ---
Author Organization [facility] Address [address] [place] [address] Care Team Providers Care Independent Film Maker Name Role Phone Inga Sullivan JAVA ANALYST Primary Care Provider [phone] Encounter Details Date Type Department Care Team (Late st Contact Info) Description 09/27/2006 Outpatient Historical [facility] Rheumatology- [facility] [place] [address] [place] [address] Randy Díaz, [address] [facility] [address] [place] [address] Rheumatoid Arthritis (CMS/[facility]) (Primary Dx); Encounter for Long-Term (Current) Use of Other Medications Social History Tobacco Use Types Packs/Day Years Used Date Smoking Tobacco: Never Assessed Comments Unknown Sex and Gender Information Value Date Recorded Sex Assigned at Not on file Legal Sex Female 5:44 AM MANAGER SOFTWARE DEVELOPMENT Gender Identity Not on file Sexual Orientation Not on file documented as of this encounter Plan of Treatment Not on file documented as of this encounter Visit Diagnoses Diagnosis Rheumatoid arthritis(714.0) (CMS/HCC)- Primary Rheumatoid arthritis Encounter for long-term (current) use of other medications documented in this encounter Care Teams Independent Film Maker Relationship Specialty Start Date End Date Inga Sullivan, ALCON [address] [place] [address] PCP - General 09/20/08 documented as of this encounter
--- OUTSIDE RECORDS SUMMARY | 2025-03-19 07:10 | XMS_ITS | Encounter Summary ---
Author Organization [facility] Address [address] [place] [address] Care Team Providers Care Awning Craftsperson Name Role Phone Inga Sullivan SENIOR WIND TURBINE TECHNICIAN Primary Care Provider [phone] Encounter Details Date Type Department Care Team (Late st Contact Info) Description 07/04/2007 Outpatient Historical [facility] Rheumatology- [facility] [address] [place] [address] Randy Díaz, [address] [facility] [address] [place] [address] Rheumatoid Arthritis (CMS/[facility]) (Primary Dx); Encounter for Long-Term (Current) Use of Other Medications Social History Tobacco Use Types Packs/Day Years Used Date Smoking Tobacco: Never Assessed Comments Unknown Sex and Gender Information Value Date Recorded Sex Assigned at Not on file Legal Sex Female 5:44 AM METAL PICKLING EQUIPMENT OPERATOR Gender Identity Not on file Sexual Orientation Not on file documented as of this encounter Plan of Treatment Not on file documented as of this encounter Visit Diagnoses Diagnosis Rheumatoid arthritis(714.0) (CMS/HCC)- Primary Rheumatoid arthritis Encounter for long-term (current) use of other medications documented in this encounter Care Teams Awning Craftsperson Relationship Specialty Start Date End Date Inga Sullivan, ALCON [address] [place] [id number] PCP - General 09/20/08 documented as of this encounter
--- OUTSIDE RECORDS SUMMARY | 2025-03-19 07:10 | XMS_ITS | Encounter Summary ---
Author Organization [facility] Address [address] [place] [address] Care Team Providers Care Toy Trains And Accessories Salesperson Name Role Phone Inga Sullivan TITLE CHECKER Primary Care Provider [phone] Encounter Details Date Type Department Care Team (Late st Contact Info) Description 05/11/2005 Outpatient Historical [facility] Rheumatology- [place] Ravindra [place] [address] [place] [address] Randy Díaz, [address] [facility] [address] [place] [address] RHEUMATOID ARTHRITIS (CMS/[facility]) (Primary Dx); AFTERCARE ENTERPRISE APPLICATION ANALYST USE MEDICATN Social History Tobacco Use Types Packs/Day Years Used Date Smoking Tobacco: Never Assessed Comments Unknown Sex and Gender Information Value Date Recorded Sex Assigned at Not on file Legal Sex Female 5:44 AM SEGMENTAL WALL INSTALLER Gender Identity Not on file Sexual Orientation Not on file documented as of this encounter Plan of Treatment Not on file documented as of this encounter Visit Diagnoses Diagnosis Rheumatoid arthritis(714.0) (CMS/HCC)- Primary Rheumatoid arthritis Encounter for long-term (current) use of other medications documented in this encounter Care Teams Toy Trains And Accessories Salesperson Relationship Specialty Start Date End Date Inga Sullivan NP [address] [place] [address] PCP - General 09/20/08 documented as of this encounter
--- OUTSIDE RECORDS SUMMARY | 2025-03-19 07:10 | XMS_ITS | Encounter Summary ---
Author Organization [facility] Address [address] [place] [address] Care Team Providers Care Steel Sampler Name Role Phone Inga Sullivan BRIM STITCHER Primary Care Provider [phone] Encounter Details Date Type Department Care Team (Late st Contact Info) Description 11/22/2006 Outpatient Historical [facility] Rheumatology- [facility] [place] [address] [place] [address] Randy Díaz, [address] [facility] [address] [place] [address] Rheumatoid Arthritis (CMS/[facility]) (Primary Dx); Encounter for Long-Term (Current) Use of Other Medications Social History Tobacco Use Types Packs/Day Years Used Date Smoking Tobacco: Never Assessed Comments Unknown Sex and Gender Information Value Date Recorded Sex Assigned at Not on file Legal Sex Female 5:44 AM ORTHOTICS PROSTHETICS ASSISTANT Gender Identity Not on file Sexual Orientation Not on file documented as of this encounter Plan of Treatment Not on file documented as of this encounter Visit Diagnoses Diagnosis Rheumatoid arthritis(714.0) (CMS/HCC)- Primary Rheumatoid arthritis Encounter for long-term (current) use of other medications documented in this encounter Care Teams Steel Sampler Relationship Specialty Start Date End Date Inga Sullivan, ALCON [address] [place] [address] PCP - General 09/20/08 documented as of this encounter
--- OUTSIDE RECORDS SUMMARY | 2025-03-19 07:10 | XMS_ITS | Encounter Summary ---
Author Organization [facility] Address [address] [place] [address] Care Team Providers Care Grades 9 12 Tutor Name Role Phone Inga Sullivan SPLUNK ARCHITECT Primary Care Provider [phone] Encounter Details Date Type Department Care Team (Late st Contact Info) Description 03/14/2007 Outpatient Historical [facility] Rheumatology- [facility] [place] [address] [place] [address] Randy Díaz, [address] [facility] [address] [place] [address] Rheumatoid Arthritis (CMS/[facility]) (Primary Dx); Encounter for Long-Term (Current) Use of Other Medications Social History Tobacco Use Types Packs/Day Years Used Date Smoking Tobacco: Never Assessed Comments Unknown Sex and Gender Information Value Date Recorded Sex Assigned at Not on file Legal Sex Female 5:44 AM AGILE PROJECT MANAGER Gender Identity Not on file Sexual Orientation Not on file documented as of this encounter Plan of Treatment Not on file documented as of this encounter Visit Diagnoses Diagnosis Rheumatoid arthritis(714.0) (CMS/HCC)- Primary Rheumatoid arthritis Encounter for long-term (current) use of other medications documented in this encounter Care Teams Grades 9 12 Tutor Relationship Specialty Start Date End Date Inga Sullivan, ALCON [address] [place] [address] PCP - General 09/20/08 documented as of this encounter
--- OUTSIDE RECORDS SUMMARY | 2025-03-19 07:11 | XMS_ITS | Encounter Summary ---
Author Organization [facility] Address [address] [place] [address] Care Team Providers Care Research Quality Assurance Specialist Name Role Phone Inga Sullivan IRON MINER Primary Care Provider [phone] Encounter Details Date Type Department Care Team (Late st Contact Info) Description 02/19/2004 Outpatient Historical [facility] Rheumatology- [place] Ravindra [place] [address] [place] [address] Randy Díaz, [address] [facility] [address] [place] [phone] RHEUMATOID ARTHRITIS (CMS/[facility]) (Primary Dx); AFTERCARE RAKING MACHINE OPERATOR USE MEDICATN Social History Tobacco Use Types Packs/Day Years Used Date Smoking Tobacco: Never Assessed Comments Unknown Sex and Gender Information Value Date Recorded Sex Assigned at Not on file Legal Sex Female 5:44 AM MOVERS Gender Identity Not on file Sexual Orientation Not on file documented as of this encounter Plan of Treatment Not on file documented as of this encounter Visit Diagnoses Diagnosis Rheumatoid arthritis(714.0) (CMS/HCC)- Primary Rheumatoid arthritis Encounter for long-term (current) use of other medications documented in this encounter Care Teams Research Quality Assurance Specialist Relationship Specialty Start Date End Date Inga Sullivan NP [address] [place] [address] PCP - General 09/20/08 documented as of this encounter
--- OUTSIDE RECORDS SUMMARY | 2025-03-19 07:11 | XMS_ITS | Encounter Summary ---
Author Organization [facility] Address [address] [place] [address] Care Team Providers Care Secy Name Role Phone Inga Sullivan VENEER REPAIRER MACHINE Primary Care Provider [phone] Encounter Details Date Type Department Care Team (Late st Contact Info) Description 02/19/2004 Outpatient Historical [facility] Rheumatology- [place] Ravindra [place] [address] [place] [address] Randy Díaz, [address] [facility] [address] [place] [phone] RHEUMATOID ARTHRITIS (CMS/[facility]) (Primary Dx); AFTERCARE SURGICAL INSTRUMENT TECHNICIAN USE MEDICATN Social History Tobacco Use Types Packs/Day Years Used Date Smoking Tobacco: Never Assessed Comments Unknown Sex and Gender Information Value Date Recorded Sex Assigned at Not on file Legal Sex Female 5:44 AM MEDIA ACCOUNT EXECUTIVE Gender Identity Not on file Sexual Orientation Not on file documented as of this encounter Plan of Treatment Not on file documented as of this encounter Visit Diagnoses Diagnosis Rheumatoid arthritis(714.0) (CMS/HCC)- Primary Rheumatoid arthritis Encounter for long-term (current) use of other medications documented in this encounter Care Teams Secy Relationship Specialty Start Date End Date Inga Sullivan NP [address] [place] [id number] PCP - General 09/20/08 documented as of this encounter
--- OUTSIDE RECORDS SUMMARY | 2025-03-19 07:11 | XMS_ITS | Encounter Summary ---
Author Organization [facility] Address [address] [place] [address] Care Team Providers Care Tourist Information Officer Name Role Phone Inga Sullivan SFDC SOLUTION ARCHITECT Primary Care Provider [phone] Encounter Details Date Type Department Care Team (Late st Contact Info) Description 08/05/2004 Outpatient Historical [facility] Rheumatology- [place] Ravindra [place] [address] [place] [address] Randy Díaz, [address] [facility] [address] [place] [address] RHEUMATOID ARTHRITIS (CMS/[facility]) (Primary Dx); AFTERCARE TWO WAY RADIO INSTALLER USE MEDICATN Social History Tobacco Use Types Packs/Day Years Used Date Smoking Tobacco: Never Assessed Comments Unknown Sex and Gender Information Value Date Recorded Sex Assigned at Not on file Legal Sex Female 5:44 AM HUSKER OPERATOR Gender Identity Not on file Sexual Orientation Not on file documented as of this encounter Plan of Treatment Not on file documented as of this encounter Visit Diagnoses Diagnosis Rheumatoid arthritis(714.0) (CMS/HCC)- Primary Rheumatoid arthritis Encounter for long-term (current) use of other medications documented in this encounter Care Teams Tourist Information Officer Relationship Specialty Start Date End Date Inga Sullivan NP [address] [place] [address] PCP - General 09/20/08 documented as of this encounter
--- OUTSIDE RECORDS SUMMARY | 2025-03-19 07:11 | XMS_ITS | Encounter Summary ---
Author Organization [facility] Address [address] [place] [address] Care Team Providers Care Life Science Taxonomist Name Role Phone Inga Sullivan CHEMICAL PLANT OPERATOR SUPERVISOR Primary Care Provider [phone] Encounter Details Date Type Department Care Team (Late st Contact Info) Description 10/19/2007 Outpatient Historical [facility] Rheumatology- [facility] [place] [address] [place] [address] Randy Díaz, DO [address] [facility] [address] [place] [address] Social History Tobacco Use Types Packs/Day Years Used Date Smoking Tobacco: Never Assessed Comments Unknown Sex and Gender Information Value Date Recorded Sex Assigned at Not on file Legal Sex Female 5:44 AM LOGGER DRIVING HORSES Gender Identity Not on file Sexual Orientation Not on file documented as of this encounter Progress Notes * Randy Díaz, - 10/19/2007 12:00 AM CST Patient Name: Noemi Quick DOS: 10/19/2007 : 1965 RHEUMATOLOGY FOLLOWUP SUBJECTIVE: Ms. Quick returns today for additional followup after recent dose adjustment of her methotrexate to 25 mg subcutaneous injection weekly and change in Remicade infusion schedule to 500 mgdosing per infusion q.6 weeks. She does report that she has felt somewhat improved up until approximately one week ago when she began noticing some increasing swelling over the PIP finger joint. Overall though much improved and seems to be tolerating the medication well without any identified problem thus far. She reports only mild degree of salesperson furs stiffness, generally lasting no longer than 15 to 20 minutes presently. CURRENT RHEUMATOLOGIC MEDICATIONS: 1. Methotrexate 25 mg subcutaneous injection q. week. 2. Folic acid 3 mg daily. 3. Prednisone 5 mg q.a.m. 4. Remicade 500 mg IV q.6 weeks and occasional use of hydrocodone as needed for pain. PHYSICAL EXAMINATION: VITAL SIGNS: Temperature 98.2??. Weight: 147 pounds. Blood pressure: 110/68. Heart rate: 76. HEENT: Sclerae are anicteric. No evidence of oral thrush or mucositis is noted. SKIN: No rash. MUSCULOSKELETAL: PIP finger joints with 1+ soft tissue swelling change and a minimal to mild degreeof tenderness. She seems to have increased bilateral hand security services specialist strength. No further tenderness is noted over the MCP finger joints or wrists of either hand. Elbows and shoulders are unremarkable. Knees do not show evidence of soft tissue swelling change. 28 joint count indicates swollen joint count9, tender joint count 8. HEALTH ASSESSMENT QUESTIONNAIRE: Modified total LUCIO disability index score reduced from 2.0 down to1.375. LABORATORY DATA: Reviewed at 09/22/07. Liver panel all within normal limits. CBC - white blood cell count 11,300, hematocrit 44.8%, platelets 163,000. DIAGNOSTIC IMPRESSION: Rheumatoid arthritis appears clinically improved both in terms of symptoms, swollen and tender joint count and modified LUCIO Disability index score. RECOMMENDATIONS: 1. No current change in treatment plan at this point. 2. She will have a CBC and lipid profile repeated later today after her Remicade infusion. 3. Continue to monitor CBC and liver function study monthly while on high dose weekly parenteral methotrexate. 4. Schedule return office appointment in 18 weeks. Randy Díaz D.O., F.A.C.R. Rheumatology Electronically Signed by Randy Díaz D.O. 11/03/2007 09:01 , 9:01 A P, 580 Document #: [id number] cc: Jovani Chavis M.D. ER DRIVING HORSES documented in this encounter Plan of Treatment Not on file documented as of this encounter Procedures Procedure Name Priority Date/Time Associated Diagnosis Comments CBC WITH DIFFERENTIAL Routine 10/19/2007 10:49 AM LOGGER DRIVING HORSES C-REACTIVE PROTEIN Routine 10/19/2007 10 :49 AM LOGGER DRIVING HORSES HEPATIC FUNCTION PANEL Routine 10/19/2007 10:49 AM LOGGER DRIVING HORSES documented in this encounter Results * (ABNORMAL) HEPATIC FUNCTION PANEL (10/19/2007 10:49 AM LOGGER DRIVING HORSES) TOTAL PROTEIN 7.1 5.9 - 8.2 G/DL [facility] ALBUMIN 3.9 3.4 - 4.8 G/DL [facility] AST 19 12 - 32 IU/L [facility] ALT 14 4 - 36 IU/L [facility] ALKALINE PHOSPHATASE 63 35 - 104 IU/L [facility] BILIRUBIN TOTAL 0.1(L) 0.2 - 1.0 MG/DL [facility] BILIRUBIN DIRECT <0.1 0.0 - 0.3 MG/DL [facility] 10/19/2007 10:4 9 AM LOGGER DRIVING HORSES 10/19/2007 10:54 AM LOGGER DRIVING HORSES us Randy Díaz DO CHEMISTRY ORDERABLES Final Res ult [facility]# [id number] [address] [place] [address] * C-REACTIVE PROTEIN (10/19/2007 10:49 AM LOGGER DRIVING HORSES) CRP 0.5 <0.8 MG/DL [facility] CRP <0.8 MG/DL NEGATIVE 0.9- 4.0 MG/DL MILD INFLAMMATION SOME VIRAL INFECTIONS 4.1-20.0 MG/DL ACUTE INFLAMMATION >30.0 MG/DL BACTERIAL INFECTIONS EXTENSIVE TRAUMA THIS IS A STANDARD CRP METHOD, AND IS NOT INTENDED A MARKER FOR HEART DISEASE. THIS TEST CANNOT BE USED TO ASSESS CARDIAC RISK. [facility] 10/19/2007 10:4 9 AM LOGGER DRIVING HORSES 10/19/2007 10:54 AM LOGGER DRIVING HORSES us Randy Díaz DO CHEMISTRY ORDERABLES Final Res ult [facility] CLIA# [id number] [address] [place] [address] * (ABNORMAL) CBC WITH DIFFERENTIAL (10/19/2007 10:49 AM LOGGER DRIVING HORSES) Pathologist [facility] WBC 10.8 4.5 - 11.0 K/UL [facility] RBC 4.51 4.2 - 5.4 M/UL [facility] HEMOGLOBIN 12.6 12.0 - 16.0 G/DL [facility] HEMATOCRIT 39.1 36 - 46 % [facility] MCV 86.7 82 - 100 FL [facility] MCH 27.9 27 - 34 PG [facility] MCHC 32.2 31 - 37 G/DL [facility] RDW 16.2(H) 11 - 14.5 % [facility] PLATELETS 237 140 - 440 K/UL [facility] MPV 9.4 8.9 - 12.8 FL [facility] NEUTROPHILS 52.7 42.2 - 75.2 % [facility] LYMPHOCYTES 38.9 24 - 44 % [facility] MONOCYTES 6.6 2 - 10 % [facility] EOSINOPHILS 1.3 0 - 7 % [facility] BASOPHILS 0.5 0 - 1 % [facility] NEUTROPHIL ABSOLUTE 5.7 1.4 - 6.5 K/uL [facility] LYMPHOCYTE ABSOLUTE 4.2(H) 1.2 - 4.0 K/UL [facility] MONOCYTE ABSOLUTE 0.7(H) 0.1 - 0.6 K/UL [facility] EOSINOPHIL ABSOLUTE 0.1 0 - 0.7 K/UL [facility] BASOPHILS ABSOLUTE 0.1 0 - 0.2 K/UL [facility] 10/19/2007 10:4 9 AM LOGGER DRIVING HORSES 10/19/2007 10:54 AM LOGGER DRIVING HORSES Randy Díaz DO HEMATOLOGY ORDERABLES Final Re sult [facility] CLIA# [id number] [address] [place] [address] documented in this encounter Visit Diagnoses Not on filedocumented in this encounter Care Teams Life Science Taxonomist Relationship Specialty Start Date End Date Inga Sullivan NP [address] [place], [place] [id number] PCP - General 09/20/08 documented as of this encounter
--- OUTSIDE RECORDS SUMMARY | 2025-03-19 07:11 | XMS_ITS | Encounter Summary ---
Author Organization [facility] Address [address] [place] [address] Care Team Providers Care Chauffeur Name Role Phone Inga Sullivan DECKHAND FISHING VESSEL Primary Care Provider Encounter Details Date Type Department Care Team (Late st Contact Info) Description 11/25/2004 Outpatient Historical [facility] Rheumatology- [place] Ravindra [place] [address] [place] [address] Randy Díaz, [address] [facility] [address] [place] [address] RHEUMATOID ARTHRITIS (CMS/[facility]) (Primary Dx); AFTERCARE SALES ASSISTANT ENTERTAINMENT AND MEDIA USE MEDICATN Social History Tobacco Use Types Packs/Day Years Used Date Smoking Tobacco: Never Assessed Comments Unknown Sex and Gender Information Value Date Recorded Sex Assigned at Not on file Legal Sex Female 5:44 AM TOBACCO PACKER Gender Identity Not on file Sexual Orientation Not on file documented as of this encounter Plan of Treatment Not on file documented as of this encounter Visit Diagnoses Diagnosis Rheumatoid arthritis(714.0) (CMS/HCC)- Primary Rheumatoid arthritis Encounter for long-term (current) use of other medications documented in this encounter Care Teams Chauffeur Relationship Specialty Start Date End Date Inga Sullivan NP [address] [place] [address] PCP - General 09/20/08 documented as of this encounter
--- OUTSIDE RECORDS SUMMARY | 2025-03-19 07:11 | XMS_ITS | Encounter Summary ---
Author Organization [facility] Address [address] [place] [address] Care Team Providers Care Clinical Science Liaison Name Role Phone Inga Sullivan SPECIAL EFFECTS SPECIALIST Primary Care Provider Encounter Details Date Type Department Care Team (Late st Contact Info) Description 09/30/2004 Outpatient Historical [facility] Rheumatology- [place] Ravindra [place] [address] [place] [address] Randy Díaz, [address] [facility] [address] [place] [address] RHEUMATOID ARTHRITIS (CMS/[facility]) (Primary Dx); AFTERCARE FRONT END DEVELOPER JAVASCRIPT HTML CSS USE MEDICATN Social History Tobacco Use Types Packs/Day Years Used Date Smoking Tobacco: Never Assessed Comments Unknown Sex and Gender Information Value Date Recorded Sex Assigned at Not on file Legal Sex Female 5:44 AM AUTOMOTIVE SALES SPECIALIST Gender Identity Not on file Sexual Orientation Not on file documented as of this encounter Plan of Treatment Not on file documented as of this encounter Visit Diagnoses Diagnosis Rheumatoid arthritis(714.0) (CMS/HCC)- Primary Rheumatoid arthritis Encounter for long-term (current) use of other medications documented in this encounter Care Teams Clinical Science Liaison Relationship Specialty Start Date End Date Inga Sullivan NP [address] [place] [id number] PCP - General 09/20/08 documented as of this encounter
--- OUTSIDE RECORDS SUMMARY | 2025-03-19 07:11 | XMS_ITS | Encounter Summary ---
Author Organization [facility] Address [address] [place] [address] Care Team Providers Care Firearms Model Maker Name Role Phone Inga Sullivan SOLE BLACKER Primary Care Provider [phone] Encounter Details Date Type Department Care Team (Late st Contact Info) Description 09/07/2007 Outpatient Historical [facility] Rheumatology- [facility] [place] [address] [place] [address] Randy Díaz, DO [address] [facility] [address] [place] [address] Social History Tobacco Use Types Packs/Day Years Used Date Smoking Tobacco: Never Assessed Comments Unknown Sex and Gender Information Value Date Recorded Sex Assigned at Not on file Legal Sex Female 5:44 AM MILITARY NURSE Gender Identity Not on file Sexual Orientation Not on file documented as of this encounter Plan of Treatment Not on file documented as of this encounter Visit Diagnoses Not on filedocumented in this encounter Care Teams Firearms Model Maker Relationship Specialty Start Date End Date Inga Sullivan NP [address] [place] [address] PCP - General 09/20/08 documented as of this encounter
--- OUTSIDE RECORDS SUMMARY | 2025-03-19 07:11 | XMS_ITS | Encounter Summary ---
Author Organization [facility] Address [address] [place] [address] Care Team Providers Care Production Proofreader Name Role Phone Inga Sullivan TIE TAPE MACHINE OPERATOR Primary Care Provider [phone] Encounter Details Date Type Department Care Team (Late st Contact Info) Description 12/31/2004 Outpatient Historical [facility] Rheumatology- [place] Ravindra [place] [address] [place] [address] Randy Díaz, [address] [facility] [address] [place] [address] RHEUMATOID ARTHRITIS (CMS/[facility]) (Primary Dx); AFTERCARE COMPUTER OPERATOR USE MEDICATN Social History Tobacco Use Types Packs/Day Years Used Date Smoking Tobacco: Never Assessed Comments Unknown Sex and Gender Information Value Date Recorded Sex Assigned at Not on file Legal Sex Female 5:44 AM TANKROOM WORKER Gender Identity Not on file Sexual Orientation Not on file documented as of this encounter Plan of Treatment Not on file documented as of this encounter Visit Diagnoses Diagnosis Rheumatoid arthritis(714.0) (CMS/HCC)- Primary Rheumatoid arthritis Encounter for long-term (current) use of other medications documented in this encounter Care Teams Production Proofreader Relationship Specialty Start Date End Date Inga Sullivan NP [address] [place] [address] PCP - General 09/20/08 documented as of this encounter
--- OUTSIDE RECORDS SUMMARY | 2025-03-19 07:11 | XMS_ITS | Encounter Summary ---
Author Organization [facility] Address [address] [place] [address] Care Team Providers Care Clinical Psychologist Private Practice Name Role Phone Inga Sullivan RECEIVER STOCKER Primary Care Provider [phone] Encounter Details Date Type Department Care Team (Late st Contact Info) Description 08/05/2004 Outpatient Historical [facility] Rheumatology- [place] Ravindra [place] [address] [place] [address] Randy Díaz, [address] [facility] [address] [place] [address] RHEUMATOID ARTHRITIS (CMS/[facility]) (Primary Dx); AFTERCARE LADIES UNDERWEAR OPERATOR USE MEDICATN Social History Tobacco Use Types Packs/Day Years Used Date Smoking Tobacco: Never Assessed Comments Unknown Sex and Gender Information Value Date Recorded Sex Assigned at Not on file Legal Sex Female 5:44 AM EXPLOSIVES TRUCK DRIVER Gender Identity Not on file Sexual Orientation Not on file documented as of this encounter Plan of Treatment Not on file documented as of this encounter Visit Diagnoses Diagnosis Rheumatoid arthritis(714.0) (CMS/HCC)- Primary Rheumatoid arthritis Encounter for long-term (current) use of other medications documented in this encounter Care Teams Clinical Psychologist Private Practice Relationship Specialty Start Date End Date Inga Sullivan NP [address] [place] [address] PCP - General 09/20/08 documented as of this encounter
--- OUTSIDE RECORDS SUMMARY | 2025-03-19 07:11 | XMS_ITS | Encounter Summary ---
Author Organization [facility] Address [address] [place] [address] Care Team Providers Care Clinical Academic Allergist Name Role Phone Inga Sullivan DOUGH MIXER Primary Care Provider [phone] Encounter Details Date Type Department Care Team (Late st Contact Info) Description 10/19/2007 Outpatient Historical [facility] Rheumatology- [facility] [place] [address] [place] [address] Randy Díaz, DO [address] [facility] [address] [place] [address] Social History Tobacco Use Types Packs/Day Years Used Date Smoking Tobacco: Never Assessed Comments Unknown Sex and Gender Information Value Date Recorded Sex Assigned at Not on file Legal Sex Female 5:44 AM BOWL TOPPER Gender Identity Not on file Sexual Orientation Not on file documented as of this encounter Plan of Treatment Not on file documented as of this encounter Visit Diagnoses Not on filedocumented in this encounter Care Teams Clinical Academic Allergist Relationship Specialty Start Date End Date Inga Sullivan NP [address] [place] [address] PCP - General 09/20/08 documented as of this encounter
--- OUTSIDE RECORDS SUMMARY | 2025-03-19 07:11 | XMS_ITS | Encounter Summary ---
Author Organization [facility] Address [address] [place] [address] Care Team Providers Care Patient Case Manager Name Role Phone Inga Sullivan SHELL GRADER Primary Care Provider [phone] Encounter Details Date Type Department Care Team (Late st Contact Info) Description 12/31/2004 Outpatient Historical [facility] Rheumatology- [place] Ravindra [place] [address] [place] [address] Randy Díaz, [address] [facility] [address] [place] [address] RHEUMATOID ARTHRITIS (CMS/[facility]) (Primary Dx); JOINT PAIN-MULT JTS Social History Tobacco Use Types Packs/Day Years Used Date Smoking Tobacco: Never Assessed Comments Unknown Sex and Gender Information Value Date Recorded Sex Assigned at Not on file Legal Sex Female 5:44 AM CUSTOMS PATROL OFFICER Gender Identity Not on file Sexual Orientation Not on file documented as of this encounter Plan of Treatment Not on file documented as of this encounter Visit Diagnoses Diagnosis Rheumatoid arthritis(714.0) (CMS/HCC)- Primary Rheumatoid arthritis Pain in joint, multiple sites documented in this encounter Care Teams Patient Case Manager Relationship Specialty Start Date End Date Inga Sullivan, [place] [address] [place] [id number] PCP - General 09/20/08 documented as of this encounter
--- OUTSIDE RECORDS SUMMARY | 2025-03-19 07:11 | XMS_ITS | Encounter Summary ---
Author Organization [facility] Address [address] [place] [address] Care Team Providers Care Technical Sales Consultant Name Role Phone Inga Sullivan CUFF PRESSER Primary Care Provider [phone] Encounter Details Date Type Department Care Team (Late st Contact Info) Description 06/10/2004 Outpatient Historical [facility] Rheumatology- [place] Ravindra [place] [address] [place] [address] Randy Díaz, [address] [facility] [address] [place] [phone] RHEUMATOID ARTHRITIS (CMS/[facility]) (Primary Dx); AFTERCARE WASHHOUSE WORKER USE MEDICATN Social History Tobacco Use Types Packs/Day Years Used Date Smoking Tobacco: Never Assessed Comments Unknown Sex and Gender Information Value Date Recorded Sex Assigned at Not on file Legal Sex Female 5:44 AM CREDIT ADVISOR Gender Identity Not on file Sexual Orientation Not on file documented as of this encounter Plan of Treatment Not on file documented as of this encounter Visit Diagnoses Diagnosis Rheumatoid arthritis(714.0) (CMS/HCC)- Primary Rheumatoid arthritis Encounter for long-term (current) use of other medications documented in this encounter Care Teams Technical Sales Consultant Relationship Specialty Start Date End Date Inga Sullivan NP [address] [place] [address] PCP - General 09/20/08 documented as of this encounter
--- OUTSIDE RECORDS SUMMARY | 2025-03-19 07:11 | XMS_ITS | Encounter Summary ---
Author Organization [facility] Address [address] [place] [address] Care Team Providers Care Environmental Health Technician Name Role Phone Inga Sullivan ENAMEL SHADER Primary Care Provider [phone] Encounter Details Date Type Department Care Team (Late st Contact Info) Description 04/15/[address] [facility] Rheumatology- [place] Ravindra [place] [address] [place] [address] Randy Díaz, [address] [facility] [address] [place] [address] RHEUMATOID ARTHRITIS (CMS/[facility]) (Primary Dx); AFTERCARE HE[facility] RN USE MEDICATN Social History Tobacco Use Types Packs/Day Years Used Date Smoking Tobacco: Never Assessed Comments Unknown Sex and Gender Information Value Date Recorded Sex Assigned at Not on file Legal Sex Female 5:44 AM BOX TOE STITCHER Gender Identity Not on file Sexual Orientation Not on file documented as of this encounter Plan of Treatment Not on file documented as of this encounter Visit Diagnoses Diagnosis Rheumatoid arthritis(714.0) (CMS/HCC)- Primary Rheumatoid arthritis Encounter for long-term (current) use of other medications documented in this encounter Care Teams Environmental Health Technician Relationship Specialty Start Date End Date Inga Sullivan NP [address] [place] [id number] PCP - General 09/20/08 documented as of this encounter
[2025-03-19 07:54] LABS: Hematocrit 45.3 % (36-47); Hemoglobin 14.10 g/dL (11.27-16.99); Mean Corpuscular HGB Conc 31.1 g/dL (30-55); Mean Corpuscular Hemoglobin 26.2 pg (27-33); Mean Corpuscular Volume 84.2 fl (85-98); Nucleated Red Blood Cells % 0 %; Platelet Count 197 10^3/cmm (157-399); Red Blood Count 5.38 10^6/uL (3.85-5.65); White Blood Count 6.22 10^3/uL (3.29-11.43)
[2025-03-19 08:01] LABS: Troponin(5th) Baseline 13 ng/L (0-10)
[2025-03-19 08:09] LABS: Alanine Aminotransferase 17 U/L (0-33); Albumin Level 4.4 g/dL (3.5-5.2); Alkaline Phosphatase 94 U/L (35-105); Anion Gap 20.0 (5-19); Aspartate Amino Transferase 32 U/L (0-32); Blood Urea Nitrogen 6 mg/dL (8-23); Calcium 9.3 mg/dL (8.5-10.5); Carbon Dioxide 23 mmol/L (22-29); Chloride 102 mmol/L (98-107); Creatinine Clr Calc Pharmacy 56.3967; Globulin 2.7 g/dL (1.3-4.6); Glucose 93 mg/dL (65-115); Osmolality Calculated 291 mOsm/kg (285-295); Potassium 3.0 mmol/L (3.5-5.1); Sodium 142 mmol/L (136-145); Total Protein 7.1 g/dL (6.6-8.7)
--- NOTE | 2025-03-19 09:09 | ECG_ITS ---
[facility]: 2025-03-19 Pat Name: Noemi Quick Department: Room: Gender: Female Mass Spectroscopist: : 1965 Requested By: Royer Nice Order Number: [id number] [place] MD: Deon Davis M.D. Measurements Intervals [place] Rate: 60 P: 73 WY: 186 QRS: 69 QRSD: 92 T: 71 QT: 460 QTc: 461 Interpretive Statements SINUS RHYTHM Compared to ECG 03/19/2025 07:07:42 Poor R wave progression No significant changes Electronically Signed On 03-19-2025 17:11:56 CDT by Deon Davis M.D. [email or web address]
[2025-03-19 09:55] LABS: Troponin 5 2HR 9.52 ng/L (0-10)
[2025-03-19 10:01] LABS: Troponin 5 2HR Delta -3.48 ABS# (0-10)
== END 2025-03-19 11:05 | disposition home or self-care (01) ==
PROVIDERS: Emergency Provider Family Medicine; PCP Nurse Practitioner
DX: I48.91 Unspecified atrial fibrillation (principal); R07.89 Other chest pain
CPT/HCPCS: 36415; 71045; 80053; 84484; 85025; 93005; 99285; J9999

== ENCOUNTER → 2025-04-03 09:34 | Outpatient (BNVA) | payer MEDICAID, SELFPAY | PROVIDERS: PCP Nurse Practitioner; Visit Provider Nurse Practitioner | DX: K92.1 Melena (principal) | CPT/HCPCS: 82272 ==

== ENCOUNTER → 2025-04-06 10:59 | Outpatient (BNVA) | payer MEDICAID, SELFPAY | PROVIDERS: PCP Nurse Practitioner; Visit Provider Student in an Organized Health Care Education/Training Program | DX: K92.1 Melena (principal) | CPT/HCPCS: 99204 ==

== ENCOUNTER → 2025-04-18 15:29 | Outpatient (BNVA) | payer MEDICAID, SELFPAY | PROVIDERS: PCP Nurse Practitioner; Visit Provider Nurse Practitioner Family | DX: D22.5 Melanocytic nevi of trunk (principal); L65.0 Telogen effluvium; L72.0 Epidermal cyst; D17.21 Benign lipomatous neoplasm of skin and subcutaneous tissue of right arm; D17.1 Benign lipomatous neoplasm of skin and subcutaneous tissue of trunk; L81.4 Other melanin hyperpigmentation; L57.0 Actinic keratosis | CPT/HCPCS: 17000; 99213 ==

== ENCOUNTER → 2025-05-31 14:08 | Outpatient (BNVA) | payer MEDICAID, SELFPAY | PROVIDERS: PCP Nurse Practitioner; Visit Provider Nurse Practitioner | DX: Z79.899 Other long term (current) drug therapy (principal) | CPT/HCPCS: 82565; 84450; 84460; 85025; 86140 ==

== ENCOUNTER → 2025-06-04 09:11 | Outpatient (BNVA) | payer MEDICAID, SELFPAY | PROVIDERS: PCP Nurse Practitioner; Visit Provider Nurse Practitioner | DX: R19.7 Diarrhea, unspecified (principal); M79.604 Pain in right leg; M51.360 Other intervertebral disc degeneration, lumbar region with discogenic back pain only; N28.89 Other specified disorders of kidney and ureter | CPT/HCPCS: 72100; 83630; 87045; 87427; 87449 ==

== ENCOUNTER 2025-06-25 08:52 | Emergency (ER) | payer MEDICAID, SELFPAY ==
--- OUTSIDE RECORDS SUMMARY | 2018-11-04 04:53 | XMS_ITS | Continuity of Care Document ---
Author Organization [facility] Address [address] [facility] [place] [address] Phone Care Team Providers Care Duct Layer Name Role Phone Jose L Rooney DO Unavailable Unavailable Allergies, Adverse Reactions, Alerts Substance Reaction Status Criticality BUPROPION HCL Active No Information venom-wasp Active No Information polymyxin B Active No Information NEOMYCIN SULFATE Active No Informat ion BACITRACIN ZINC Active No Informati on bacitracin Active No Information metformin Active No Information NITROFURANTOIN MACROCRYSTALLINE Active No Information cephalexin Active No Information Medications Medication Instructions Dosage Effective Dates (start - stop) Status Comments lisinopril 2.5 mg tablet take 1 tablet by oral route every day 2.5 MG - Active rosuvastatin 20 mg tablet take 1 tablet by oral route every day 20 MG - Active Medrol (Mart) 4 mg tablets in a dose pack take with food as directed - Active Vitamin D3 5,000 unit tablet take 1 tablet by oral route every day 1 tablet - Active Victoza 3-Mart 0.6 mg/0.1 mL (18 mg/3 mL) subcutaneous pen injector inject (1.2MG) by subcutaneous route every day 1.2 MG - Active Vascepa 1 gram capsule take 2 capsule by oral route 2 times every day with food swallowing whole. Do not chew, open, dissolve and/or crush. 2 G - Active sertraline 50 mg tablet take 1 tablet by oral route every day 50 MG - Active Procedures Procedure Date OFFICE/OUTPATIENT VISIT EST Advance Directives Directive Yes / No Effective Date File Name No Information Encounters Encounter Description Practice Location Reason(s) For Visit Diagnoses Date Provider Providers Copied on Encounter [facility], [address] [facility] , [place], [place], [id number], tel:[phone] [facility] No Information 9 Nevin Domingo. [address], [place], [place], [id number], [place]. tel:[phone] [facility], [address] [facility] [place], [place], [address], [place] tel:[phone] [facility] No Information 8 Nevin Domingo. [address], [place], [place], [address], [place]. tel:[phone] OFFICE/OUTPA TIENT VISIT EST [facility], [address] [facility] [place], [place], [address], [place] tel:[phone] [facility] cough (chief complaint) dyspnea (chief complaint) diabetes (chief complaint) hyperlipid emia (chief complaint) Body mass index (BMI) 32.0-32.9, adultAcute bronchitisFatigue Type 2 diabetes mellitus without complicationsVita min D deficiency, unspecifiedHyperl ipidemia, unspecified 8 Alonzo Janey. [address] [place] [address], [id number], [place]. tel:[phone] [facility], [address] [facility] [place], [place], [address], tel:[phone] [facility] No Information 8 Alonzo Janey. [address] [place] [address], [id number], [place]. tel:[phone] Family History Family Member Type Diagnosis Age At Onset No Information Payers Payer name Insurance type Covered constitution party ID Authoriza tion(s) [facility] [id number] Social History Type Description Quantity Date Captured Comments Alcohol Use Details Unknown Caffeine Use Details Unknown Tobacco Use Status Smoking Status No Information Sex Female Sexual Orientation Straight or heterosexual Jan Gender Identity Female Chief Complaint And Reason For Visit No Information Reason For Referral Reason For Referral No Information Plan Of Treatment Date Type Action Status Goal FOBT. Due on due Goal Td vaccine. Due on 19 due Goal Mammogram. Due on 7 due Goal Pap/HPV testing. Due on due Goal Colonoscopy. Due on 019 due Goal Tdap. Due on due Goal Sigmoidoscopy. Due on due Goal Depression scree anabel. Due on due Goal Influenza vaccine. Due on due Goal Pneumococcal vac cine. Due on due Goal Foot exam. Due on 9 due Goal Dental exam. Due on 019 due Goal Urine microalbumin. Due on due Goal Dilated eye exam. Due on Oct due Goal GFR. Due on due Goal Influenza vaccine. Due on due Goal Pneumococcal vac cine. Due on due Goal Foot exam. Due on 8 due Goal Dental exam. Due on 018 due Goal GFR. Due on due Goal Urine microalbumin. Due on A due Goal Dilated eye exam. Due on Nov due Goal Depression scree anabel. Due on due Goal FOBT. Due on due Goal Td vaccine. Due on 18 due Goal Mammogram. Due on 8 due Goal Sigmoidoscopy. Due on due Goal Colonoscopy. Due on due Goal Tdap. Due on due Goal Pap/HPV testing. Due on due Goal Mammogram. Due on 8 due Goal Td vaccine. Due on 18 due Goal Lipid panel. Due on due Goal Depression scree anabel. Due on due Goal FOBT. Due on due Goal Tdap. Due on due Goal Sigmoidoscopy. Due on due Goal Colonoscopy. Due on due Goal Pap/HPV testing. Due on due Goal Influenza vaccine. Due on due Goal Dietary manageme nt education, guidance, and counseling completed Future Order: Lab Order CBC (INC LUDES DIFF/PLT) ([id number]), Scheduled for: Ordered Future Order: Lab Order COMPREHE NSIVE METABOLIC PANEL ([id number]), Scheduled for: Ordered Future Order: Lab Order HEMOGLOB IN A1C ([id number]), Scheduled for: Ordered Future Order: Lab Order LIPID PA BRIJESH ([id number]), Scheduled for: Ordered Future Order: Lab Order TSH, 3RD GENERATION ([id number]), Scheduled for: Ordered Future Order: Lab Order VITAMIN D,25-OH,TOTAL,IA ([id number]), Scheduled for: Ordered History Of Present Illness Encounter Date Complaint History Of Prese nt Illness cough Onset: 5 days ag o. The patient describes the cough as productive (of yellow sputum). There are no aggravating factors. Relieving factors include air borne and hot tea. Associated symptoms include chills, cough, fatigue, fever, nasal congestion, post-nasal drainage and sinus pressure. Additional information: Pt had some left over albuterol nebulizer solution and this did help pt get up and around today. diabetes The problem is s table. Risk factors include: obesity and over age 4545 years old. Associated symptoms include: dyspnea. Pertinent negatives include chest pain. Additional information: Due for labs. hyperlipidemia Risk factors inc lude age over 50, family history of CAD and family history of DM. The patient is adhering to medication, follow-up, diet and exercise for their hyperlipidemia. Associated symptoms include dyspnea. Pertinent negatives include chest pain, claudication, constipation, diarrhea, dizziness and palpitations. dyspnea The symptoms are reported as being moderate. The symptoms occur constantly. She states the symptoms are acute and are of new onset. States she has been sick for at least a week. She states she is getting worse and her chest feels tight. Functional Status Date Functional Assessmen t No Information Instructions Date Instruction Additional Infor tirsoion Get labs in 1 month and f/u in 1 week after. Related to Type 2 diabetes mellitus without complications Maintain adequate rest. Related to Fatigue Maintain adequate cl ear fluid intake. Consider use of eilg-wkv-efwcdup mucolytic such as guaifenesin. Will give Symbicort inhaler for 7-14 day use -- rinse mouth after use. The patient was advised to call the office if symptoms worsen or do not improve. Related to Acute bronchitis Giving encouragement to exercise Related to Body mass index (BMI) 32.0-32.9, adult Dietary management e ducation, guidance, and counseling Related to Body mass index (BMI) 32.0-32.9, adult Assessments Type Assessment Date No Information Patient Care Teams Name Effective Dates (start - stop) Status Members No Information
--- OUTSIDE RECORDS SUMMARY | 2019-02-21 09:23 | XMS_ITS | Continuity of Care Document ---
Author Organization [facility] Address [address] [place] [address] Phone Care Team Providers Care Bottling Supervisor Name Role Phone Greg HAN, Flash Unavailable Unavailabl e Advance Directives Directive Yes / No Effective Date File Name No Information Encounters Encounter Description Practice Location Reason(s) For Visit Diagnoses Date Provider Providers Copied on Encounter [facility], [address], [place], [place], [address], [place] tel:[phone] [facility] No Information Greg Vidales. [address], [address], [place], [place], [address], [place]. tel:[phone] Family History Family Member Type Diagnosis Age [...]
--- NOTE | 2025-06-25 08:54 | XR_ITS ---
WS: [id number] Exam: XR chest 1V portable [id number] Date/Time of Exam: 06/25/2025 8:54 AM Reason For Exam: palpitations Comparison 03/19/2025. Lungs are hyperinflated and clear. Normal cardiomediastinal silhouette. Regional bony structures appear normal. XR/XR chest 1V portable [id number] IMPRESSION: 1. Pulmonary hyperinflation. No acute process.
--- OUTSIDE RECORDS SUMMARY | 2025-06-25 09:06 | XMS_ITS | Encounter Summary ---
Author Organization [facility] Address [address] [place] [address] Care Team Providers Care Doughmaker Name Role Phone Inga Sullivan WOOD CUTTER Primary Care Provider [phone] Encounter Details Date Type Department Care Team (Late st Contact Info) Description 07/05/2003 Outpatient Historical [facility] Rheumatology- [place] Ravindra [place] [address] [place] [address] Randy Díaz, [address] [facility] [address] [place] [address] JOINT PAIN-MULT JTS (Primary Dx); RHEUMATOID ARTHRITIS (CMS/HCC); DEPRESSIVE DISORDER NEC; AFTERCARE ADVISOR CONSULTANT USE MEDICATN Social History Tobacco Use Types Packs/Day Years Used Date Smoking Tobacco: Never Assessed Comments Unknown Sex and Gender Information Value Date Recorded Sex Assigned at Not on file Legal Sex Female 5:44 AM FISH LIVER SORTER Gender Identity Not on file Sexual Orientation Not on file documented as of this encounter Plan of Treatment Not on file documented as of this encounter Visit Diagnoses Diagnosis Pain in joint, multiple sites- Primary Rheumatoid arthritis(714.0) (CMS/HCC) Rheumatoid arthritis Depressive disorder, not elsewhere classified Encounter for long-term (current) use of other medications documented in this encounter Care Teams Doughmaker Relationship Specialty Start Date End Date Inga Sullivan, [place] [address] [place] [address] PCP - General 09/20/08 documented as of this encounter
--- OUTSIDE RECORDS SUMMARY | 2025-06-25 09:06 | XMS_ITS | Encounter Summary ---
Author Organization [facility] Address [address] [place] [address] Care Team Providers Care Mold Machine Operator Name Role Phone Inga Sullivan DEVELOPMENT SPECIALIST Primary Care Provider [phone] Encounter Details Date Type Department Care Team (Late st Contact Info) Description 07/05/2003 Outpatient Historical [facility] Rheumatology- [place] Ravindra [place] [address] [place] [address] Randy Díaz, [address] [facility] [address] [place] [phone] RHEUMATOID ARTHRITIS (CMS/[facility]) (Primary Dx); AFTERCARE [facility] USE MEDICATN Social History Tobacco Use Types Packs/Day Years Used Date Smoking Tobacco: Never Assessed Comments Unknown Sex and Gender Information Value Date Recorded Sex Assigned at Not on file Legal Sex Female 5:44 AM ASSISTANT ADMINISTRATOR Gender Identity Not on file Sexual Orientation Not on file documented as of this encounter Plan of Treatment Not on file documented as of this encounter Visit Diagnoses Diagnosis Rheumatoid arthritis(714.0) (CMS/HCC)- Primary Rheumatoid arthritis Encounter for long-term (current) use of other medications documented in this encounter Care Teams Mold Machine Operator Relationship Specialty Start Date End Date Inga Sullivan NP [address] [place] [address] PCP - General 09/20/08 documented as of this encounter
--- OUTSIDE RECORDS SUMMARY | 2025-06-25 09:06 | XMS_ITS | Encounter Summary ---
Author Organization [facility] Address [address] [place] [address] Care Team Providers Care Security Flex Officer Name Role Phone Inga Sullivan SECONDARY SCHOOL TEACHER LIBRARIAN Primary Care Provider [phone] Encounter Details Date Type Department Care Team (Late st Contact Info) Description 09/04/2003 Outpatient Historical [facility] Rheumatology- [place] Ravindra [place] [address] [place] [address] Randy Díaz, [address] [facility] [address] [place] [address] RHEUMATOID ARTHRITIS (CMS/[facility]) (Primary Dx); AFTERCARE HALF-WAY USE MEDICATN Social History Tobacco Use Types Packs/Day Years Used Date Smoking Tobacco: Never Assessed Comments Unknown Sex and Gender Information Value Date Recorded Sex Assigned at Not on file Legal Sex Female 5:44 AM DIGITAL MARKETER Gender Identity Not on file Sexual Orientation Not on file documented as of this encounter Plan of Treatment Not on file documented as of this encounter Visit Diagnoses Diagnosis Rheumatoid arthritis(714.0) (CMS/HCC)- Primary Rheumatoid arthritis Encounter for long-term (current) use of other medications documented in this encounter Care Teams Security Flex Officer Relationship Specialty Start Date End Date Inga Sullivan NP [address] [place] [address] PCP - General 09/20/08 documented as of this encounter
--- OUTSIDE RECORDS SUMMARY | 2025-06-25 09:06 | XMS_ITS | Encounter Summary ---
Author Organization [facility] Address [address] [place] [address] Care Team Providers Care Vp Informatics Name Role Phone Inga Sullivan PAINTING TECHNICIAN Primary Care Provider [phone] Encounter Details Date Type Department Care Team (Late st Contact Info) Description 10/31/2003 Outpatient Historical [facility] Rheumatology- [place] Ravindra [place] [address] [place] [address] Randy Díaz, [address] [facility] [address] [place] [address] RHEUMATOID ARTHRITIS (CMS/[facility]) (Primary Dx); AFTERCARE SENIOR CARE USE MEDICATN Social History Tobacco Use Types Packs/Day Years Used Date Smoking Tobacco: Never Assessed Comments Unknown Sex and Gender Information Value Date Recorded Sex Assigned at Not on file Legal Sex Female 5:44 AM DAIRY HUSBANDRY WORKER Gender Identity Not on file Sexual Orientation Not on file documented as of this encounter Plan of Treatment Not on file documented as of this encounter Visit Diagnoses Diagnosis Rheumatoid arthritis(714.0) (CMS/HCC)- Primary Rheumatoid arthritis Encounter for long-term (current) use of other medications documented in this encounter Care Teams Vp Informatics Relationship Specialty Start Date End Date Inga Sullivan NP [address] [place] [address] PCP - General 09/20/08 documented as of this encounter
--- OUTSIDE RECORDS SUMMARY | 2025-06-25 09:06 | XMS_ITS | Encounter Summary ---
Author Organization [facility] Address [address] [place] [address] Care Team Providers Care Ambulance Mechanic Name Role Phone Inga Sullivan ADVANCED CLINICAL SPECIALIST Primary Care Provider [phone] Encounter Details Date Type Department Care Team (Late st Contact Info) Description 01/01/2004 Outpatient Historical [facility] Rheumatology- [place] Ravindra [place] [address] [place] [address] Randy Díaz, [address] [facility] [address] [place] [address] RHEUMATOID ARTHRITIS (CMS/[facility]) (Primary Dx); AFTERCARE SENIOR LIVING USE MEDICATN Social History Tobacco Use Types Packs/Day Years Used Date Smoking Tobacco: Never Assessed Comments Unknown Sex and Gender Information Value Date Recorded Sex Assigned at Not on file Legal Sex Female 5:44 AM ELECTRICAL ELECTRONICS TECHNICIAN Gender Identity Not on file Sexual Orientation Not on file documented as of this encounter Plan of Treatment Not on file documented as of this encounter Visit Diagnoses Diagnosis Rheumatoid arthritis(714.0) (CMS/HCC)- Primary Rheumatoid arthritis Encounter for long-term (current) use of other medications documented in this encounter Care Teams Ambulance Mechanic Relationship Specialty Start Date End Date Inga Sullivan NP [address] [place] [address] PCP - General 09/20/08 documented as of this encounter
--- OUTSIDE RECORDS SUMMARY | 2025-06-25 09:06 | XMS_ITS | Encounter Summary ---
Author Organization [facility] Address [address] [place] [address] Care Team Providers Care Lead Manufacturing Engineer Name Role Phone Inga Sullivan HEAD RIGGER Primary Care Provider [phone] Encounter Details Date Type Department Care Team (Late st Contact Info) Description 09/04/2003 Outpatient Historical [facility] Rheumatology- [facility] [place] [address] [place] [address] Randy Díaz, [address] [facility] [address] [place] [address] RHEUMATOID ARTHRITIS (CMS/[facility]) (Primary Dx); DEPRESSIVE DISORDER NEC; AFTERCARE INTERMEDIATE USE MEDICATN Social History Tobacco Use Types Packs/Day Years Used Date Smoking Tobacco: Never Assessed Comments Unknown Sex and Gender Information Value Date Recorded Sex Assigned at Not on file Legal Sex Female 5:44 AM CONTROLS DESIGNER Gender Identity Not on file Sexual Orientation Not on file documented as of this encounter Plan of Treatment Not on file documented as of this encounter Visit Diagnoses Diagnosis Rheumatoid arthritis(714.0) (CMS/HCC)- Primary Rheumatoid arthritis Depressive disorder, not elsewhere classified Encounter for long-term (current) use of other medications documented in this encounter Care Teams Lead Manufacturing Engineer Relationship Specialty Start Date End Date Inga Sullivan, HEAD RIGGER [address] [place] [address] PCP - General 09/20/08 documented as of this encounter
--- OUTSIDE RECORDS SUMMARY | 2025-06-25 09:07 | XMS_ITS | Encounter Summary ---
Author Organization [facility] Address [address] [place] [address] Care Team Providers Care Review Assistant Name Role Phone Inga Sullivan SFDC CONSULTANT Primary Care Provider [phone] Encounter Details Date Type Department Care Team (Late st Contact Info) Description 10/12/2002 Outpatient Historical [facility] Rheumatology- [place] Ravindra [place] [address] [place] [address] Randy Díaz, [address] [facility] [address] [place] [address] RHEUMATOID ARTHRITIS (CMS/[facility]) (Primary Dx); AFTERCARE SNF USE MEDICATN Social History Tobacco Use Types Packs/Day Years Used Date Smoking Tobacco: Never Assessed Comments Unknown Sex and Gender Information Value Date Recorded Sex Assigned at Not on file Legal Sex Female 5:44 AM ENVIRONMENTAL SERVICES COORDINATOR Gender Identity Not on file Sexual Orientation Not on file documented as of this encounter Plan of Treatment Not on file documented as of this encounter Visit Diagnoses Diagnosis Rheumatoid arthritis(714.0) (CMS/HCC)- Primary Rheumatoid arthritis Encounter for long-term (current) use of other medications documented in this encounter Care Teams Review Assistant Relationship Specialty Start Date End Date Inga Sullivan NP [address] [place] [address] PCP - General 09/20/08 documented as of this encounter
--- OUTSIDE RECORDS SUMMARY | 2025-06-25 09:07 | XMS_ITS | Encounter Summary ---
Author Organization [facility] Address [address] [place] [address] Care Team Providers Care Brass Burnisher Name Role Phone Inga Sullivan COURT MONITOR Primary Care Provider [phone] Encounter Details Date Type Department Care Team (Latest Contact Info) Description 04/12/2006 Outpatient Historical [facility] Rheumatology- [place] Ravindra [place] [address] [place] [address] Randy Díaz, DO [address] [facility] [address] [place] [address] Rheumatoid Arthritis (CMS/[facility]) (Primary Dx); Nausea with Vomiting; Encounter for Long-Term (Current) Use of Other Medications; Screening Examination for Pulmonary Tuberculosis Social History Tobacco Use Types Packs/Day Years Used Date Smoking Tobacco: Never Assessed Comments Unknown Sex and Gender Information Value Date Recorded Sex Assigned at Not on file Legal Sex Female 5:44 AM FRONT OFFICE SPECIALIST Gender Identity Not on file Sexual Orientation Not on file documented as of this encounter Plan of Treatment Not on file documented as of this encounter Visit Diagnoses Diagnosis Rheumatoid arthritis(714.0) (CMS/HCC)- Primary Rheumatoid arthritis Nausea with vomiting Encounter for long-term (current) use of other medications Screening examination for pulmonary tuberculosis documented in this encounter Care Teams Brass Burnisher Relationship Specialty Start Date End Date Inga Sullivan, COURT MONITOR [address] [place] [address] PCP - General 09/20/08 documented as of this encounter
--- OUTSIDE RECORDS SUMMARY | 2025-06-25 09:07 | XMS_ITS | Encounter Summary ---
Author Organization [facility] Address [address] [place] [address] Care Team Providers Care Diagrammer And Seamer Name Role Phone Inga Sullivan FELT HAT POUNCING OPERATOR HAND Primary Care Provider [phone] Encounter Details Date Type Department Care Team (Late st Contact Info) Description 09/27/2006 Outpatient Historical [facility] Rheumatology- [facility] [place] [address] [place] [address] Randy Díaz, [address] [facility] [address] [place] [address] Rheumatoid Arthritis (CMS/[facility]) (Primary Dx); Encounter for Long-Term (Current) Use of Other Medications Social History Tobacco Use Types Packs/Day Years Used Date Smoking Tobacco: Never Assessed Comments Unknown Sex and Gender Information Value Date Recorded Sex Assigned at Not on file Legal Sex Female 5:44 AM GEOGRAPHICAL HISTORIAN Gender Identity Not on file Sexual Orientation Not on file documented as of this encounter Plan of Treatment Not on file documented as of this encounter Visit Diagnoses Diagnosis Rheumatoid arthritis(714.0) (CMS/HCC)- Primary Rheumatoid arthritis Encounter for long-term (current) use of other medications documented in this encounter Care Teams Diagrammer And Seamer Relationship Specialty Start Date End Date Inga Sullivan, AL[place] [address] [place] [address] PCP - General 09/20/08 documented as of this encounter
--- OUTSIDE RECORDS SUMMARY | 2025-06-25 09:07 | XMS_ITS | Encounter Summary ---
Author Organization [facility] Address [address] [place] [address] Care Team Providers Care Desk Pen Set Assembler Name Role Phone Inga Sullivan IPHONE DEVELOPER Primary Care Provider [phone] Encounter Details Date Type Department Care Team (Late st Contact Info) Description 09/27/2006 Outpatient Historical [facility] Rheumatology- [place] [address] [place] [address] Randy Díaz, [address] [facility] [address] [place] [address] Rheumatoid Arthritis (CMS/[facility]) (Primary Dx); Encounter for Long-Term (Current) Use of Other Medications Social History Tobacco Use Types Packs/Day Years Used Date Smoking Tobacco: Never Assessed Comments Unknown Sex and Gender Information Value Date Recorded Sex Assigned at Not on file Legal Sex Female 5:44 AM TAG AND LABEL CUTTER Gender Identity Not on file Sexual Orientation Not on file documented as of this encounter Plan of Treatment Not on file documented as of this encounter Visit Diagnoses Diagnosis Rheumatoid arthritis(714.0) (CMS/HCC)- Primary Rheumatoid arthritis Encounter for long-term (current) use of other medications documented in this encounter Care Teams Desk Pen Set Assembler Relationship Specialty Start Date End Date Inga Sullivan, ALCON [address] [place] [address] PCP - General 09/20/08 documented as of this encounter
--- OUTSIDE RECORDS SUMMARY | 2025-06-25 09:07 | XMS_ITS | Encounter Summary ---
Author Organization [facility] Address [address] [place] [address] Care Team Providers Care Plain Goods Hemmer Name Role Phone Inga Sullivan GED PREPARATION TEACHER Primary Care Provider [phone] Encounter Details Date Type Department Care Team (Late st Contact Info) Description 12/07/2002 Outpatient Historical [facility] Rheumatology- [place] Ravindra [place] [address] [place] [address] Randy Díaz, [address] [facility] [address] [place] [address] RHEUMATOID ARTHRITIS (CMS/[facility]) (Primary Dx); AFTERCARE SENIOR CARE USE MEDICATN Social History Tobacco Use Types Packs/Day Years Used Date Smoking Tobacco: Never Assessed Comments Unknown Sex and Gender Information Value Date Recorded Sex Assigned at Not on file Legal Sex Female 5:44 AM OPERATING COST CLERK Gender Identity Not on file Sexual Orientation Not on file documented as of this encounter Plan of Treatment Not on file documented as of this encounter Visit Diagnoses Diagnosis Rheumatoid arthritis(714.0) (CMS/HCC)- Primary Rheumatoid arthritis Encounter for long-term (current) use of other medications documented in this encounter Care Teams Plain Goods Hemmer Relationship Specialty Start Date End Date Inga Sullivan NP [address] [place] [address] PCP - General 09/20/08 documented as of this encounter
--- OUTSIDE RECORDS SUMMARY | 2025-06-25 09:07 | XMS_ITS | Encounter Summary ---
Author Organization [facility] Address [address] [place] [address] Care Team Providers Care Research Home Economist Name Role Phone Inga Sullivan SERVICE ORDER DISPATCHER CHIEF Primary Care Provider [phone] Encounter Details Date Type Department Care Team (Late st Contact Info) Description 05/09/2007 Outpatient Historical [facility] Rheumatology- [facility] [place] [address] [place] [address] Randy Díaz, [address] [facility] [address] [place] [address] Rheumatoid Arthritis (CMS/[facility]) (Primary Dx); Encounter for Long-Term (Current) Use of Other Medications Social History Tobacco Use Types Packs/Day Years Used Date Smoking Tobacco: Never Assessed Comments Unknown Sex and Gender Information Value Date Recorded Sex Assigned at Not on file Legal Sex Female 5:44 AM AGRICULTURAL SERVICE WORKER Gender Identity Not on file Sexual Orientation Not on file documented as of this encounter Plan of Treatment Not on file documented as of this encounter Visit Diagnoses Diagnosis Rheumatoid arthritis(714.0) (CMS/HCC)- Primary Rheumatoid arthritis Encounter for long-term (current) use of other medications documented in this encounter Care Teams Research Home Economist Relationship Specialty Start Date End Date Inga Sullivan, ALCON [address] [place] [address] PCP - General 09/20/08 documented as of this encounter
--- OUTSIDE RECORDS SUMMARY | 2025-06-25 09:07 | XMS_ITS | Encounter Summary ---
Author Organization [facility] Address [address] [place] [address] Care Team Providers Care Director Web Name Role Phone Inga Sullivan CLIENT DEVELOPMENT MANAGER Primary Care Provider [phone] Encounter Details Date Type Department Care Team (Late st Contact Info) Description 02/15/2006 Outpatient Historical [facility] Rheumatology- [facility] [place] [address] [place] [address] Randy Díaz, [address] [facility] [address] [place] [address] Rheumatoid Arthritis (CMS/[facility]) (Primary Dx); Encounter for Long-Term (Current) Use of Other Medications Social History Tobacco Use Types Packs/Day Years Used Date Smoking Tobacco: Never Assessed Comments Unknown Sex and Gender Information Value Date Recorded Sex Assigned at Not on file Legal Sex Female 5:44 AM STUDIO SALES ASSOCIATE Gender Identity Not on file Sexual Orientation Not on file documented as of this encounter Plan of Treatment Not on file documented as of this encounter Visit Diagnoses Diagnosis Rheumatoid arthritis(714.0) (CMS/HCC)- Primary Rheumatoid arthritis Encounter for long-term (current) use of other medications documented in this encounter Care Teams Director Web Relationship Specialty Start Date End Date Inga Sullivan, ALCON [address] [place] [address] PCP - General 09/20/08 documented as of this encounter
--- OUTSIDE RECORDS SUMMARY | 2025-06-25 09:07 | XMS_ITS | Encounter Summary ---
Author Organization [facility] Address [address] [place] [address] Care Team Providers Care Winding Inspector Name Role Phone Inga Sullivan CIVIL PREPAREDNESS COORDINATOR Primary Care Provider [phone] Encounter Details Date Type Department Care Team (Late st Contact Info) Description 03/14/2007 Outpatient Historical [facility] Rheumatology- [facility] [place] [address] [place] [address] Randy Díaz, [address] [facility] [address] [place] [phone] Rheumatoid Arthritis (CMS/[facility]) (Primary Dx); Encounter for Long-Term (Current) Use of Other Medications Social History Tobacco Use Types Packs/Day Years Used Date Smoking Tobacco: Never Assessed Comments Unknown Sex and Gender Information Value Date Recorded Sex Assigned at Not on file Legal Sex Female 5:44 AM BASE DRAW OPERATOR Gender Identity Not on file Sexual Orientation Not on file documented as of this encounter Plan of Treatment Not on file documented as of this encounter Visit Diagnoses Diagnosis Rheumatoid arthritis(714.0) (CMS/HCC)- Primary Rheumatoid arthritis Encounter for long-term (current) use of other medications documented in this encounter Care Teams Winding Inspector Relationship Specialty Start Date End Date Inga Sullivan, ALCON [address] [place] [id number] PCP - General 09/20/08 documented as of this encounter
--- OUTSIDE RECORDS SUMMARY | 2025-06-25 09:07 | XMS_ITS | Encounter Summary ---
Author Organization [facility] Address [address] [place] [address] Care Team Providers Care Safety Supervisor Name Role Phone Inga Sullivan OIL WELL SERVICES SUPERVISOR Primary Care Provider [phone] Encounter Details Date Type Department Care Team (Late st Contact Info) Description 11/22/2006 Outpatient Historical [facility] Rhe[facility]- [facility] [place] [address] [place] [address] Randy Díaz, [address] [facility] [address] [place] [phone] Rheumatoid Arthritis (CMS/[facility]) (Primary Dx); Encounter for Long-Term (Current) Use of Other Medications Social History Tobacco Use Types Packs/Day Years Used Date Smoking Tobacco: Never Assessed Comments Unknown Sex and Gender Information Value Date Recorded Sex Assigned at Not on file Legal Sex Female 5:44 AM PROJECT ENG Gender Identity Not on file Sexual Orientation Not on file documented as of this encounter Plan of Treatment Not on file documented as of this encounter Visit Diagnoses Diagnosis Rheumatoid arthritis(714.0) (CMS/HCC)- Primary Rheumatoid arthritis Encounter for long-term (current) use of other medications documented in this encounter Care Teams Safety Supervisor Relationship Specialty Start Date End Date Inga Sullivan, ALCON [address] [place] [address] PCP - General 09/20/08 documented as of this encounter
--- OUTSIDE RECORDS SUMMARY | 2025-06-25 09:07 | XMS_ITS | Encounter Summary ---
Author Organization [facility] Address [address] [place] [address] Care Team Providers Care Well Service Floor Worker Name Role Phone Inga Sullivan CONTROL CLERK HEAD Primary Care Provider [phone] Encounter Details Date Type Department Care Team (Late st Contact Info) Description 11/07/2002 Outpatient Historical [facility] Rheumatology- [place] Ravindra Ute [address] [place] [address] Randy Díaz, [address] [facility] [address] [place] [phone] RHEUMATOID ARTHRITIS (CMS/[facility]) (Primary Dx); AFTERCARE [facility] USE MEDICATN Social History Tobacco Use Types Packs/Day Years Used Date Smoking Tobacco: Never Assessed Comments Unknown Sex and Gender Information Value Date Recorded Sex Assigned at Not on file Legal Sex Female 5:44 AM HOURLY ASSOCIATE Gender Identity Not on file Sexual Orientation Not on file documented as of this encounter Plan of Treatment Not on file documented as of this encounter Visit Diagnoses Diagnosis Rheumatoid arthritis(714.0) (CMS/HCC)- Primary Rheumatoid arthritis Encounter for long-term (current) use of other medications documented in this encounter Care Teams Well Service Floor Worker Relationship Specialty Start Date End Date Inga Sullivan NP [address] [place] [address] PCP - General 09/20/08 documented as of this encounter
--- OUTSIDE RECORDS SUMMARY | 2025-06-25 09:07 | XMS_ITS | Encounter Summary ---
Author Organization [facility] Address [address] [place] [address] Care Team Providers Care Automatic Lathe Setter Name Role Phone Inga Sullivan CARDIAC NURSE SPECIALIST Primary Care Provider [phone] Encounter Details Date Type Department Care Team (Late st Contact Info) Description 07/04/2007 Outpatient Historical [facility]- [facility] [address] [address] Randy Díaz, [address] [facility] [address] [place] [address] Rheumatoid Arthritis (CMS/[facility]) (Primary Dx); Encounter for Long-Term (Current) Use of Other Medications Social History Tobacco Use Types Packs/Day Years Used Date Smoking Tobacco: Never Assessed Comments Unknown Sex and Gender Information Value Date Recorded Sex Assigned at Not on file Legal Sex Female 5:44 AM WET MILLING WHEEL OPERATOR Gender Identity Not on file Sexual Orientation Not on file documented as of this encounter Plan of Treatment Not on file documented as of this encounter Visit Diagnoses Diagnosis Rheumatoid arthritis(714.0) (CMS/HCC)- Primary Rheumatoid arthritis Encounter for long-term (current) use of other medications documented in this encounter Care Teams Automatic Lathe Setter Relationship Specialty Start Date End Date Inga Sullivan, ALCON [address] [place] [address] PCP - General 09/20/08 documented as of this encounter
--- OUTSIDE RECORDS SUMMARY | 2025-06-25 09:07 | XMS_ITS | Clinical Summary ---
Author Organization [facility] Janusz daley Echo Address [address] [place] [address] Phone Care Team Providers Care Commercial Production Editor Name Role Phone Inga Sullivan TRAY DRIER Primary Care Provider [phone] Allergies No known active allergies Medications citalopram [...] 5 mg Oral tabletIndicatio ns:Rheumatoid arthritis(714.0 ) ([facility]) Take 1 Tab by mouth daily with breakfast. For Rheumatoid Arthritis 30 Tab 11 3 Active methotrexate sodium 25 mg/mL Injection SolnIndications :Rheumatoid arthritis(714.0 ) ([facility]) Inject 0.5 mL by subcutaneous injection every [...] on file Legal Sex Female 5:44 AM RESEARCH EXECUTIVE Gender Identity Not on file Sexual [...] series) 2038 Insurance [place]ICAID [place] Care Teams Commercial Production Editor Relationship Specialty Start Date End Date Inga Sullivan NP [facility] [place] [address] PCP - General 09/20/08
--- OUTSIDE RECORDS SUMMARY | 2025-06-25 09:07 | XMS_ITS | Encounter Summary ---
Author Organization [facility] Address [address] [place] [address] Care Team Providers Care Residential Specialist Name Role Phone Inga Sullivan TELEPHONE BETTING CLERK Primary Care Provider [phone] Encounter Details Date Type Department Care Team (Late st Contact Info) Description 04/14/2002 Outpatient Historical [facility] Rheumatology- [place] Ravindra [place] [address] [place] [address] Randy Díaz, DO [address] [facility] [address] [place] [address] RHEUMATOID ARTHRITIS (CMS/[facility]) (Primary Dx) Social History Tobacco Use Types Packs/Day Years Used Date Smoking Tobacco: Never Assessed Comments Unknown Sex and Gender Information Value Date Recorded Sex Assigned at Not on file Legal Sex Female 5:44 AM AUTOMATION AND CONTROLS MANAGER Gender Identity Not on file Sexual Orientation Not on file documented as of this encounter Plan of Treatment Not on file documented as of this encounter Visit Diagnoses Diagnosis Rheumatoid arthritis(714.0) (CMS/HCC)- Primary Rheumatoid arthritis documented in this encounter Care Teams Residential Specialist Relationship Specialty Start Date End Date Inga Sullivan NP [address] [place] [address] PCP - General 09/20/08 documented as of this encounter
--- OUTSIDE RECORDS SUMMARY | 2025-06-25 09:07 | XMS_ITS | Encounter Summary ---
Author Organization [facility] Address [address] [place] [address] Care Team Providers Care Traffic Personnel Supervisor Name Role Phone Inga Sullivan CABLE OPERATOR Primary Care Provider [phone] Encounter Details Date Type Department Care Team (Late st Contact Info) Description 12/14/2002 Outpatient Historical [facility] Rheumatology- [place] Ravindra [place] [address] [place] [address] Randy Díaz, [address] [facility] [address] [place] [phone] RHEUMATOID ARTHRITIS (CMS/[facility]) (Primary Dx); AFTERCARE [facility] USE MEDICATN Social History Tobacco Use Types Packs/Day Years Used Date Smoking Tobacco: Never Assessed Comments Unknown Sex and Gender Information Value Date Recorded Sex Assigned at Not on file Legal Sex Female 5:44 AM AUDIO RECORDING ENGINEER Gender Identity Not on file Sexual Orientation Not on file documented as of this encounter Plan of Treatment Not on file documented as of this encounter Visit Diagnoses Diagnosis Rheumatoid arthritis(714.0) (CMS/HCC)- Primary Rheumatoid arthritis Encounter for long-term (current) use of other medications documented in this encounter Care Teams Traffic Personnel Supervisor Relationship Specialty Start Date End Date Inga Sullivan NP [address] [place] [id number] PCP - General 09/20/08 documented as of this encounter
--- OUTSIDE RECORDS SUMMARY | 2025-06-25 09:07 | XMS_ITS | Encounter Summary ---
Author Organization [facility] Address [address] [place] [address] Care Team Providers Care Chief Accounting Officer Name Role Phone Inga Sullivan DIETITIAN CONSULTANT Primary Care Provider [phone] Encounter Details Date Type Department Care Team (Late st Contact Info) Description 08/02/2006 Outpatient Historical [facility]- [facility] [place] [address] [place] [address] Randy Díaz, [address] [facility] [address] [place] [address] Rheumatoid Arthritis (CMS/[facility]) (Primary Dx); Encounter for Long-Term (Current) Use of Other Medications Social History Tobacco Use Types Packs/Day Years Used Date Smoking Tobacco: Never Assessed Comments Unknown Sex and Gender Information Value Date Recorded Sex Assigned at Not on file Legal Sex Female 5:44 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
--- OUTSIDE RECORDS SUMMARY | 2025-06-25 09:07 | XMS_ITS | Encounter Summary ---
Author Organization [facility] Address [address] [place] [address] Care Team Providers Care Heating Element Winder Name Role Phone Inga Sullivan SURVEYOR INSTRUMENT ASSISTANT Primary Care Provider [phone] Encounter Details Date Type Department Care Team (Late st Contact Info) Description 12/21/2005 Outpatient Historical [facility] Rheumatology- [place] [facility] [address] [place] [address] Randy Díaz, [address] [facility] [address] [place] [address] Rheumatoid Arthritis (CMS/[facility]) (Primary Dx); Encounter for Long-Term (Current) Use of Other Medications Social History Tobacco Use Types Packs/Day Years Used Date Smoking Tobacco: Never Assessed Comments Unknown Sex and Gender Information Value Date Recorded Sex Assigned at Not on file Legal Sex Female 5:44 AM PICKLE CUTTER Gender Identity Not on file Sexual Orientation Not on file documented as of this encounter Plan of Treatment Not on file documented as of this encounter Visit Diagnoses Diagnosis Rheumatoid arthritis(714.0) (CMS/HCC)- Primary Rheumatoid arthritis Encounter for long-term (current) use of other medications documented in this encounter Care Teams Heating Element Winder Relationship Specialty Start Date End Date Inga Sullivan, ALCON [address] [place] [address] PCP - General 09/20/08 documented as of this encounter
--- OUTSIDE RECORDS SUMMARY | 2025-06-25 09:07 | XMS_ITS | Encounter Summary ---
Author Organization [facility] Address [address] [place] [address] Care Team Providers Care Maintenance Craftsman Name Role Phone Inga Sullivan STEEL LAYER Primary Care Provider [phone] Encounter Details Date Type Department Care Team (Latest Contact Info) Description 03/14/2007 Outpatient Historical [facility] Rheumatology- [place] Ravindra [place]widdie [address] [place] [address] Randy Díaz, DO [address] [facility] [address] [place] [address] Rheumatoid Arthritis (CMS/[facility]) (Primary Dx); Encounter for Long-Term (Current) Use of Other Medications; Screening Examination for Pulmonary Tuberculosis Social History Tobacco Use Types Packs/Day Years Used Date Smoking Tobacco: Never Assessed Comments Unknown Sex and Gender Information Value Date Recorded Sex Assigned at Not on file Legal Sex Female 5:44 AM DRAFTING DETAILER Gender Identity Not on file Sexual Orientation Not on file documented as of this encounter Plan of Treatment Not on file documented as of this encounter Visit Diagnoses Diagnosis Rheumatoid arthritis(714.0) (CMS/HCC)- Primary Rheumatoid arthritis Encounter for long-term (current) use of other medications Screening examination for pulmonary tuberculosis documented in this encounter Care Teams Maintenance Craftsman Relationship Specialty Start Date End Date Inga Sullivan, ALCON [facility] [place] [address] PCP - General 09/20/08 documented as of this encounter
--- OUTSIDE RECORDS SUMMARY | 2025-06-25 09:07 | XMS_ITS | Encounter Summary ---
Author Organization [facility] Address [address] [place] [address] Care Team Providers Care Fixture Builder Name Role Phone Inga Sullivan MITTEN STITCHER Primary Care Provider [phone] Encounter Details Date Type Department Care Team (Late st Contact Info) Description 09/07/2007 Outpatient Historical [facility] Rheumatology- [place] [facility] [place] [facility] [address] [place] [address] Randy Díaz, DO [address] 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
--- OUTSIDE RECORDS SUMMARY | 2025-06-25 09:07 | XMS_ITS | Encounter Summary ---
Author Organization [facility] Address [address] [place] [address] Care Team Providers Care Back Up Worker Name Role Phone Inga Sullivan RESEARCH LABORATORY MANAGER Primary Care Provider [phone] Encounter Details Date Type Department Care Team (Late st Contact Info) Description 10/26/2005 Outpatient Historical [facility] Rheumatology- [facility] [place] [address] [place] [address] Randy Díaz, DO [address] [facility] [address] [place] [address] RHEUMATOID ARTHRITIS (CMS/HCC) (Primary Dx); MALAISE AND FATIGUE NEC; AFTERCARE CUSTODIAL USE MEDICATN Social History Tobacco Use Types Packs/Day Years Used Date Smoking Tobacco: Never Assessed Comments Unknown Sex and Gender Information Value Date Recorded Sex Assigned at Not on file 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
--- OUTSIDE RECORDS SUMMARY | 2025-06-25 09:07 | XMS_ITS | Encounter Summary ---
Author Organization [facility] Address [address] [place] [address] Care Team Providers Care Digital Asset Specialist Name Role Phone Inga Sullivan PHOTOGRAPHIC PROCESS ATTENDANT Primary Care Provider [phone] Encounter Details Date Type Department Care Team (Late st Contact Info) Description 04/14/2002 Outpatient Historical [facility]-Janusz [place] [address] [place] [address] Randy Díaz, DO [address] [facility] [address] [place] [address] RHEUMATOID ARTHRITIS (CMS/[facility]) (Primary Dx) Social History Tobacco Use Types Packs/Day Years Used Date Smoking Tobacco: Never Assessed Comments Unknown Sex and Gender Information Value Date Recorded Sex Assigned at Not on file Legal Sex Female 5:44 AM FURNACE CARETAKER Gender Identity Not on file Sexual Orientation Not on file documented as of this encounter Plan of Treatment Not on file documented as of this encounter Visit Diagnoses Diagnosis Rheumatoid arthritis(714.0) (CMS/HCC)- Primary Rheumatoid arthritis documented in this encounter Care Teams Digital Asset Specialist Relationship Specialty Start Date End Date Inga Sullivan NP [address] [place] [address] PCP - General 09/20/08 documented as of this encounter
--- OUTSIDE RECORDS SUMMARY | 2025-06-25 09:07 | XMS_ITS | Encounter Summary ---
Author Organization [facility] Address [address] [place] [address] Care Team Providers Care Publication Manager Name Role Phone Inga Sullivan INDEPENDENT LIVING ADVISOR Primary Care Provider [phone] Encounter Details Date Type Department Care Team (Late st Contact Info) Description 09/06/2002 Outpatient Historical [facility] Rheumatology- [place] Ravindra [place] [address] [place] [address] Randy Díaz, DO [address] [facility] [address] [place] [address] RHEUMATOID ARTHRITIS (CMS/[facility]) (Primary Dx); JOINT PAIN-L/LEG; JOINT EFFUSION-L/LEG; AFTERCARE NURSING HOME USE MEDICATN Social History Tobacco Use Types Packs/Day Years Used Date Smoking Tobacco: Never Assessed Comments Unknown Sex and Gender Information Value Date Recorded Sex Assigned at Not on file Legal Sex Female 5:44 AM 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
--- OUTSIDE RECORDS SUMMARY | 2025-06-25 09:07 | XMS_ITS | Encounter Summary ---
Author Organization [facility] Address [address] [place] [address] Care Team Providers Care Linux System Engineer Name Role Phone Inga Sullivan MATERIALS SCIENTIST Primary Care Provider [phone] Encounter Details Date Type Department Care Team (Late st Contact Info) Description 03/15/2003 Outpatient Historical [facility] Rheumatology- [place] Ravindra [place] [address] [place] [address] Randy Díaz, [address] [facility] [address] [place] [phone] RHEUMATOID ARTHRITIS (CMS/[facility]) (Primary Dx); AFTERCARE [facility] USE MEDICATN Social History Tobacco Use Types Packs/Day Years Used Date Smoking Tobacco: Never Assessed Comments Unknown Sex and Gender Information Value Date Recorded Sex Assigned at Not on file Legal Sex Female 5:44 AM OPERATIONAL RISK MANAGER Gender Identity Not on file Sexual Orientation Not on file documented as of this encounter Plan of Treatment Not on file documented as of this encounter Visit Diagnoses Diagnosis Rheumatoid arthritis(714.0) (CMS/HCC)- Primary Rheumatoid arthritis Encounter for long-term (current) use of other medications documented in this encounter Care Teams Linux System Engineer Relationship Specialty Start Date End Date Inga Sullivan NP [address] [place] [id number] PCP - General 09/20/08 documented as of this encounter
--- OUTSIDE RECORDS SUMMARY | 2025-06-25 09:07 | XMS_ITS | Encounter Summary ---
Author Organization [facility] Address [address] [place] [address] Care Team Providers Care Rn Disease Management Name Role Phone Inga Sullivan DIE KEEPER Primary Care Provider [phone] Encounter Details Date Type Department Care Team (Late st Contact Info) Description 04/12/2006 Outpatient Historical [facility] Rheumatology- [place] [facility] [place] [address] [place] [address] Randy Díaz, [address] [facility] [address] [place] [address] Rheumatoid Arthritis (CMS/[facility]) (Primary Dx); Encounter for Long-Term (Current) Use of Other Medications Social History Tobacco Use Types Packs/Day Years Used Date Smoking Tobacco: Never Assessed Comments Unknown Sex and Gender Information Value Date Recorded Sex Assigned at Not on file 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
--- OUTSIDE RECORDS SUMMARY | 2025-06-25 09:07 | XMS_ITS | Encounter Summary ---
Author Organization [facility] Address [address] [place] [address] Care Team Providers Care Billboard Poster Name Role Phone Inga Sullivan WINDSHIELD TECHNICIAN Primary Care Provider [phone] Encounter Details Date Type Department Care Team (Late st Contact Info) Description 01/17/[address] [facility] Rheumatology- [facility] [place] [address] [place] [address] Randy Díaz, [address] [facility] [address] [place] [address] Rheumatoid Arthritis (CMS/[facility]) (Primary Dx); Encounter for Long-Term (Current) Use of Other Medications Social History Tobacco Use Types Packs/Day Years Used Date Smoking Tobacco: Never Assessed Comments Unknown Sex and Gender Information Value Date Recorded Sex Assigned at Not on file Legal Sex Female 5:44 AM CLOTH CLASSER Gender Identity Not on file Sexual Orientation Not on file documented as of this encounter Plan of Treatment Not on file documented as of this encounter Visit Diagnoses Diagnosis Rheumatoid arthritis(714.0) (CMS/HCC)- Primary Rheumatoid arthritis Encounter for long-term (current) use of other medications documented in this encounter Care Teams Billboard Poster Relationship Specialty Start Date End Date Inga Sullivan, [place] [address] [place] [id number] PCP - General 09/20/08 documented as of this encounter
--- OUTSIDE RECORDS SUMMARY | 2025-06-25 09:07 | XMS_ITS | Encounter Summary ---
Author Organization [facility] Address [address] [place] [address] Care Team Providers Care Simulation Educator Name Role Phone Inga Sullivan FELLING MACHINE OPERATOR Primary Care Provider [phone] Encounter Details Date Type Department Care Team (Late st Contact Info) Description 03/15/2003 Outpatient Historical [facility] Rheumatology- [facility] [place] [address] [place] [address] Randy Díaz, [address] [facility] [address] [place] [address] RHEUMATOID ARTHRITIS (CMS/[facility]) (Primary Dx); ALOPECIA NEC; AFTERCARE SNF USE MEDICATN Social History Tobacco Use Types Packs/Day Years Used Date Smoking Tobacco: Never Assessed Comments Unknown Sex and Gender Information Value Date Recorded Sex Assigned at Not on file Legal Sex Female 5:44 AM PEDIATRIC RN Gender Identity Not on file Sexual Orientation Not on file documented as of this encounter Plan of Treatment Not on file documented as of this encounter Visit Diagnoses Diagnosis Rheumatoid arthritis(714.0) (CMS/HCC)- Primary Rheumatoid arthritis Other alopecia Encounter for long-term (current) use of other medications documented in this encounter Care Teams Simulation Educator Relationship Specialty Start Date End Date Inga Sullivan, [place] [address] [place] [address] PCP - General 09/20/08 documented as of this encounter
--- OUTSIDE RECORDS SUMMARY | 2025-06-25 09:07 | XMS_ITS | Encounter Summary ---
Author Organization [facility] Address [address] [place] [address] Care Team Providers Care Pumper Gager Apprentice Name Role Phone Inga Sullivan [employer]AN Primary Care Provider [phone] Encounter Details Date Type Department Care Team (Late st Contact Info) Description 05/14/2003 Outpatient Historical [facility] Rheumatology- [place] Ravindra [place] [address] [place] [address] Randy Díaz, [address] [facility] [address] [place] [address] RHEUMATOID ARTHRITIS (CMS/[facility]) (Primary Dx); AFTERCARE [facility] USE MEDICATN Social History Tobacco Use Types Packs/Day Years Used Date Smoking Tobacco: Never Assessed Comments Unknown Sex and Gender Information Value Date Recorded Sex Assigned at Not on file Legal Sex Female 5:44 AM SPRING BENDER Gender Identity Not on file Sexual Orientation Not on file documented as of this encounter Plan of Treatment Not on file documented as of this encounter Visit Diagnoses Diagnosis Rheumatoid arthritis(714.0) (CMS/HCC)- Primary Rheumatoid arthritis Encounter for long-term (current) use of other medications documented in this encounter Care Teams Pumper Gager Apprentice Relationship Specialty Start Date End Date Inga Sullivan NP [address] [place] [address] PCP - General 09/20/08 documented as of this encounter
--- OUTSIDE RECORDS SUMMARY | 2025-06-25 09:07 | XMS_ITS | Encounter Summary ---
Author Organization [facility] Address [address] [place] [address] Care Team Providers Care Architectural Inspector Name Role Phone Inga Sullivan PERSONNEL TECHNICIAN Primary Care Provider [phone] Encounter Details Date Type Department Care Team (Late st Contact Info) Description 03/12/2005 Outpatient Historical [facility] Rheumatology- [place] Ravindra [place] [address] [place] [address] Randy Díaz, DO [address] [facility] [address] [place] [address] JOINT PAIN-MULT JTS (Primary Dx); RHEUMATOID ARTHRITIS (CMS/HCC); AFTERCARE RESIDENTIAL USE MEDICATN Social History Tobacco Use Types Packs/Day Years Used Date Smoking Tobacco: Never Assessed Comments Unknown Sex and Gender Information Value Date Recorded Sex Assigned at Not on file Legal Sex Female 5:44 AM SUPERINTENDENT TRANSPORTATION Gender Identity Not on file Sexual Orientation Not on file documented as of this encounter Plan of Treatment Not on file documented as of this encounter Visit Diagnoses Diagnosis Pain in joint, multiple sites- Primary Rheumatoid arthritis(714.0) (CMS/HCC) Rheumatoid arthritis Encounter for long-term (current) use of other medications documented in this encounter Care Teams Architectural Inspector Relationship Specialty Start Date End Date Inga Sullivan, PERSONNEL TECHNICIAN [address] [place] [address] PCP - General 09/20/08 documented as of this encounter
--- OUTSIDE RECORDS SUMMARY | 2025-06-25 09:07 | XMS_ITS | Encounter Summary ---
Author Organization [facility] Address [address] [place] [address] Care Team Providers Care Head Baker Name Role Phone Inga Sullivan NUTRITION TECHNICIAN Primary Care Provider [phone] Encounter Details Date Type Department Care Team (Late st Contact Info) Description 06/07/2006 Outpatient Historical [facility] Rheumatology- [facility] [place] [address] [place] [address] Randy Díaz, [address] [facility] [address] [place] [address] Rheumatoid Arthritis (CMS/[facility]) (Primary Dx); Encounter for Long-Term (Current) Use of Other Medications Social History Tobacco Use Types Packs/Day Years Used Date Smoking Tobacco: Never Assessed Comments Unknown Sex and Gender Information Value Date Recorded Sex Assigned at Not on file Legal Sex Female 5:44 AM HOT STICK MAN Gender Identity Not on file Sexual Orientation Not on file documented as of this encounter Plan of Treatment Not on file documented as of this encounter Visit Diagnoses Diagnosis Rheumatoid arthritis(714.0) (CMS/HCC)- Primary Rheumatoid arthritis Encounter for long-term (current) use of other medications documented in this encounter Care Teams Head Baker Relationship Specialty Start Date End Date Inga Sullivan, [place] [address] [place] [address] PCP - General 09/20/08 documented as of this encounter
--- OUTSIDE RECORDS SUMMARY | 2025-06-25 09:07 | XMS_ITS | Encounter Summary ---
Author Organization [facility] Address [address] [place] [address] Care Team Providers Care Lubricator Granulator Name Role Phone Inga Sullivan SWEATER DESIGNER Primary Care Provider [phone] Encounter Details Date Type Department Care Team (Late st Contact Info) Description 01/26/2003 Outpatient Historical [facility] Rheumatology- [place] Ravindra [place] [address] [place] [address] Randy Díaz, [address] [facility] [address] [place] [address] RHEUMATOID ARTHRITIS (CMS/[facility]) (Primary Dx); AFTERCARE SENIOR CARE USE MEDICATN Social History Tobacco Use Types Packs/Day Years Used Date Smoking Tobacco: Never Assessed Comments Unknown Sex and Gender Information Value Date Recorded Sex Assigned at Not on file Legal Sex Female 5:44 AM PENSION AGENT Gender Identity Not on file Sexual Orientation Not on file documented as of this encounter Plan of Treatment Not on file documented as of this encounter Visit Diagnoses Diagnosis Rheumatoid arthritis(714.0) (CMS/HCC)- Primary Rheumatoid arthritis Encounter for long-term (current) use of other medications documented in this encounter Care Teams Lubricator Granulator Relationship Specialty Start Date End Date Inga Sullivan NP [address] [place] [address] PCP - General 09/20/08 documented as of this encounter
--- OUTSIDE RECORDS SUMMARY | 2025-06-25 09:07 | XMS_ITS | Encounter Summary ---
Author Organization [facility] Address [address] [place] [address] Care Team Providers Care Architectural Coating Finisher Name Role Phone Inga Sullivan ECHO TECHNOLOGIST Primary Care Provider [phone] Encounter Details Date Type Department Care Team (Late st Contact Info) Description 09/29/2002 Outpatient Historical [facility] Rheumatology- [place] Ravindra [place] [address] [place] [address] Randy Díaz, [address] [facility] [address] [place] [address] RHEUMATOID ARTHRITIS (CMS/[facility]) (Primary Dx); JOINT PAIN-MULT JTS; SYNOVITIS NOS Social History Tobacco Use Types Packs/Day Years Used Date Smoking Tobacco: Never Assessed Comments Unknown Sex and Gender Information Value Date Recorded Sex Assigned at Not on file Legal Sex Female 5:44 AM REGISTERED MAIL CLERK Gender Identity Not on file Sexual Orientation Not on file documented as of this encounter Plan of Treatment Not on file documented as of this encounter Visit Diagnoses Diagnosis Rheumatoid arthritis(714.0) (CMS/HCC)- Primary Rheumatoid arthritis Pain in joint, multiple sites Synovitis and tenosynovitis, unspecified documented in this encounter Care Teams Architectural Coating Finisher Relationship Specialty Start Date End Date Inga Sullivan, [place] [address] [place] [address] PCP - General 09/20/08 documented as of this encounter
--- OUTSIDE RECORDS SUMMARY | 2025-06-25 09:08 | XMS_ITS | Encounter Summary ---
Author Organization [facility] Address [address] [place] [address] Care Team Providers Care Screen Room Operator Name Role Phone Inga Sullivan POCKET AND PULLEY MACHINE OPERATOR Primary Care Provider [phone] Encounter Details Date Type Department Care Team (Late st Contact Info) Description 06/10/2004 Outpatient Historical [facility] Rheumatology- [place] Ravindra [place] [address] [place] [address] Randy Díaz, [address] [facility] [address] [place] [address] RHEUMATOID ARTHRITIS (CMS/[facility]) (Primary Dx); AFTERCARE ALF USE MEDICATN Social History Tobacco Use Types Packs/Day Years Used Date Smoking Tobacco: Never Assessed Comments Unknown Sex and Gender Information Value Date Recorded Sex Assigned at Not on file Legal Sex Female 5:44 AM ARCHITECT INTERN Gender Identity Not on file Sexual Orientation Not on file documented as of this encounter Plan of Treatment Not on file documented as of this encounter Visit Diagnoses Diagnosis Rheumatoid arthritis(714.0) (CMS/HCC)- Primary Rheumatoid arthritis Encounter for long-term (current) use of other medications documented in this encounter Care Teams Screen Room Operator Relationship Specialty Start Date End Date Inga Sullivan NP [address] [place] [address] PCP - General 09/20/08 documented as of this encounter
--- OUTSIDE RECORDS SUMMARY | 2025-06-25 09:08 | XMS_ITS | Encounter Summary ---
Author Organization [facility] Address [address] [place] [address] Care Team Providers Care Supervisor Dimension Warehouse Name Role Phone Inga Sullivan HOT TAR ROOFER HELPER Primary Care Provider [phone] Encounter Details Date Type Department Care Team (Late st Contact Info) Description 11/25/[address] [facility] Rheumatology- [place] Ravindra [place] [address] [place] [address] Randy Díaz, [address] [facility] [address] [place] [address] RHEUMATOID ARTHRITIS (CMS/[facility]) (Primary Dx); AFTERCARE HALFWAY USE MEDICATN Social History Tobacco Use Types Packs/Day Years Used Date Smoking Tobacco: Never Assessed Comments Unknown Sex and Gender Information Value Date Recorded Sex Assigned at Not on file Legal Sex Female 5:44 AM DAUB COLOR MIXER Gender Identity Not on file Sexual Orientation Not on file documented as of this encounter Plan of Treatment Not on file documented as of this encounter Visit Diagnoses Diagnosis Rheumatoid arthritis(714.0) (CMS/HCC)- Primary Rheumatoid arthritis Encounter for long-term (current) use of other medications documented in this encounter Care Teams Supervisor Dimension Warehouse Relationship Specialty Start Date End Date Inga Sullivan NP [address] [place] [address] PCP - General 09/20/08 documented as of this encounter
--- OUTSIDE RECORDS SUMMARY | 2025-06-25 09:08 | XMS_ITS | Encounter Summary ---
Author Organization [facility] Address [address] [place] [address] Care Team Providers Care Hog Sticker Name Role Phone Inga Sullivan MEDICAL ASSISTING INSTRUCTOR Primary Care Provider [phone] Encounter Details Date Type Department Care Team (Late st Contact Info) Description 02/19/2004 Outpatient Historical [facility] Rheumatology- [place] Ravindra [place] [address] [place] [address] Randy Díaz, [address] [facility] [address] [place] [address] RHEUMATOID ARTHRITIS (CMS/[facility]) (Primary Dx); AFTERCARE SNF USE MEDICATN Social History Tobacco Use Types Packs/Day Years Used Date Smoking Tobacco: Never Assessed Comments Unknown Sex and Gender Information Value Date Recorded Sex Assigned at Not on file Legal Sex Female 5:44 AM BOBBIN WINDER TENDER Gender Identity Not on file Sexual Orientation Not on file documented as of this encounter Plan of Treatment Not on file documented as of this encounter Visit Diagnoses Diagnosis Rheumatoid arthritis(714.0) (CMS/HCC)- Primary Rheumatoid arthritis Encounter for long-term (current) use of other medications documented in this encounter Care Teams Hog Sticker Relationship Specialty Start Date End Date Inga Sullivan NP [address] [place] [address] PCP - General 09/20/08 documented as of this encounter
--- OUTSIDE RECORDS SUMMARY | 2025-06-25 09:08 | XMS_ITS | Encounter Summary ---
Author Organization [facility] Address [address] [place] [address] Care Team Providers Care Fourdrinier Operator Name Role Phone Inga Sullivan CEMENTER HAND Primary Care Provider [phone] Encounter Details Date Type Department Care Team (Late st Contact Info) Description 10/26/2005 Outpatient Historical [facility] Rheumatology- [place] Ravindra [place] [address] [place] [address] Randy Díaz, [address] [facility] [address] [place] [address] RHEUMATOID ARTHRITIS (CMS/[facility]) (Primary Dx); [facility] USE MEDICATN Social History Tobacco Use Types Packs/Day Years Used Date Smoking Tobacco: Never Assessed Comments Unknown Sex and Gender Information Value Date Recorded Sex Assigned at Not on file Legal Sex Female 5:44 AM PRACTICING MD ANESTHESIOLOGIST Gender Identity Not on file Sexual Orientation Not on file documented as of this encounter Plan of Treatment Not on file documented as of this encounter Visit Diagnoses Diagnosis Rheumatoid arthritis(714.0) (CMS/HCC)- Primary Rheumatoid arthritis Encounter for long-term (current) use of other medications documented in this encounter Care Teams Fourdrinier Operator Relationship Specialty Start Date End Date Inga Sullivan NP [address] [place] [id number] PCP - General 09/20/08 documented as of this encounter
--- OUTSIDE RECORDS SUMMARY | 2025-06-25 09:08 | XMS_ITS | Encounter Summary ---
Author Organization [facility] Address [address] [place] [address] Care Team Providers Care Police Lieutenant Precinct Name Role Phone Inga Sullivan SENIOR MANAGER MMCOE Primary Care Provider [phone] Encounter Details Date Type Department Care Team (Late st Contact Info) Description 04/15/2004 Outpatient Historical [facility] Rheumatology- [place] Ravindra [place] [address] [place] [address] Randy Díaz, [address] [facility] [address] [place] [address] RHEUMATOID ARTHRITIS (CMS/[facility]) (Primary Dx); AFTERCARE HALF-WAY USE MEDICATN Social History Tobacco Use Types Packs/Day Years Used Date Smoking Tobacco: Never Assessed Comments Unknown Sex and Gender Information Value Date Recorded Sex Assigned at Not on file Legal Sex Female 5:44 AM BORDER MEASURER Gender Identity Not on file Sexual Orientation Not on file documented as of this encounter Plan of Treatment Not on file documented as of this encounter Visit Diagnoses Diagnosis Rheumatoid arthritis(714.0) (CMS/HCC)- Primary Rheumatoid arthritis Encounter for long-term (current) use of other medications documented in this encounter Care Teams Police Lieutenant Precinct Relationship Specialty Start Date End Date Inga Sullivan NP [address] [place] [address] PCP - General 09/20/08 documented as of this encounter
--- OUTSIDE RECORDS SUMMARY | 2025-06-25 09:08 | XMS_ITS | Encounter Summary ---
Author Organization [facility] Address [address] [place] [address] Care Team Providers Care Bank Vault Custodian Name Role Phone Inga Sullivan CONSULTING TECHNICAL MANAGER Primary Care Provider [phone] Encounter Details Date Type Department Care Team (Late st Contact Info) Description 09/01/2005 Outpatient Historical [facility] Rheumatology- [place] Ravindra [place] [address] [place] [address] Randy Díaz, [address] [facility] [address] [place] [address] RHEUMATOID ARTHRITIS (CMS/[facility]) (Primary Dx); AFTERCARE LONG-TERM USE MEDICATN Social History Tobacco Use Types Packs/Day Years Used Date Smoking Tobacco: Never Assessed Comments Unknown Sex and Gender Information Value Date Recorded Sex Assigned at Not on file Legal Sex Female 5:44 AM ARMAMENT INSTALLER Gender Identity Not on file Sexual Orientation Not on file documented as of this encounter Plan of Treatment Not on file documented as of this encounter Visit Diagnoses Diagnosis Rheumatoid arthritis(714.0) (CMS/HCC)- Primary Rheumatoid arthritis Encounter for long-term (current) use of other medications documented in this encounter Care Teams Bank Vault Custodian Relationship Specialty Start Date End Date Inga Sullivan NP [address] [place] [address] PCP - General 09/20/08 documented as of this encounter
--- OUTSIDE RECORDS SUMMARY | 2025-06-25 09:08 | XMS_ITS | Encounter Summary ---
Author Organization [facility] Address [address] [place] [address] Care Team Providers Care Computed Tomography Technologist Name Role Phone Inga Sullivan PLASTIC PRESS MOLDER Primary Care Provider [phone] Encounter Details Date Type Department Care Team (Late st Contact Info) Description 03/12/2005 Outpatient Historical [facility] Rheumatology- [place] Ravindra [place] [address] [place] [address] Randy Díaz, [address] [facility] [address] [place] [address] RHEUMATOID ARTHRITIS (CMS/[facility]) (Primary Dx); AFTERCARE LONG-TERM USE MEDICATN Social History Tobacco Use Types Packs/Day Years Used Date Smoking Tobacco: Never Assessed Comments Unknown Sex and Gender Information Value Date Recorded Sex Assigned at Not on file Legal Sex Female 5:44 AM OCC MED PHYSICIAN Gender Identity Not on file Sexual Orientation Not on file documented as of this encounter Plan of Treatment Not on file documented as of this encounter Visit Diagnoses Diagnosis Rheumatoid arthritis(714.0) (CMS/HCC)- Primary Rheumatoid arthritis Encounter for long-term (current) use of other medications documented in this encounter Care Teams Computed Tomography Technologist Relationship Specialty Start Date End Date Inga Sullivan NP [address] [place] [address] PCP - General 09/20/08 documented as of this encounter
--- OUTSIDE RECORDS SUMMARY | 2025-06-25 09:08 | XMS_ITS | Encounter Summary ---
Author Organization [facility] Address [address] [place] [address] Care Team Providers Care Test Bore Helper Name Role Phone Inga Sullivan DIRT BIKE RACER Primary Care Provider [phone] Encounter Details Date Type Department Care Team (Late st Contact Info) Description 10/19/2007 Outpatient Historical [facility] Rheumatology- [facility] [place] [address] [place] [address] Randy Díaz, DO [address] [facility] [address] [place] [address] Social History Tobacco Use Types Packs/Day Years Used Date Smoking Tobacco: Never Assessed Comments Unknown Sex and Gender Information Value Date Recorded Sex Assigned at Not on file Legal Sex Female 5:44 AM JAVA FLEX DEVELOPER Gender Identity Not on file Sexual Orientation Not on file documented as of this encounter Plan of Treatment Not on file documented as of this encounter Visit Diagnoses Not on filedocumented in this encounter Care Teams Test Bore Helper Relationship Specialty Start Date End Date Inga Sullivan NP [address] [place] [address] PCP - General 09/20/08 documented as of this encounter
--- OUTSIDE RECORDS SUMMARY | 2025-06-25 09:08 | XMS_ITS | Encounter Summary ---
Author Organization [facility] Address [address] [place] [address] Care Team Providers Care Junior Account Manager Name Role Phone Inga Sullivan FIBERGLASS BOAT BUILDER Primary Care Provider [phone] Encounter Details Date Type Department Care Team (Late st Contact Info) Description 05/11/2005 Outpatient Historical [facility] Rheumatology- [place] Ravindra [place] [address] [place] [address] Randy Díaz, [address] [facility] [address] [place] [address] RHEUMATOID ARTHRITIS (CMS/[facility]) (Primary Dx); AFTERCARE HALFWAY USE MEDICATN Social History Tobacco Use Types Packs/Day Years Used Date Smoking Tobacco: Never Assessed Comments Unknown Sex and Gender Information Value Date Recorded Sex Assigned at Not on file Legal Sex Female 5:44 AM PRODUCTION TESTER Gender Identity Not on file Sexual Orientation Not on file documented as of this encounter Plan of Treatment Not on file documented as of this encounter Visit Diagnoses Diagnosis Rheumatoid arthritis(714.0) (CMS/HCC)- Primary Rheumatoid arthritis Encounter for long-term (current) use of other medications documented in this encounter Care Teams Junior Account Manager Relationship Specialty Start Date End Date Inga Sullivan NP [address] [place] [address] PCP - General 09/20/08 documented as of this encounter
--- OUTSIDE RECORDS SUMMARY | 2025-06-25 09:08 | XMS_ITS | Encounter Summary ---
Author Organization [facility] Address [address] [place] [address] Care Team Providers Care Cross Cut Sawyer Name Role Phone Inga Sullivan DENTAL CREAM MAKER Primary Care Provider [phone] Encounter Details Date Type Department Care Team (Late st Contact Info) Description 12/31/2004 Outpatient Historical [facility] Rheumatology- [place] Ravindra [place] [address] [place] [address] Randy Díaz, [address] [place] [address] RHEUMATOID ARTHRITIS (CMS/[facility]) (Primary Dx); AFTERCARE HALF-WAY USE MEDICATN Social History Tobacco Use Types Packs/Day Years Used Date Smoking Tobacco: Never Assessed Comments Unknown Sex and Gender Information Value Date Recorded Sex Assigned at Not on file Legal Sex Female 5:44 AM PUNCH PRESS OPERATOR Gender Identity Not on file Sexual Orientation Not on file documented as of this encounter Plan of Treatment Not on file documented as of this encounter Visit Diagnoses Diagnosis Rheumatoid arthritis(714.0) (CMS/HCC)- Primary Rheumatoid arthritis Encounter for long-term (current) use of other medications documented in this encounter Care Teams Cross Cut Sawyer Relationship Specialty Start Date End Date Inga Sullivan NP [address] [place] [id number] PCP - General 09/20/08 documented as of this encounter
--- OUTSIDE RECORDS SUMMARY | 2025-06-25 09:08 | XMS_ITS | Encounter Summary ---
Author Organization [facility] Address [address] [place] [address] Care Team Providers Care Physician Asst Name Role Phone Inga Sullivan CONTINUITY TESTER Primary Care Provider [phone] Encounter Details Date Type Department Care Team (Late st Contact Info) Description 10/19/2007 Outpatient Historical [facility] Rheumatology- [facility] [place] [address] [place] [address] Randy Díaz, DO [address] [place] [address] Social History Tobacco Use Types Packs/Day Years Used Date Smoking Tobacco: Never Assessed Comments Unknown Sex and Gender Information Value Date Recorded Sex Assigned at Not on file Legal Sex Female 5:44 AM PHLEBOTOMIST ASSOCIATE Gender Identity Not on file Sexual [...] far. She reports only mild degree of early childhood educator aide stiffness, generally lasting no longer than 15 [...] She seems to have increased bilateral hand strawhat inspector and packer strength. No further tenderness is noted over [...] , 9:01 A P, 580 Document #: [id number] cc: Jovani Chavis M.D. BOTOMIST ASSOCIATE documented in this encounter Plan of Treatment Not on file documented as of this encounter Procedures Procedure Name Priority Date/Time Associated Diagnosis Comments CBC WITH DIFFERENTIAL Routine 10/19/2007 10:49 AM PHLEBOTOMIST ASSOCIATE C-REACTIVE PROTEIN Routine 10/19/2007 10 :49 AM PHLEBOTOMIST ASSOCIATE HEPATIC FUNCTION PANEL Routine 10/19/2007 10:49 AM PHLEBOTOMIST ASSOCIATE documented in this encounter Results * (ABNORMAL) HEPATIC FUNCTION PANEL (10/19/2007 10:49 AM PHLEBOTOMIST ASSOCIATE) TOTAL PROTEIN 7.1 5.9 - 8.2 G/DL [facility] ALBUMIN 3.9 3.4 - 4.8 G/DL [facility] AST 19 12 - 32 IU/L [facility] ALT 14 4 - 36 IU/L [facility] ALKALINE PHOSPHATASE 63 35 - 104 IU/L [facility] BILIRUBIN TOTAL 0.1(L) 0.2 - 1.0 MG/DL [facility] BILIRUBIN DIRECT <0.1 0.0 - 0.3 MG/DL [facility] 10/19/2007 10:4 9 AM PHLEBOTOMIST ASSOCIATE 10/19/2007 10:54 AM PHLEBOTOMIST ASSOCIATE us Randy Díaz DO CHEMISTRY ORDERABLES Final Res ult [facility]# [id number] [address] [place] [address] * C-REACTIVE PROTEIN (10/19/2007 10:49 AM PHLEBOTOMIST ASSOCIATE) CRP 0.5 <0.8 MG/DL [facility] CRP <0.8 MG/DL NEGATIVE 0.9- 4.0 MG/DL MILD INFLAMMATION SOME VIRAL INFECTIONS 4.1-20.0 MG/DL ACUTE INFLAMMATION >30.0 MG/DL BACTERIAL INFECTIONS EXTENSIVE TRAUMA THIS IS A STANDARD CRP METHOD, AND IS NOT INTENDED A MARKER FOR HEART DISEASE. THIS TEST CANNOT BE USED TO ASSESS CARDIAC RISK. [facility] 10/19/2007 10:4 9 AM PHLEBOTOMIST ASSOCIATE 10/19/2007 10:54 AM PHLEBOTOMIST ASSOCIATE us Randy Díaz DO CHEMISTRY ORDERABLES Final Res ult [facility] CLIA# [id number] [address] [place] [address] * (ABNORMAL) CBC WITH DIFFERENTIAL (10/19/2007 10:49 AM PHLEBOTOMIST ASSOCIATE) Pathologist [facility] WBC 10.8 4.5 - 11.0 K/UL [facility] RBC 4.51 4.2 - 5.4 M/UL [facility] HEMOGLOBIN 12.6 12.0 - 16.0 G/DL [facility] HEMATOCRIT 39.1 36 - 46 % [facility] MCV 86.7 82 - 100 FL [facility] MCH 27.9 27 - 34 PG [facility] MCHC 32.2 31 - 37 G/DL [facility] RDW 16.2(H) 11 - 14.5 % [facility] PLATELETS 237 140 - 440 K/UL [facility] MPV 9.4 8.9 - 12.8 FL [facility] NEUTROPHILS 52.7 42.2 - 75.2 % [facility] LYMPHOCYTES 38.9 24 - 44 % [facility] MONOCYTES 6.6 2 - 10 % [facility] EOSINOPHILS 1.3 0 - 7 % [facility] BASOPHILS 0.5 0 - 1 % [facility] NEUTROPHIL ABSOLUTE 5.7 1.4 - 6.5 K/uL [facility] LYMPHOCYTE ABSOLUTE 4.2(H) 1.2 - 4.0 K/UL [facility] MONOCYTE ABSOLUTE 0.7(H) 0.1 - 0.6 K/UL [facility] EOSINOPHIL ABSOLUTE 0.1 0 - 0.7 K/UL [facility] BASOPHILS ABSOLUTE 0.1 0 - 0.2 K/UL [facility] 10/19/2007 10:4 9 AM PHLEBOTOMIST ASSOCIATE 10/19/2007 10:54 AM PHLEBOTOMIST ASSOCIATE Randy Díaz DO HEMATOLOGY ORDERABLES Final Re sult [facility] CLIA# [id number] [address] [place] [address] documented in this encounter Visit Diagnoses Not on filedocumented in this encounter Care Teams Physician Asst Relationship Specialty Start Date End Date Inga Sullivan NP [address] [place], [place] [id number] PCP - General 09/20/08 documented as of this encounter
--- OUTSIDE RECORDS SUMMARY | 2025-06-25 09:08 | XMS_ITS | Encounter Summary ---
Author Organization [facility] Address [address] [place] [address] Care Team Providers Care Straw Hat Brim Cutter Operator Name Role Phone Inga Sullivan [address] LIGHT Primary Care Provider [phone] Encounter Details Date Type Department Care Team (Late st Contact Info) Description 07/14/2005 Outpatient Historical [facility] Rheumatology- [facility] [place] [address] [place] [address] Randy Díaz, [address] [place] [address] RHEUMATOID ARTHRITIS (CMS/[facility]) (Primary Dx); AFTERCARE LONGTERM USE MEDICATN Social History Tobacco Use Types Packs/Day Years Used Date Smoking Tobacco: Never Assessed Comments Unknown Sex and Gender Information Value Date Recorded Sex Assigned at Not on file Legal Sex Female 5:44 AM MILK RUNNER Gender Identity Not on file Sexual Orientation Not on file documented as of this encounter Plan of Treatment Not on file documented as of this encounter Visit Diagnoses Diagnosis Rheumatoid arthritis(714.0) (CMS/HCC)- Primary Rheumatoid arthritis Encounter for long-term (current) use of other medications documented in this encounter Care Teams Straw Hat Brim Cutter Operator Relationship Specialty Start Date End Date Inga Sullivan NP [address] [place] [address] PCP - General 09/20/08 documented as of this encounter
--- OUTSIDE RECORDS SUMMARY | 2025-06-25 09:08 | XMS_ITS | Encounter Summary ---
Author Organization [facility] Address [address] [place] [address] Care Team Providers Care Shift Supervisor Film Processing Name Role Phone Inga Sullivan STUDENT EDUCATION SPECIALIST Primary Care Provider [phone] Encounter Details Date Type Department Care Team (Late st Contact Info) Description 09/30/2004 Outpatient Historical [facility] Rheumatology- [place] Ravindra [place] [address] [place] [address] Randy Díaz, [address] [facility] [address] [place] [address] RHEUMATOID ARTHRITIS (CMS/[facility]) (Primary Dx); AFTERCARE [facility] USE MEDICATN Social History Tobacco Use Types Packs/Day Years Used Date Smoking Tobacco: Never Assessed Comments Unknown Sex and Gender Information Value Date Recorded Sex Assigned at Not on file Legal Sex Female 5:44 AM PROFESSOR OF SURGERY Gender Identity Not on file Sexual Orientation Not on file documented as of this encounter Plan of Treatment Not on file documented as of this encounter Visit Diagnoses Diagnosis Rheumatoid arthritis(714.0) (CMS/HCC)- Primary Rheumatoid arthritis Encounter for long-term (current) use of other medications documented in this encounter Care Teams Shift Supervisor Film Processing Relationship Specialty Start Date End Date Inga Sullivan NP [address] [place] [address] PCP - General 09/20/08 documented as of this encounter
--- OUTSIDE RECORDS SUMMARY | 2025-06-25 09:08 | XMS_ITS | Encounter Summary ---
Author Organization [facility] Address [address] [place] [address] Care Team Providers Care Skein Mercerizing Machine Operator Name Role Phone Inga Sullivan MAINSPRING TORQUE TESTER Primary Care Provider Encounter Details Date Type Department Care Team (Late st Contact Info) Description 08/05/2004 Outpatient Historical [facility] Rheumatology- [place] Ravindra [place] [address] [place] [address] Randy Díaz, [address] [place] [address] RHEUMATOID ARTHRITIS (CMS/[facility]) (Primary Dx); AFTERCARE INTERMEDIATE USE MEDICATN Social History Tobacco Use Types Packs/Day Years Used Date Smoking Tobacco: Never Assessed Comments Unknown Sex and Gender Information Value Date Recorded Sex Assigned at Not on file Legal Sex Female 5:44 AM NEUROLOGICAL SURGEON Gender Identity Not on file Sexual Orientation Not on file documented as of this encounter Plan of Treatment Not on file documented as of this encounter Visit Diagnoses Diagnosis Rheumatoid arthritis(714.0) (CMS/HCC)- Primary Rheumatoid arthritis Encounter for long-term (current) use of other medications documented in this encounter Care Teams Skein Mercerizing Machine Operator Relationship Specialty Start Date End Date Inga Sullivan NP [address] [place] [address] PCP - General 09/20/08 documented as of this encounter
--- OUTSIDE RECORDS SUMMARY | 2025-06-25 09:08 | XMS_ITS | Encounter Summary ---
Author Organization [facility] Address [address] [place] [address] Care Team Providers Care Cigar Inspector Name Role Phone Inga Sullivan HOSPICE PATIENT CARE SECRETARY Primary Care Provider [phone] Encounter Details Date Type Department Care Team (Late st Contact Info) Description 09/07/2007 Outpatient Historical [facility] Rheumatology- [place] [address] [place] [address] Randy Díaz, DO [address] [place] [address] Social History Tobacco Use Types Packs/Day Years Used Date Smoking Tobacco: Never Assessed Comments Unknown Sex and Gender Information Value Date Recorded Sex Assigned at Not on file Legal Sex Female 5:44 AM INFORMATION ANALYST Gender Identity Not on file Sexual Orientation Not on file documented as of this encounter Plan of Treatment Not on file documented as of this encounter Visit Diagnoses Not on filedocumented in this encounter Care Teams Cigar Inspector Relationship Specialty Start Date End Date Inga Sullivan NP [address] [place] [address] PCP - General 09/20/08 documented as of this encounter
--- OUTSIDE RECORDS SUMMARY | 2025-06-25 09:08 | XMS_ITS | Encounter Summary ---
Author Organization [facility] Address [address] [place] [address] Care Team Providers Care Machine Tool Designer Name Role Phone Inga Sullivan RADIOCHEMICAL TECHNICIAN Primary Care Provider [phone] Encounter Details Date Type Department Care Team (Late st Contact Info) Description 02/19/2004 Outpatient Historical [facility] Rheumatology- [place] Ravindra [place] [address] [place] [address] Randy Díaz, [address] [place] [address] RHEUMATOID ARTHRITIS (CMS/[facility]) (Primary Dx); AFTERCARE [facility] USE MEDICATN Social History Tobacco Use Types Packs/Day Years Used Date Smoking Tobacco: Never Assessed Comments Unknown Sex and Gender Information Value Date Recorded Sex Assigned at Not on file Legal Sex Female 5:44 AM 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
--- OUTSIDE RECORDS SUMMARY | 2025-06-25 09:08 | XMS_ITS | Encounter Summary ---
Author Organization [facility] Address [address] [place] [address] Care Team Providers Care Entry Level Accounting Clerk Name Role Phone Inga Sullivan BLISTER RUST ERADICATOR Primary Care Provider [phone] Encounter Details Date Type Department Care Team (Late st Contact Info) Description 05/11/2005 Outpatient Historical [facility] Rheumatology- [place] Ravindra [place] [address] [place] [address] Randy Díaz, [address] [facility] [address] [place] [address] RHEUMATOID ARTHRITIS (CMS/[facility]) (Primary Dx); AFTERCARE SHELTER USE MEDICATN Social History Tobacco Use Types Packs/Day Years Used Date Smoking Tobacco: Never Assessed Comments Unknown Sex and Gender Information Value Date Recorded Sex Assigned at Not on file Legal Sex Female 5:44 AM HAIR STYLIST Gender Identity Not on file Sexual Orientation Not on file documented as of this encounter Plan of Treatment Not on file documented as of this encounter Visit Diagnoses Diagnosis Rheumatoid arthritis(714.0) (CMS/HCC)- Primary Rheumatoid arthritis Encounter for long-term (current) use of other medications documented in this encounter Care Teams Entry Level Accounting Clerk Relationship Specialty Start Date End Date Inga Sullivan NP [address] [place] [address] PCP - General 09/20/08 documented as of this encounter
--- OUTSIDE RECORDS SUMMARY | 2025-06-25 09:08 | XMS_ITS | Encounter Summary ---
Author Organization [facility] Address [address] [place] [address] Care Team Providers Care Tail Worker Name Role Phone Inga Sullivan DRY BOSS Primary Care Provider [phone] Encounter Details Date Type Department Care Team (Late st Contact Info) Description 12/31/2004 Outpatient Historical [facility] Rheumatology- [place] Ravindra [place] [address] [place] [address] Randy Díaz, [address] [place] [address] RHEUMATOID ARTHRITIS (CMS/[facility]) (Primary Dx); JOINT PAIN-MULT JTS Social History Tobacco Use Types Packs/Day Years Used Date Smoking Tobacco: Never Assessed Comments Unknown Sex and Gender Information Value Date Recorded Sex Assigned at Not on file Legal Sex Female 5:44 AM RN FAMILY PRACTICE Gender Identity Not on file Sexual Orientation Not on file documented as of this encounter Plan of Treatment Not on file documented as of this encounter Visit Diagnoses Diagnosis Rheumatoid arthritis(714.0) (CMS/HCC)- Primary Rheumatoid arthritis Pain in joint, multiple sites documented in this encounter Care Teams Tail Worker Relationship Specialty Start Date End Date Inga Sullivan, [place] [address] [place] [address] PCP - General 09/20/08 documented as of this encounter
--- OUTSIDE RECORDS SUMMARY | 2025-06-25 09:08 | XMS_ITS | Encounter Summary ---
Author Organization [facility] Address [address] [place] [address] Care Team Providers Care Reducing Machine Operator Name Role Phone Inga Sullivan CAUSTIC MIXER Primary Care Provider [phone] Encounter Details Date Type Department Care Team (Late st Contact Info) Description 08/05/2004 Outpatient Historical [facility] Rheumatology- [place] Ravindra [place] [address] [place] [address] Randy Díaz, [address] [facility] [address] [place] [address] RHEUMATOID ARTHRITIS (CMS/[facility]) (Primary Dx); AFTERCARE [facility] USE MEDICATN Social History Tobacco Use Types Packs/Day Years Used Date Smoking Tobacco: Never Assessed Comments Unknown Sex and Gender Information Value Date Recorded Sex Assigned at Not on file 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
[2025-06-25 09:12] VITALS: BP 144/78; PULSE 65; RESP 16; TEMP 36.9; O2SAT 100; BMI 24.7
--- NOTE | 2025-06-25 09:21 | ECG_ITS ---
[facility] Test Date: 2025-06-25 Pat Name: Noemi Quick Department: Room: Gender: Female Research Associate Professor: : [id number] Requested By: Sabina Morris Order Number: [id number] Reading MD: Measurements Intervals [place] Rate: 65 P: 68 MI: 137 QRS: 74 QRSD: 86 T: 61 QT: 411 QTc: 430 Interpretive Statements SINUS RHYTHM [id number] [id number]
--- NOTE | 2025-06-25 09:31 | CT_ITS ---
WS: [id number] CT HEAD NONCONTRAST HISTORY: ford TECHNIQUE: Contiguous axial imaging performed through the brain. Bone and soft tissue windows. Sagittal and coronal reformats reviewed. All CT scans at [facility] use at least one of these dose optimization techniques: automated exposure control; mA and/or kV adjustment per patient size (includes targeted exams where dose is matched to clinical indication); or iterative reconstruction. DLP: 1083.44 mGy.cm COMPARISON: None available. No acute intracranial hemorrhage, midline shift or mass effect. No atrophy or prior infarcts or herniation. Ventricles: Normal size with no hydrocephalus. Paranasal sinuses: As visualized are clear. Mastoid air cells: Well pneumatized. Calvarium and scalp: Skull is intact with no soft tissue edema or swelling. CT/CT head wo con* [id number] IMPRESSION: Unremarkable noncontrast CT head. No acute intracranial edema or hemorrhage.
--- NOTE | 2025-06-25 09:36 | ED_ITS ---
HPI - Dizziness 2 General: Chief Complaint: Dizziness Stated Complaint: Heat raicing and lightheaded/dizzy Time Seen by Provider: 06/25/25 09:22 Source: patient Mode of arrival: ambulatory Limitations: no limitations History of Present Illness: HPI Narrative: 59-year-old female states over the last 10 days she has been having high blood pressures. She states that over that time she has had some mild headaches along with lightheadedness especially when she stands. States her headaches roughly 3 out of 10 she denies any slurred speech or focal weakness. She denies any chest pain denies any history of hypertension in the past. Associated symptoms: Reports headache(s) Related Data Home Medications ?Medication ?Instructions ?Recorded ?Confirmed leflunomide 20 mg tablet 20 mg PO QDAY 01/08/2506/14 prednisone 10 mg tablet 5 mg PO DAILY 03/19/2506/14 triamcinolone acetonide 0.1 % 1 applic topical BID PRN Rash 03/19/25 06/14/25 topical cream Previous Rx's ?Medication ?Instructions ?Recorded albuterol sulfate 90 mcg/actuation 1 inh inhalation QI D PRN shortness 01/08/25 aerosol inhaler (Ventolin HFA) of breath or wheezing # 6.7 grams duloxetine 60 mg capsule,delayed 60 mg PO BID #60 caps 06/14/25 release famotidine 40 mg tablet (Pepcid) 40 mg PO DAILY #30 ta bs 06/14/25 gabapentin 800 mg tablet 800 mg PO TID #90 tabs 06/14 levothyroxine 25 mcg tablet 12.5 mcg (1/2 x 25 mcg) PO DAILY 06/14/25 (Levo-T) #30 tabs loperamide 2 mg capsule (Imodium 2 mg PO Q6H PRN loose stool #8 caps 06/14/25 A-D) metoprolol succinate 25 mg 25 mg PO QPM #30 tabs 06/14 tablet,extended release 24 hr nortriptyline 10 mg capsule See Rx Instructions PO BED TIME #90 06/14/25 caps tizanidine 2 mg tablet 2 mg PO Q12H PRN muscle spas ms #60 06/14/25 tabs umeclidinium 62.5 mcg-vilanterol 1 inh inhalation ALEKS Y #60 ea 06/14/25 25 mcg/actuation powdr for inhalation (Anoro Ellipta) amlodipine 10 mg tablet (Norvasc) 10 mg PO DAILY #30 t abs 06/25/25 Allergies Allergy/AdvReac Type Severity Reaction Status Date / Time latex Allergy Mild Rash Verified 06/14/25 14:36 adalimumab (From Humira) Allergy Unknown Verified 06/14/25 14:36 mepivacaine (From Carbocaine) Allergy rash, Verified 06/14/25 14:36 swelling methotrexate Allergy ADR-Diarrhe Verified 06/14/25 14:36 a Sulfa (Sulfonamide Allergy unknown Verified 06/14/25 14:36 Antibiotics) Review of Systems 2 Neuro: Reports: headache(s) PFSH ED 2 PFSH: Medical History Chronic bronchitis Noncompliance with medication regimen Seropositive rheumatoid arthritis of multiple sites Palpitations Immunization counseling History of kidney cancer Single kidney S/p nephrectomy GERD (gastroesophageal reflux disease) Osteoporosis High risk medication use Rheumatoid arthritis with rheumatoid factor Current chronic use of systemic steroids Neoplasm of kidney Surgical History History of nephrectomy, left Due to renal cancer Hx of tonsillectomy Family History Mother Cancer Diabetes Hypertension CAD (coronary artery disease) Rheumatoid arthritis Father Hypertension CAD (coronary artery disease) Myocardial infarction Other Heart disease Lupus Denies family history of Chronic kidney disease (CKD) Systemic lupus erythematosus (SLE) in adult Stroke Social History Smoking and tobacco/nicotine status: former use of tobacco/nicotine Quit status (tobacco/nicotine): has quit using Second hand smoke exposure: No Alcohol intake: never Substance/Drug Use: never Adopted: No Caregiver/support person: No Lives independently: Yes Household members: spouse Housing: House Marital status: Number of children: 3 service: No Current occupational status: unemployed Pets and animals: Yes Pets & animals: dog(s) Do you think of yourself as: Straight/Heterosexual Current gender identity: Female Physical Exam 2 Const: COMMON NORMALS: patient oriented x3 HENMT: COMMON NORMALS: normocephalic and atraumatic HEAD & SCALP: n ormocephalic and atraumatic Eye: COMMON NORMALS: Equal, round and reactive pupils present and EOMs intact bilaterally PUPIL: Yes Equal, round and reactive pupils present Neck/C-Spine: COMMON NORMALS: full ROM and supple Chest: COMMONS NORMALS: normal inspection of the chest and normal palpation of entire chest wall Resp: COMMON NORMALS: normal respiratory effort, No retractions, No use of accessory muscles and clear to auscultation bilaterally AUSCULTATION: clear to auscultation bilaterally Cardio: COMMON NORMALS: regular rate, regular rhythm and No murmurs present (Cardio) RATE: regular rate RHYTHM: regular rhythm GI: COMMON NORMALS: Normal to inspection, nondistended, normoactive bowel sounds present, Soft to palpation, non-tender and no masses PALPATION: Yes Soft to palpation Extremity: COMMON NORMALS: normal to inspection and full ROM Neuro: COMMON NORMALS: patient oriented x3, moves all extremities and no focal motor deficits Psych: COMMON NORMALS: mental status grossly normal, Normal thought process present and cooperative THOUGHT PROCESS: Normal thought process present Skin: COMMON NORMALS: no rashes or lesions noted and no wounds GENERAL SKIN EXAM: no rashes or lesions noted Course 2 Vital Signs: Vital signs: Vital Signs Temperature 98.4 F 06/25/25 09:12 Pulse Rate 82 06/25/25 12:28 Respiratory Rate 19 H 06/25/25 11:00 Blood Pressure 150/89 06/25/25 12:28 Pulse Oximetry 98 06/25/25 12:28 Oxygen Delivery Me thod Room Air 06/25/25 11:30 MDM - Dizziness Medical Decision Making Patient presents here with hypertension over the last 10 days with headache and some generalized weakness. Differential includes CVA, subarachnoid hemorrhage, infection. Patient here does not have severe worst headache of her life or thunderclap her CT here showed no acute abnormality she has no signs of a stroke. EKG here showed normal sinus rhythm heart rate [address] or T wave abnormalities QRS 86 QTc 423. Patient's blood work including troponins were negative. Did review her chest x-ray that showed no acute abnormality. Her blood pressure did improve. Meds along with her headache. Will start her on Norvasc she is to take her blood pressure morning noon tonight and follow-up with her PCP in 5 to 7 days. Return if worsening she understands agrees to plan. Medical Records I reviewed the patient's medical records. Lab Data I reviewed the patient's lab results. 06/25/25 09:37 06/25/25 09:37 Radiology Impressions Chest X-Ray 06/25/25 08:54 IMPRESSION: 1. Pulmonary hyperinflation. No acute process. Head CT 06/25/25 09:31 IMPRESSION: Unremarkable noncontrast CT head. No acute intracranial edema or hemorrhage. Laboratory Results WBC 7.95 10^3/uL (3.29-11.43) 06/25/25 09:37 RBC 4.90 10^6/uL (3.85-5.65) 06/25/25 09:37 Hgb 13.50 g/dL (11.27-16.99) 06/25/25 09:37 Hct 42.5 % (36-47) 06/25/25 09:37 MCV 86.7 fl (85-98) 06/25/25 09:37 MCH 27.6 pg (27-33) 06/25/25 09:37 MCHC 31.8 g/dL (30-55) 06/25/25 09:37 RDW 15.9 % (12.1-15.1) H 06/25/25 09:37 Plt Count 192 10^3/cmm (157-399) 06/25/25 09:37 MPV 11.3 fL (7.4-10.4) H 06/25/25 09:37 Neut % (Auto) 63.2 % 06/25/25 09:37 Lymph % (Auto) 24.9 % 06/25/25 09:37 [place] % (Auto) 10.4 % 06/25/25 09:37 Eos % (Auto) 0.5 % 06/25/25 09:37 Baso % (Auto) 0.5 % 06/25/25 09:37 Neut # (Auto) 5.02 10^3/uL (1.8-7.7) 06/25/25 09:37 Lymph # (Auto) 2.0 10^3/uL (0.8-4.8) 06/25/25 09:37 [place] # (Auto) 0.8 10^3/uL (0.2-0.9) 06/25/25 09:37 Eos # (Auto) 0.0 10^3/uL (0.0-0.8) 06/25/25 09:37 Baso # (Auto) 0.0 10^3/uL (0.0-0.1) 06/25/25 09:37 Nucleated RBC % (auto) 0 % 06/25/25 09:37 Nucleated RBCs # 0.0 /100WBC 06/25/25 09:37 Sodium 143 mmol/L (136-145) 06/25/25 09:37 Potassium 3.2 mmol/L (3.5-5.1) L 06/25/25 09:37 Chloride 105 mmol/L (98-107) 06/25/25 09:37 Carbon Dioxide 24 mmol/L (22-29) 06/25/25 09:37 Anion Gap 17.2 (5-19) 06/25/25 09:37 BUN 6 mg/dL (8-23) L 06/25/25 09:37 Creatinine 0.7 mg/dL (0.5-0.9) 06/25/25 09:37 GFR Calculation 85.1 mL/min (90-130) L 06/25/25 09:37 Glucose 105 mg/dL (65-115) 06/25/25 09:37 Calculated Osmolality 294 mOsm/kg (285-295) 06/25/25 09:37 Calcium 9.4 mg/dL (8.5-10.5) 06/25/25 09:37 Total Bilirubin 0.4 mg/dL (0.15-1.2) 06/25/25 09:37 AST 22 U/L (0-32) 06/25/25 09:37 ALT 13 U/L (0-33) 06/25/25 09:37 Alkaline Phosphatase 65 U/L (35-105) 06/25/25 09:37 Troponin T Baseline 10 ng/L (0-10) 06/25/25 09:37 Troponin T 120 Minute 10.17 ng/L (0-10) H 06/25/25 11:38 Delta Troponin T 0.17 ABS# (0-10) 06/25/25 11:38 Total Protein 6.9 g/dL (6.6-8.7) 06/25/25 09:37 Albumin 4.4 g/dL (3.5-5.2) 06/25/25 09:37 Globulin 2.5 g/dL (1.3-4.6) 06/25/25 09:37 All radiology interpretation(s) finalized by discharge EKG Data EKG 1: I personally reviewed and interpreted this EKG as follows: EKG interpretation date: 06/25/25 EKG interpretation time: 09:21 Interpretation: nsr hr [address] or t wave abnormalities qrs 86 qtc 423 EKG 2: I personally reviewed and interpreted this EKG as follows: EKG interpretation date: 06/25/25 EKG interpretation time: 11:34 Interpretation: nsr hr [address] elevation qrs 82 qtc 446 Discharge Plan Discharge Patient Disposition: Home Clinical Impression: Headache Hypertension Qualifiers: Hypertension type: unspecified Qualified Code(s): I10 - Essential (primary) hypertension Condition: Stable Prescriptions: New amlodipine [Norvasc] 10 mg tablet 10 mg PO DAILY Qty: 30 0RF No Action leflunomide 20 mg tablet 20 mg PO QDAY albuterol sulfate [Ventolin HFA] 90 mcg/actuation HFA aerosol inhaler 1 inh INHALATION QID PRN (Reason: shortness of breath or wheezing) Qty: 6.7 1RF duloxetine 60 mg capsule,delayed release(DR/EC) 60 mg PO BID Qty: 60 2RF loperamide [Imodium A-D] 2 mg capsule 2 mg PO Q6H PRN (Reason: loose stool) Qty: 8 0RF nortriptyline 10 mg capsule See Rx Instructions PO BEDTIME Qty: 90 2RF Rx Instructions: 10-30mg orally bedtime; famotidine [Pepcid] 40 mg tablet 40 mg PO DAILY Qty: 30 2RF gabapentin 800 mg tablet 800 mg PO TID Qty: 90 2RF levothyroxine [Levo-T] 25 mcg tablet 12.5 mcg PO DAILY Qty: 30 2RF metoprolol succinate 25 mg tablet extended release 24 hr 25 mg PO QPM Qty: 30 2RF tizanidine 2 mg tablet 2 mg PO Q12H PRN (Reason: muscle spasms) Qty: 60 2RF Anoro Ellipta 62.5-25 mcg/actuation blister with device 1 inh inhalation DAILY Qty: 60 2RF prednisone 10 mg tablet 5 mg PO DAILY triamcinolone acetonide 0.1 % cream 1 applic topical BID PRN (Reason: Rash) Rx Instructions: Apply to bilateral legs twice daily as needed for rash. Discharge Orders: Discharge ED (Routine); Ordered 06/25/25 Ordered By: Sabina Morris Referrals: Destin Manzano FNP-C [Primary Care Provider, [facility]] - 4-7 days Discharge Diet: Advance as tolerated Discharge Activity: Resume usual activity Patient Instructions: Hypertension (ED) Print Language: Greek Coding Level of Care Code ED Unix Consultant for Celine Tompkins
[2025-06-25 09:45] LABS: Hematocrit 42.5 % (36-47); Hemoglobin 13.50 g/dL (11.27-16.99); Mean Corpuscular HGB Conc 31.8 g/dL (30-55); Mean Corpuscular Hemoglobin 27.6 pg (27-33); Mean Corpuscular Volume 86.7 fl (85-98); Nucleated Red Blood Cells % 0 %; Platelet Count 192 10^3/cmm (157-399); Red Blood Count 4.90 10^6/uL (3.85-5.65); White Blood Count 7.95 10^3/uL (3.29-11.43)
[2025-06-25] MEDS: hyDRALAzine 20 mg/mL INJ 1 mL 10 MG IVP (09:52)
[2025-06-25 10:04] LABS: Alanine Aminotransferase 13 U/L (0-33); Albumin Level 4.4 g/dL (3.5-5.2); Alkaline Phosphatase 65 U/L (35-105); Anion Gap 17.2 (5-19); Aspartate Amino Transferase 22 U/L (0-32); Blood Urea Nitrogen 6 mg/dL (8-23); Calcium 9.4 mg/dL (8.5-10.5); Carbon Dioxide 24 mmol/L (22-29); Chloride 105 mmol/L (98-107); Creatinine Clr Calc Pharmacy 75.7319; Globulin 2.5 g/dL (1.3-4.6); Glucose 105 mg/dL (65-115); Osmolality Calculated 294 mOsm/kg (285-295); Potassium 3.2 mmol/L (3.5-5.1); Sodium 143 mmol/L (136-145); Total Protein 6.9 g/dL (6.6-8.7)
[2025-06-25 10:44] VITALS: BP 139/89; PULSE 77; O2SAT 99
[2025-06-25 11:00] VITALS: BP 154/119; PULSE 90; RESP 19; O2SAT 100
--- NOTE | 2025-06-25 11:29 | ECG_ITS ---
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
[2025-06-25 11:30] VITALS: BP 135/80; PULSE 85; O2SAT 99
[2025-06-25 12:01] LABS: Troponin(5th) Baseline 10 ng/L (0-10)
[2025-06-25 12:05] LABS: Troponin 5 2HR 10.17 ng/L (0-10); Troponin 5 2HR Delta 0.17 ABS# (0-10)
[2025-06-25 12:28] VITALS: BP 150/89; PULSE 82; O2SAT 98
== END 2025-06-25 12:30 | disposition home or self-care (01) ==
PROVIDERS: Emergency Provider Emergency Medicine; PCP Nurse Practitioner
DX: R51.9 Headache, unspecified (principal); I10 Essential (primary) hypertension; Z87.891 Personal history of nicotine dependence; Z85.528 Personal history of other malignant neoplasm of kidney
CPT/HCPCS: 36415; 70450; 71045; 80053; 84484; 85025; 93005; 96374; 96375; 99285; J0360; J1885

== ENCOUNTER → 2025-08-13 12:11 | Outpatient (BNVA) | payer MEDICAID, SELFPAY | PROVIDERS: PCP Nurse Practitioner; Visit Provider Nurse Practitioner | DX: E78.2 Mixed hyperlipidemia (principal); I10 Essential (primary) hypertension; E04.1 Nontoxic single thyroid nodule; E55.9 Vitamin D deficiency, unspecified | CPT/HCPCS: 80053; 80061; 82306; 82607; 84443; 85025 ==